=== PATIENT | female | born 1955 | race Caucasian/White ===

== ENCOUNTER → 2016-06-23 | Outpatient (CLI) | payer BC ==
--- NOTE | 2016-07-04 20:24 | P.PN ---
Progress Note - Text DATE OF CONSULTATION: 06/23/2016 DATE OF SERVICE: 06/23/2016 CHIEF COMPLAINT: Initial bariatric assessment. HISTORY OF PRESENT ILLNESS: Norman Bain is a 61-year-old female who comes in for bariatric evaluation. Her highest weight is currently at present of 206 pounds. Her ideal body for her 5-foot, 2-1/2-frame is 135 pounds. She is at least 71 pounds overweight. Body mass index is 37.1. She comes in with primary concerns of sleep apnea including hypertension. She also reports osteoarthritis of the bilateral hip and knee joints. In addition, she has severe gastroesophageal reflux disease as well. She reports despite eating foods she also has epigastrium and right upper quadrant abdominal pain. Now she presents for further evaluation and management. PAST MEDICAL HISTORY: 1. Osteoarthritis. 2. Gastroesophageal reflux disease. 3. History of hiatal hernia. 4. Obstructive sleep apnea. 5. Osteoarthritis of diffuse joints. PAST SURGICAL HISTORY: 1. Upper endoscopy. 2. Adenoidectomy. 3. Hysterectomy. 4. Tonsillectomy. 5. Bilateral laparoscopic oophorectomy. 6. Colonoscopy. 7. History of lithotripsy. 8. EGD. MEDICATIONS: 1. Omeprazole. 2. Motrin. ALLERGIES: 1. ASPIRIN. 2. LATEX. 3. PENICILLIN. 4. SULFA. SOCIAL HISTORY: Lifelong nontobacco user. She is . FAMILY HISTORY: Denies any esophageal or stomach cancer. REVIEW OF SYSTEMS: CONSTITUTIONAL: [place] body weight of 135 pounds. Present weight of 206 pounds. Body mass index of 37.1. She is 71 pounds overweight. HEENT: No reports of trouble with vision, hearing or dysphagia. LYMPHATICS: No reports of lumps or bumps around the neck. RESPIRATORY: Has obstructive sleep apnea, untreated. No reports of dyspnea on exertion. CARDIOVASCULAR: No recent chest pain, heart attack. GASTROINTESTINAL: Has a diaphragmatic hiatal hernia including right upper quadrant and epigastric abdominal pain. MUSCULOSKELETAL: Diffuse osteoarthritis where she takes Motrin. NEURO: No reports of stroke or seizure disorder. PSYCH: No reports of depression or suicidal ideation. PHYSICAL EXAM: VITAL SIGNS: 97.5, 86, 16, 131/87; 5 feet 2-1/2 inches, 206 pounds. GENERAL: Well-developed, pleasant female in no acute distress. HEENT: Head is atraumatic, normocephalic. Extraocular movements grossly intact. Moist buccal mucosa. NECK: Supple without lymphadenopathy. CHEST: Nonlabored respirations with bilateral excursions. CARDIOVASCULAR: Regular rate and rhythm. ABDOMEN: Protuberant, soft, nontender, nondistended. MUSCULOSKELETAL: No clubbing, cyanosis, or edema. NEURO: No focal or lateralizing signs. LABS: Hemoglobin was normal at 13.5. Sodium was slightly of 146. Glucose was elevated at 148. ASSESSMENT: 1. Morbid obesity due to excess calories. 2. Body mass index of 37.1. 3. Gastroesophageal reflux disease. 4. Diaphragmatic hiatal hernia. 5. Obstructive sleep apnea. 6. Osteoarthritis diffuse along the lower back. 7. Osteoarthritis bilateral hips. 8. Osteoarthritis of bilateral knees. 9. Gallbladder disease. PLAN: 1. She reports discomfort along the epigastrium and right upper quadrant highly suspicious of gallbladder disease. Recommend right upper quadrant ultrasound for further evaluation and management. 2. In the interim, surgical options for Sabrina fundoplasty including gastric bypass were reviewed for symptomatic relief of reflux disease. She is specifically looking into a Benedict-en-Y gastric bypass. 3. Recommend bariatric diesel service journeyman classes. 4. Upper endoscopy is completed. 5. Recommend psych assessment. 6. Will need medical risk assessment. 7. Recommend followup upon completion of her laboratory work including additional information for bariatric metabolic profile. PLAN: 1. She reports medications for reflux are not working, I am highly suspicious for underlying gallbladder disease. Recommend right upper quadrant ultrasound. 2. She has completed already 6-month medical supervised weight loss. She demonstrated understanding for weight loss operations. 3. [place] [facility] data has been reviewed in detail between a band, sleeve gastrectomy and a gastric bypass. She elected for a gastric bypass especially for improvement of her reflux disease. Benefits and risks for all procedures were reviewed in detail. 4. Deep venous thrombosis prophylaxis per protocol. 5. Antibiotic prophylaxis per protocol. 6. At this time, still is pending additional consultants evaluation and primary care provider letter.
== END | disposition home or self-care (01) ==
CPT/HCPCS: 99211

== ENCOUNTER → 2016-06-25 | Outpatient (CLI) | payer BC ==
[2016-06-25 14:01] LABS: EKG EKG PERFORMED
[2016-06-25 14:40] LABS: CH 29.3; CHCM 32.5; HCT 41.1 % (34.0-46.0); HDW 2.69; HGB 13.3 gm/dL (11.4-16.0); MCH 29.2 pg (25.0-35.0); MCHC 32.2 g/dL (31.0-37.0); MCV 90.7 fL (80.0-100.0); Mean Platelet Volume 7.3; RBC 4.54 m/uL (3.80-5.40); RDW 13.6 % (11.5-15.5); WBC 6.8 k/uL (3.8-10.6)
[2016-06-25 14:49] LABS: Hemoglobin A1C 5.9 % (4.2-6.1)
[2016-06-25 15:52] LABS: ALT 27 U/L (9-52); AST 20 U/L (14-36); Alkaline Phosphatase 74 U/L (38-126); Anion Gap 11 mmol/L; Blood Urea Nitrogen 15 mg/dL (7-17); Calcium 9.1 mg/dL (8.4-10.2); Carbon Dioxide 27 mmol/L (22-30); Chloride 106 mmol/L (98-107); Cholesterol 243 mg/dL (<200); Glucose 126 mg/dL (74-99); HDL Cholesterol 49 mg/dL (40-60); Iron 73 ug/dL (37-170); Non-African American GFR(MDRD) >60 (>60 ml/min/1.73 sqM); Potassium 4.2 mmol/L (3.5-5.1); Sodium 144 mmol/L (137-145); Total Bilirubin 0.5 mg/dL (0.2-1.3); Triglycerides 447 mg/dL (<150)
[2016-06-25 16:33] LABS: % Iron Saturation 20.3 % (20-50); Total Iron Binding Capacity 359 ug/dL (265-497)
[2016-06-25 17:01] LABS: Vitamin B12 283 pg/mL (239-931)
[2016-06-29 07:24] LABS: Anabasine Urine <2.0 ng/mL (<2.0)
== END | disposition home or self-care (01) ==
LOC: LABWHC1 13:51
PROVIDERS: ATTEND Surgery Plastic and Reconstructive Surgery
DX: E66.01 Morbid (severe) obesity due to excess calories (principal); E89.1 Postprocedural hypoinsulinemia; D50.8 Other iron deficiency anemias; E55.9 Vitamin D deficiency, unspecified; E44.0 Moderate protein-calorie malnutrition; I11.9 Hypertensive heart disease without heart failure; G47.30 Sleep apnea, unspecified; Z68.37 Body mass index [BMI] 37.0-37.9, adult
CPT/HCPCS: 36415; 80053; 80061; 80323; 82306; 82607; 82728; 82746; 83036; 83540; 83550; 84425; 84443; 85027; 93005

== ENCOUNTER → 2016-09-23 | Outpatient (CLI) | payer BC ==
--- NOTE | 2016-09-23 19:16 | CONS ---
DATE OF CONSULTATION: 09/23/2016 CONSULTATION/NEW PATIENT EVALUATION 61-year-old lady who has been evaluated in the [facility] for possible obstructive sleep apnea/hypopnea syndrome. HISTORY OF PRESENT ILLNESS/SLEEP-WAKE EVALUATION: SLEEP SCHEDULE: Patient's usual sleep schedule on weekdays is from 8 or 9:00 p.m. until 6:00 a.m. and on weekends from around 9 and 10:00 p.m. until 7:38 a.m. FALLING ASLEEP: Sometimes she has problem with falling asleep, although no TV in bedroom. DURING SLEEP: She sleeps on the side position with her and according to him she has extremely loud snoring and she wakes up with gasping for air, sweating, grinding teeth, and nocturia at least 2 times per night. DURING THE DAY/WAKE STATE: In the morning she wakes up tired, has problems with memory, concentration. [place] Sleepiness Scale is 3. Sometimes patient has movements with her feet at night. PAST MEDICAL HISTORY: Positive for acid reflux, hiatal hernia, plantar fasciitis. History of 2 nasal fractures. PAST SURGICAL HISTORY: Tonsillectomy, hysterectomy, ovariectomy. MEDICATIONS: Vitamin D, omeprazole. SOCIAL HISTORY: Negative for smoking or using alcohol. REVIEW OF SYSTEMS: Multiple awakenings from sleep, snoring, sometimes sleepiness. No fevers. No double vision. No recent chest pain. No shortness of breath. No abdominal pain. No bleeding episodes. No blood in urine. No seizure episodes. FAMILY HISTORY: Heart problems, hyperlipidemia, stroke, arthritis, sinus problems, snoring, acid reflux neck. PHYSICAL EXAMINATION: GENERAL: During physical exam lady without distress. VITAL SIGNS: BP 134/74, HR 92, RR 16. Height 5 feet 2-1/2, weight 209. BMI 37.6. Neck 14-1/2 inches in circumference. Temperature 98.2. Oxygen saturation at room air 95%. HEENT: PERRLA, EOMI. Evaluation of oropharynx showed short distance between soft palate and posterior pharyngeal wall. Some restriction of nasal breathing, possibly nasal septum deviation. NECK: Supple. No JVD. Thyroid is not palpable. LUNGS: Clear to percussion and to auscultation. Good air exchange. No wheezing or rhonchi. HEART: S1, S2 regular. No murmurs, gallops or rubs. ABDOMEN: Slightly obese. Soft and nontender. Bowel sounds are present. No organomegaly appreciated. EXTREMITIES: No clubbing or cyanosis. ACCOUNTS SPECIALIST: Awake, alert, and oriented x3. Cranial nerves 2 to 7 intact. There is no fasciculation or atrophy noted. No focal deficits observed. IMPRESSION: 1. Loud snoring, awakenings from sleep with gasping for air, short distance between soft palate and pharyngeal wall, some restriction of nasal breathing, nocturia, obstructive sleep apnea-hypopnea syndrome. 2. Obesity, body mass index of 37.6. 3. History of nightmares. 4. History of movement of feet during the night; possible PLMS. 5. History of plantar fasciitis. 6. Status post several nasal fractures. 7. Possible nasal septum deviation. 8. Acid reflux. 9. Hiatal hernia. 10. Status post hysterectomy. 11. Status post ovariectomy. 12. Status post tonsillectomy. PLAN: 1. Polysomnography for evaluation of patient's breathing during sleep. 2. CPAP/BiPAP titration if sleep study confirms obstructive sleep apnea-hypopnea syndrome. 3. Preferable position during sleep on the side. 4. No driving if patient feels any sleepiness. Patient is aware of civil and criminal liability for unsafe driving. 5. I will see patient for follow-up visit to explain results of the testing and following plan. Thank you very much for referring this patient for consultation. Sincerely, Charbel Petty MD, PhD, FAASM. Diplomat of [place] [employer], Sleep Medicine Board by [employer] [employer] [facility] [employer] [facility]
== END | disposition home or self-care (01) ==
LOC: SLEEP 14:41
PROVIDERS: ATTEND Internal Medicine
DX: G47.33 Obstructive sleep apnea (adult) (pediatric) (principal); E66.9 Obesity, unspecified; Z68.37 Body mass index [BMI] 37.0-37.9, adult; K21.9 Gastro-esophageal reflux disease without esophagitis; Z79.899 Other long term (current) drug therapy
CPT/HCPCS: 99211

== ENCOUNTER 2016-11-15 23:41 | Emergency (ER) | payer BC ==
[2016-11-15 23:51] VITALS: TEMP 96.9
[2016-11-16] MEDS ORDERED: SODIUM CHLORIDE 0.9% 500 ML IV STA (00:03)
[2016-11-16] MEDS ORDERED: diphenhydrAMINE 50 MG/ML 1 ML VIAL IVP STA (00:03)
--- NOTE | 2016-11-16 01:19 | XR ---
EXAM: XR Chest, 2 Views CLINICAL HISTORY: Reason: dysrhythmia TECHNIQUE: Frontal and lateral views of the chest. COMPARISON: 12/30/15. FINDINGS: Mild left base atelectasis. No consolidation or vascular congestion. Tortuous aorta. No pleural effusion or pneumothorax. IMPRESSION: No evidence of acute pulmonary disease
--- NOTE | 2016-11-16 01:42 | ED ---
Arrhythmia/Palpitations HPI - General Chief Complaint: Arrhythmia/Palpitations Stated Complaint: Allergic Reaction Time Seen by Provider: 11/15/16 23:59 Source: patient Mode of arrival: ambulatory Limitations: no limitations - History of Present Illness Initial Comments: Patient complains of palpitations. She thinks it might be related to medication she is taking. She also has a rash. She denies any fever, chills, chest pain or shortness of breath. She has no belly or back pain. She has no nausea or vomiting. She has no pain or swelling in the legs. Nothing makes her symptoms of palpitations better or worse. She has taken no specific medication for this. She denies any recent long plane or cards. - Related Data Home Medications Medication Instructions Recorded Confirmed Ibuprofen [Motrin] 1 mg PO Q6HR PRN 05/19/16 06/23/16 Previous Rx's Medication Instructions Recorded Omeprazole 40 mg PO AC-BRKFST #90 cap 12/17/15 Ergocalciferol [Vitamin D2 50,000 unit PO Q7D #12 cap 07/27/16 (DRISDOL)] Allergies Allergy/AdvReac Type Severity Reaction Status Date / Time acetaminophen [From [place]] Allergy Unknown Verified 11/15/16 23:47 aspirin Allergy asthma Verified 11/15/16 23:46 attack hydrocodone [From [place]] Allergy Unknown Verified 11/15/16 23:47 latex Allergy Anaphylaxis Verified 11/15/16 23:46 Penicillins Allergy Rash/Hives Verified 11/15/16 23:46 Sulfa (Sulfonamide Allergy painful Verified 11/15/16 23:46 Antibiotics) rash Review of Systems ROS Statement: Those systems with pertinent positive or pertinent negative responses have been documented in the HPI. ROS Other: All systems not noted in ROS Statement are negative. Past Medical History Past Medical History: GERD/Reflux, Hyperlipidemia Additional Past Medical History / Comment(s): migraines, History of Any Multi-Drug Resistant Organisms: None Reported Past Surgical History: Adenoidectomy, Hysterectomy, Tonsillectomy Additional Past Surgical History / Comment(s): BILATERAL oophorectomy,emergency laproscopic surgery, egd, colonoscopy and shockwave lithotripsy Past Anesthesia/Blood Transfusion Reactions: Previous Problems w/ Anesthesia, Postoperative Nausea & Vomiting (PONV) Additional Past Anesthesia/Blood Transfusion Reaction / Comment(s): "was in coma for 4 days after exploratory laproscopy had very low blood pressure. Prior to surgery,had internal bleeding " Past Psychological History: No Psychological Hx Reported Smoking Status: Never smoker Past Alcohol Use History: None Reported Past Drug Use History: None Reported - Past Family History Mother Family Medical History: Deep Vein Thrombosis (DVT) General Exam Limitations: no limitations General appearance: alert, in no apparent distress Head exam: Present: atraumatic, normocephalic, normal inspection Eye exam: Present: normal appearance, PERRL, EOMI. Absent: scleral icterus, conjunctival injection, periorbital swelling ENT exam: Present: normal exam, mucous membranes moist Neck exam: Present: normal inspection. Absent: tenderness, meningismus, lymphadenopathy Respiratory exam: Present: normal lung sounds bilaterally. Absent: respiratory distress, wheezes, rales, rhonchi, stridor Cardiovascular Exam: Present: regular rate, normal rhythm, normal heart sounds. Absent: systolic murmur, diastolic murmur, rubs, gallop, clicks GI/Abdominal exam: Present: soft, normal bowel sounds. Absent: distended, tenderness, guarding, rebound, rigid Extremities exam: Present: normal inspection, full ROM, normal capillary refill. Absent: tenderness, pedal edema, joint swelling, calf tenderness Back exam: Present: normal inspection Neurological exam: Present: alert, oriented X3, CN II-XII intact Psychiatric exam: Present: normal affect, normal mood Skin exam: Present: warm, dry, intact, normal color. Absent: rash Course Vital Signs 11/15/16 23:47 Temperature 96.9 F L Pulse Rate 88 Respiratory 18 Rate Blood Pressure 170/77 O2 Sat by Pulse 98 Oximetry EKG Findings - EKG Comments: EKG Findings:: Twelve-lead EKG obtained, interpreted by me as showing ventricular rate 87 bpm, normal ID interval and QRS complexes, no ST elevation or depression, interpreted by me as normal sinus rhythm. Medical Decision Making - Medical Decision Making Patient complained of palpitations. She also had a rash. Her labs are normal. Her exam is benign. Her EKG is unremarkable. There is no evidence of an emergency condition. Patient is stable for discharge. - Lab Data Result diagrams: 11/16/16 01:31 11/16/16 01:31 Lab Results 11/16/16 11/16/16 11/16/16 Range/Units 01:31 01:31 01:31 WBC 8.0 (3.8-10.6) k/uL RBC 4.31 (3.80-5.40) m/uL Hgb 12.4 (11.4-16.0) gm/dL Hct 38.6 (34.0-46.0) % MCV 89.6 (80.0-100.0) fL MCH 28.8 (25.0-35.0) pg MCHC 32.1 (31.0-37.0) g/dL RDW 13.6 (11.5-15.5) % Plt Count 278 (150-450) k/uL Neutrophils % 67 % Lymphocytes % 22 % Monocytes % 6 % Eosinophils % 3 % Basophils % 2 % Neutrophils # 5.3 (1.3-7.7) k/uL Lymphocytes # 1.7 (1.0-4.8) k/uL Monocytes # 0.5 (0-1.0) k/uL Eosinophils # 0.2 (0-0.7) k/uL Basophils # 0.1 (0-0.2) k/uL PT 9.9 (9.0-12.0) sec INR 1.0 (<1.1) APTT 21.2 L (22.0-30.0) sec Sodium 141 (137-145) mmol/L Potassium 3.8 (3.5-5.1) mmol/L Chloride 108 H (98-107) mmol/L Carbon Dioxide 22 (22-30) mmol/L Anion Gap 11 mmol/L BUN 15 (7-17) mg/dL Creatinine 1.00 (0.52-1.04) mg/dL Est GFR (MDRD) Af Amer >60 (>60 ml/min/1.73 sqM) Est GFR (MDRD) Non-Af 57 (>60 ml/min/1.73 sqM) Glucose 103 H (74-99) mg/dL Calcium 8.7 (8.4-10.2) mg/dL Magnesium 2.0 (1.6-2.3) mg/dL Total Bilirubin 0.5 (0.2-1.3) mg/dL AST 19 (14-36) U/L ALT 28 (9-52) U/L Alkaline Phosphatase 62 (38-126) U/L Troponin I (0.000-0.034) ng/mL Total Protein 6.4 (6.3-8.2) g/dL Albumin 3.8 (3.5-5.0) g/dL TSH 2.500 (0.465-4.680) mIU/L 11/16/16 Range/Units 01:31 WBC (3.8-10.6) k/uL RBC (3.80-5.40) m/uL Hgb (11.4-16.0) gm/dL Hct (34.0-46.0) % MCV (80.0-100.0) fL MCH (25.0-35.0) pg MCHC (31.0-37.0) g/dL RDW (11.5-15.5) % Plt Count (150-450) k/uL Neutrophils % % Lymphocytes % % Monocytes % % Eosinophils % % Basophils % % Neutrophils # (1.3-7.7) k/uL Lymphocytes # (1.0-4.8) k/uL Monocytes # (0-1.0) k/uL Eosinophils # (0-0.7) k/uL Basophils # (0-0.2) k/uL PT (9.0-12.0) sec INR (<1.1) APTT (22.0-30.0) sec Sodium (137-145) mmol/L Potassium (3.5-5.1) mmol/L Chloride (98-107) mmol/L Carbon Dioxide (22-30) mmol/L Anion Gap mmol/L BUN (7-17) mg/dL Creatinine (0.52-1.04) mg/dL Est GFR (MDRD) Af Amer (>60 ml/min/1.73 sqM) Est GFR (MDRD) Non-Af (>60 ml/min/1.73 sqM) Glucose (74-99) mg/dL Calcium (8.4-10.2) mg/dL Magnesium (1.6-2.3) mg/dL Total Bilirubin (0.2-1.3) mg/dL AST (14-36) U/L ALT (9-52) U/L Alkaline Phosphatase (38-126) U/L Troponin I <0.012 (0.000-0.034) ng/mL Total Protein (6.3-8.2) g/dL Albumin (3.5-5.0) g/dL TSH (0.465-4.680) mIU/L Disposition Clinical Impression: Palpitation Disposition: HOME SELF-CARE Condition: Good Instructions: Palpitations (ED) Referrals: Jessica Mulligan III, MD [Primary Care Provider] - 1-2 days Time of Disposition: 02:49
[2016-11-16 01:49] LABS: Basophils # (A) 0.1 k/uL (0-0.2); Basophils % (A) 2 %; CH 29.2; CHCM 32.7; Eosinophils # (A) 0.2 k/uL (0-0.7); Eosinophils % (A) 3 %; HCT 38.6 % (34.0-46.0); HDW 2.56; HGB 12.4 gm/dL (11.4-16.0); Luc # (Auto) 0.16; Luc % (Auto) 2; Lymphocytes # (A) 1.7 k/uL (1.0-4.8); Lymphocytes % (A) 22 %; MCH 28.8 pg (25.0-35.0); MCHC 32.1 g/dL (31.0-37.0); MCV 89.6 fL (80.0-100.0); Mean Platelet Volume 6.5; Monocytes # (A) 0.5 k/uL (0-1.0); Monocytes % (A) 6 %; Neutrophils # (A) 5.3 k/uL (1.3-7.7); Neutrophils % (A) 67 %; RBC 4.31 m/uL (3.80-5.40); RDW 13.6 % (11.5-15.5); WBC (Perox) 8.25
[2016-11-16 01:55] LABS: Prothrombin Time 9.9 sec (9.0-12.0)
[2016-11-16 02:06] LABS: ALT 28 U/L (9-52); AST 19 U/L (14-36); Alkaline Phosphatase 62 U/L (38-126); Anion Gap 11 mmol/L; Blood Urea Nitrogen 15 mg/dL (7-17); Calcium 8.7 mg/dL (8.4-10.2); Carbon Dioxide 22 mmol/L (22-30); Chloride 108 mmol/L (98-107); Glucose 103 mg/dL (74-99); Non-African American GFR(MDRD) 57 (>60 ml/min/1.73 sqM); Potassium 3.8 mmol/L (3.5-5.1); Sodium 141 mmol/L (137-145); Total Bilirubin 0.5 mg/dL (0.2-1.3); Total Protein 6.4 g/dL (6.3-8.2)
[2016-11-16 02:07] LABS: Partial Thromboplastin Time 21.2 sec (22.0-30.0)
[2016-11-16 03:04] VITALS: BP 119/61; PULSE 79; RESP 16
== END 2016-11-16 03:04 | disposition home or self-care (01) ==
LOC: EC 23:41
DX: R00.2 Palpitations (principal); R21 Rash and other nonspecific skin eruption; Z88.0 Allergy status to penicillin; Z88.2 Allergy status to sulfonamides; Z88.5 Allergy status to narcotic agent; Z88.6 Allergy status to analgesic agent; Z91.040 Latex allergy status
CPT/HCPCS: 99283; 96374; 96361 ×3; 36415; 93005; 80053; 83735; 84443; 84484; 85025; 85610; 85730; 71020; J1200

== ENCOUNTER → 2016-11-17 | Outpatient (CLI) | payer BC ==
--- NOTE | 2016-11-17 15:41 | XR ---
EXAMINATION TYPE: XR KUB DATE OF EXAM: 11/17/2016 COMPARISON: 05/28/2016 INDICATION: Ureteral calculus TECHNIQUE: Single view abdomen supine view FINDINGS: There is a normal bowel gas pattern. Psoas margins are normal. No organomegaly is present. Suspicious renal or ureteral stones are not identified. Phleboliths within the pelvis are stable. Pre vious right renal stone is not excluded although overlies fecal debris on the abdomen supine projecti on. IMPRESSION: 1. Unremarkable Abdomen
== END | disposition home or self-care (01) ==
LOC: RADXRMAIN 14:20
PROVIDERS: ATTEND Physician Assistant
DX: N20.1 Calculus of ureter (principal)
CPT/HCPCS: 74000

== ENCOUNTER → 2016-12-13 | Outpatient (CLI) | payer BC ==
[2016-12-13 13:14] VITALS: BMI 37.0
== END | disposition home or self-care (01) ==
LOC: BARWHC3 07:37
PROVIDERS: ATTEND Surgery Plastic and Reconstructive Surgery
DX: E66.01 Morbid (severe) obesity due to excess calories (principal); Z71.3 Dietary counseling and surveillance
CPT/HCPCS: 97804

== ENCOUNTER → 2016-12-15 | Outpatient (CLI) | payer BC ==
[2016-12-15 14:44] LABS: Basophils # (A) 0.1 k/uL (0-0.2); Basophils % (A) 1 %; CH 28.9; CHCM 33.2; Eosinophils # (A) 0.2 k/uL (0-0.7); Eosinophils % (A) 2 %; HCT 39.9 % (34.0-46.0); HDW 2.69; HGB 13.5 gm/dL (11.4-16.0); Luc # (Auto) 0.17; Luc % (Auto) 2; Lymphocytes # (A) 1.6 k/uL (1.0-4.8); Lymphocytes % (A) 19 %; MCH 29.6 pg (25.0-35.0); MCHC 33.9 g/dL (31.0-37.0); Mean Platelet Volume 6.8; Monocytes # (A) 0.5 k/uL (0-1.0); Monocytes % (A) 5 %; Neutrophils % (A) 71 %; RBC 4.57 m/uL (3.80-5.40); RDW 13.5 % (11.5-15.5); WBC 8.4 k/uL (3.8-10.6); WBC (Perox) 9.17
[2016-12-15 14:59] LABS: Anion Gap 10 mmol/L; Blood Urea Nitrogen 16 mg/dL (7-17); Calcium 9.4 mg/dL (8.4-10.2); Carbon Dioxide 28 mmol/L (22-30); Chloride 105 mmol/L (98-107); Glucose 109 mg/dL (74-99); Non-African American GFR(MDRD) >60 (>60 ml/min/1.73 sqM); Potassium 4.1 mmol/L (3.5-5.1); Sodium 143 mmol/L (137-145)
[2016-12-15 15:08] LABS: MCV 87.4 fL (80.0-100.0)
== END | disposition home or self-care (01) ==
LOC: LABWHC1 14:14
PROVIDERS: ATTEND Physician Assistant
DX: Z01.812 Encounter for preprocedural laboratory examination (principal); E78.5 Hyperlipidemia, unspecified; N20.0 Calculus of kidney
CPT/HCPCS: 36415; 80048; 85025

== ENCOUNTER 2016-12-20 08:28 | Day surgery (SDC) | payer BC ==
[2016-12-15 09:34] VITALS: BMI 37.5
[~2016-12-20 08:28] MED LIST: DEXAMETHASONE SOD PHOSPHATE 10 MG/ML 1 ML VIAL IV ONE; LACTATED RINGERS 1,000 ML IV SCH; LIDOCAINE 1% 20 ML VIAL (10MG/ML) FOR IV START INTRADERMA PRN; ONDANSETRON 4 MG/2 ML VIAL IVP ONE; Pre Op ABX Message 1 EACH MISC MISCELLANE ONE; SCOPOLAMINE 1.5MG/72HR PATCH TRANSDERM ONE; fentaNYL (PF) 50 MCG/ML 2 ML AMP IV PRN
--- NOTE | 2016-12-20 08:34 | XR ---
EXAMINATION TYPE: XR KUB DATE OF EXAM: 12/20/2016 8:21 AM CLINICAL HISTORY: Right-sided kidney stone, prelithotripsy. TECHNIQUE: 2 supine KUB images of the abdomen are obtained. COMPARISON: Abdominal x-ray November 17, 2016. CT abdomen and pelvis April 15, 2016. FINDINGS: There is stable 4 x 3 mm calculus right kidney projecting over right T12 rib centrally . Th ere are stable phleboliths bilaterally, right greater than left. Curvilinear calcifications above rig ht sacroiliac joint are redemonstrated presumed vascular. There is overall nonobstructive bowel gas pattern. Visualized osseous structures are intact. IMPRESSION: Stable positioning and appearance of 4 x 3 mm right mid renal calculus
[2016-12-20 09:15] VITALS: TEMP 96.9
[2016-12-20] MEDS ORDERED: PROPOFOL 10 MG/ML 20 ML VIAL IV ONE (09:57)
[2016-12-20] MEDS ORDERED: GLYCOPYRROLATE 0.2 MG/ML 2 ML VIAL ONE (09:57)
[2016-12-20] MEDS ORDERED: MIDAZOLAM 2 MG/2 ML VIAL ONE (09:57)
[2016-12-20] MEDS ORDERED: LIDOCAINE 1% INJ 10MG/ML (20 ML MDV) ONE (09:57)
[2016-12-20] MEDS ORDERED: KETAMINE 10 MG/ML 20 ML VIAL ONE (09:57)
[2016-12-20] MEDS ORDERED: fentaNYL (PF) 50 MCG/ML 2 ML AMP ONE (09:57)
--- NOTE | 2016-12-20 10:53 | P.OP ---
Date of Procedure: 12/20/16 Preoperative Diagnosis: Right renal calculus Postoperative Diagnosis: Same Procedure(s) Performed: Right Extracorporal Shockwave Lithotripsy (ESWL) Implants: Anesthesia: MAC Surgeon: Jayjay Owen Estimated Blood Loss (ml): 0 IV fluids (ml): 500 Pathology: none sent Condition: stable Disposition: PACU Indications for Procedure: She is a 61 year old female with a history of kidney stones. She was in [facility], and developed severe nausea, vomiting and right flank pain. She went to a local ER and CT showed a 3 mm distal right ureteral calculus and a 3 mm right renal calculus. There was no hydronephrosis. She passed the ureteral calculus, but a repeat KUB x-ray shows a persistent 4 mm right renal calculus. She now comes for ESWL. Operative Findings: Questionable fragmentation. Description of Procedure: The patient was taken to the operating room and placed on the Dornier Compact Delta II lithotripter in the supine position. The calculus was seen on biplanar fluoroscopy. Once the patient was properly positioned and sedated, lithotripsy was performed. The energy level was gradually increased per protocol, to an energy level of 5. After 200 shocks were administered, a 2 minute pause was instituted per protocol. A total of 2500 shocks were given at a rate of 80 shocks per minute. Fluoroscopy was utilized at a minimum to ensure proper positioning and determine the treatment status. The appearance of the calculus appeared to change, suggesting fragmentation may have occurred. The patient tolerated the procedure well was taken to the recovery room in stable condition. Instructions were given to strain the urine, and the patient will follow-up within one week.
[2016-12-20 11:28] VITALS: RESP 16
[2016-12-20 11:42] VITALS: BP 134/73; PULSE 70
== END 2016-12-20 12:48 | disposition home or self-care (01) ==
LOC: ORWHC2ENDO 08:28
PROVIDERS: ATTEND Urology
DX: N20.0 Calculus of kidney (principal); E78.5 Hyperlipidemia, unspecified; J45.909 Unspecified asthma, uncomplicated; G47.33 Obstructive sleep apnea (adult) (pediatric); K21.9 Gastro-esophageal reflux disease without esophagitis; Z79.899 Other long term (current) drug therapy; Z88.5 Allergy status to narcotic agent; Z88.0 Allergy status to penicillin; Z88.2 Allergy status to sulfonamides; Z88.8 Allergy status to other drugs, medicaments and biological substances; Z91.040 Latex allergy status
CPT/HCPCS: 74000; 50590; J2250; J2001; J3010; J2704

== ENCOUNTER → 2016-12-23 | Outpatient (CLI) | payer BC ==
[2016-12-23 11:15] VITALS: BP 132/93; PULSE 81; RESP 16; TEMP 97.9; BMI 36.9
--- NOTE | 2017-01-16 11:41 | P.PN ---
Progress Note - Text DATE OF SERVICE: 12/23/2016 CHIEF COMPLAINT: Bariatric assessment. HISTORY OF PRESENT ILLNESS: Norman Bain is a 61-year-old female who initially presented to the bariatric center, June 2016. Her initial weight was 206 pounds. Today she comes in weighing 205 pounds. She has lost 1 pound in 7 months. Her ideal body for her 5-foot, 2-1/2-frame is 135 pounds. She is 70 pounds overweight. Body mass index is 36.9. She has sleep apnea including hypertension. She reports gastroesophageal reflux disease. Recently, she was treated for kidney stones. She has developed gastric bypass to address her reflux disease as well. She reports having recent procedure and has developed severe postoperative nausea and vomiting. She also reports intolerance to Flomax including Dilaudid. PAST MEDICAL HISTORY: 1. Osteoarthritis. 2. Gastroesophageal reflux disease. 3. History of hiatal hernia. 4. Obstructive sleep apnea. 5. Osteoarthritis of diffuse joints. 6. Kidney stones. PAST SURGICAL HISTORY: 1. Upper endoscopy. 2. Adenoidectomy. 3. Hysterectomy. 4. Tonsillectomy. 5. Bilateral laparoscopic oophorectomy. 6. Colonoscopy. 7. History of lithotripsy. 8. EGD. 9. Cystoscopy. 10. Severe postoperative nausea and vomiting. MEDICATIONS: 1. Omeprazole. 2. Motrin. ALLERGIES: 1. ASPIRIN. 2. LATEX. 3. PENICILLIN. 4. SULFA. 5. FLOMAX. 5. DILAUDID. SOCIAL HISTORY: Lifelong nontobacco user. She is . FAMILY HISTORY: Denies any esophageal or stomach cancer. REVIEW OF SYSTEMS: CONSTITUTIONAL: [place] body weight of 135 pounds. Present weight of 205 pounds. Body mass index of 36.9. She is 70 pounds overweight. HEENT: No reports of trouble with vision, hearing or dysphagia. LYMPHATICS: No reports of lumps or bumps around the neck. RESPIRATORY: Has obstructive sleep apnea, untreated. No reports of dyspnea on exertion. CARDIOVASCULAR: No recent chest pain, heart attack. GASTROINTESTINAL: Has a diaphragmatic hiatal hernia including right upper quadrant and epigastric abdominal pain. MUSCULOSKELETAL: Diffuse osteoarthritis where she takes Motrin. GENITONURINARY: History of kidney stones with blood in urine. NEURO: No reports of stroke or seizure disorder. PSYCH: No reports of depression or suicidal ideation. SKIN: No skin cancer. No recent rash. PHYSICAL EXAM: VITAL SIGNS: 5 feet 2-1/2 inches, 205 pounds. BMI 36.9. Vital Signs 12/23/16 11:08 Temperature 97.9 F Pulse Rate 81 Respiratory 16 Rate Blood Pressure 132/93 GENERAL: Well-developed, pleasant female in no acute distress. HEENT: Head is atraumatic, normocephalic. Extraocular movements grossly intact. Moist buccal mucosa. NECK: Supple without lymphadenopathy. CHEST: Nonlabored respirations with bilateral excursions. CARDIOVASCULAR: Regular rate and rhythm. ABDOMEN: Protuberant, soft, nontender, nondistended. MUSCULOSKELETAL: No clubbing, cyanosis, or edema. NEURO: No focal or lateralizing signs. Cranial nerves II-12. SKIN: Good skin turgor. Well-perfused. LABS: Reviewed. ASSESSMENT: 1. Morbid obesity due to excess calories. 2. Body mass index of 36.9. 3. Gastroesophageal reflux disease. 4. Diaphragmatic hiatal hernia. 5. Obstructive sleep apnea. 6. Osteoarthritis diffuse along the lower back. 7. Osteoarthritis bilateral hips. 8. Osteoarthritis of bilateral knees. 9. Gallbladder disease. 10. Hypertensive heart disease. 11. History of kidney stones. 12. Metabolic syndrome. PLAN: 1. Benefits and risks of all surgical procedures were reviewed. She has elected for a Benedict-en-Y gastric bypass. 2. An 8 page second-generation bariatric consent form was reviewed in detail. Benefits and risks including leaks, stricture, nutritional deficiencies, need for further surgery were reviewed in detail. 3. DVT prophylaxis. 4. Antibiotic prophylaxis. 5. Recommend postop nausea vomiting protocol. 6. Inpatient hospitalization over 2 nights advised. 7. Potential robotic approach also reviewed with minimally invasive technique.
== END | disposition home or self-care (01) ==
LOC: BARWHC3 10:29
PROVIDERS: ATTEND Surgery Plastic and Reconstructive Surgery
DX: Z48.815 Encounter for surgical aftercare following surgery on the digestive system (principal); E66.01 Morbid (severe) obesity due to excess calories; Z68.36 Body mass index [BMI] 36.0-36.9, adult; K21.9 Gastro-esophageal reflux disease without esophagitis; K44.9 Diaphragmatic hernia without obstruction or gangrene; G47.33 Obstructive sleep apnea (adult) (pediatric); M47.816 Spondylosis without myelopathy or radiculopathy, lumbar region; M16.0 Bilateral primary osteoarthritis of hip; M17.0 Bilateral primary osteoarthritis of knee; I11.9 Hypertensive heart disease without heart failure; E88.81 Metabolic syndrome and other insulin resistance; Z87.442 Personal history of urinary calculi; Z88.6 Allergy status to analgesic agent; Z91.040 Latex allergy status; Z88.0 Allergy status to penicillin; Z88.2 Allergy status to sulfonamides; Z88.8 Allergy status to other drugs, medicaments and biological substances; Z88.5 Allergy status to narcotic agent; Z98.84 Bariatric surgery status
CPT/HCPCS: 99211

== ENCOUNTER → 2016-12-24 | Outpatient (CLI) | payer BC ==
--- NOTE | 2016-12-24 10:21 | XR ---
EXAMINATION TYPE: XR KUB DATE OF EXAM: 12/24/2016 HISTORY: Pain Comparison: 12/20/2016 Single KUB is submitted for interpretation. Findings: Right renal calculi: Previously noted right renal calculus is not identified at this time. Right ureteral calculi: None Visualized. Left renal calculi: None Visualized. Left ureteral calculi: None Visualized. Pelvic calcifications: Pelvic phleboliths remain stable. Bowel gas pattern is unremarkable. No free air. No mass effects. IMPRESSION: 1. Previously noted right renal calculus is not identified at this time.
== END | disposition home or self-care (01) ==
LOC: RADXRMAIN 10:00
PROVIDERS: ATTEND Urology
DX: N20.0 Calculus of kidney (principal)
CPT/HCPCS: 74000

== ENCOUNTER → 2017-02-08 | Outpatient (CLI) | payer BC ==
[2017-02-08 09:05] LABS: Basophils # (A) 0.1 k/uL (0-0.2); Basophils % (A) 1 %; CH 29.2; CHCM 33.1; Eosinophils # (A) 0.1 k/uL (0-0.7); Eosinophils % (A) 2 %; HCT 42.2 % (34.0-46.0); HDW 2.61; HGB 14.2 gm/dL (11.4-16.0); Luc % (Auto) 3; Lymphocytes # (A) 1.2 k/uL (1.0-4.8); Lymphocytes % (A) 19 %; MCH 29.7 pg (25.0-35.0); MCHC 33.6 g/dL (31.0-37.0); MCV 88.5 fL (80.0-100.0); Mean Platelet Volume 6.9; Monocytes # (A) 0.3 k/uL (0-1.0); Monocytes % (A) 5 %; Neutrophils # (A) 4.7 k/uL (1.3-7.7); Neutrophils % (A) 71 %; RBC 4.76 m/uL (3.80-5.40); RDW 13.8 % (11.5-15.5); WBC 6.6 k/uL (3.8-10.6); WBC (Perox) 6.54
[2017-02-08 09:06] LABS: ALT 39 U/L (9-52); AST 29 U/L (14-36); Alkaline Phosphatase 63 U/L (38-126); Anion Gap 11 mmol/L; Blood Urea Nitrogen 23 mg/dL (7-17); Calcium 9.8 mg/dL (8.4-10.2); Carbon Dioxide 27 mmol/L (22-30); Chloride 102 mmol/L (98-107); Glucose 150 mg/dL (74-99); Non-African American GFR(MDRD) 57 (>60 ml/min/1.73 sqM); Potassium 4.8 mmol/L (3.5-5.1); Sodium 140 mmol/L (137-145); Total Bilirubin 0.8 mg/dL (0.2-1.3); Total Protein 7.9 g/dL (6.3-8.2)
== END | disposition home or self-care (01) ==
LOC: LABPAT 08:09
PROVIDERS: ATTEND Surgery Plastic and Reconstructive Surgery
DX: Z01.812 Encounter for preprocedural laboratory examination (principal)
CPT/HCPCS: 36415; 80053; 85025

== ENCOUNTER 2017-02-14 06:08 | Inpatient (IN) | payer BC ==
[2017-02-08 15:26] VITALS: BMI 37.5
--- NOTE | 2017-02-13 12:46 | P.GSHP ---
History of Present Illness H&P Date: 02/14/17 DATE OF SERVICE: 02/14/2017 CHIEF COMPLAINT: Bariatric assessment. HISTORY OF PRESENT ILLNESS: Norman Bain is a 61-year-old female who initially presented to the bariatric center, June 2016. Her initial weight was 206 pounds. Today she comes in weighing 205 pounds. She has lost 1 pound in 7 months. Her ideal body for her 5-foot, 2-/2-frame is 135 pounds. She is 70 pounds overweight. Body mass index is 36.9. She has sleep apnea including hypertension. She reports gastroesophageal reflux disease. Recently, she was treated for kidney stones. She has developed gastric bypass to address her reflux disease as well. She reports having recent procedure and has developed severe postoperative nausea and vomiting. She also reports intolerance to Flomax including Dilaudid. PAST MEDICAL HISTORY: 1. Osteoarthritis. 2. Gastroesophageal reflux disease. 3. History of hiatal hernia. 4. Obstructive sleep apnea. 5. Osteoarthritis of diffuse joints. 6. Kidney stones. PAST SURGICAL HISTORY: 1. Upper endoscopy. 2. Adenoidectomy. 3. Hysterectomy. 4. Tonsillectomy. 5. Bilateral laparoscopic oophorectomy. 6. Colonoscopy. 7. History of lithotripsy. 8. EGD. 9. Cystoscopy. 10. Severe postoperative nausea and vomiting. MEDICATIONS: 1. Omeprazole. 2. Motrin. ALLERGIES: 1. ASPIRIN. 2. LATEX. 3. PENICILLIN. 4. SULFA. 5. FLOMAX. 5. DILAUDID. SOCIAL HISTORY: Lifelong nontobacco user. She is . FAMILY HISTORY: Denies any esophageal or stomach cancer. REVIEW OF SYSTEMS: CONSTITUTIONAL: [place] body weight of 135 pounds. Present weight of 205 pounds. Body mass index of 36.9. She is 70 pounds overweight. HEENT: No reports of trouble with vision, hearing or dysphagia. LYMPHATICS: No reports of lumps or bumps around the neck. RESPIRATORY: Has obstructive sleep apnea, untreated. No reports of dyspnea on exertion. CARDIOVASCULAR: No recent chest pain, heart attack. GASTROINTESTINAL: Has a diaphragmatic hiatal hernia including right upper quadrant and epigastric abdominal pain. MUSCULOSKELETAL: Diffuse osteoarthritis where she takes Motrin. GENITONURINARY: History of kidney stones with blood in urine. NEURO: No reports of stroke or seizure disorder. PSYCH: No reports of depression or suicidal ideation. SKIN: No skin cancer. No recent rash. PHYSICAL EXAM: VITAL SIGNS: 5 feet 2-1/2 inches, 205 pounds. BMI 36.9. GENERAL: Well-developed, pleasant female in no acute distress. HEENT: Head is atraumatic, normocephalic. Extraocular movements grossly intact. Moist buccal mucosa. NECK: Supple without lymphadenopathy. CHEST: Nonlabored respirations with bilateral excursions. CARDIOVASCULAR: Regular rate and rhythm. ABDOMEN: Protuberant, soft, nontender, nondistended. MUSCULOSKELETAL: No clubbing, cyanosis, or edema. NEURO: No focal or lateralizing signs. Cranial nerves II-12. SKIN: Good skin turgor. Well-perfused. LABS: Reviewed. ASSESSMENT: 1. Morbid obesity due to excess calories. 2. Body mass index of 36.9. 3. Gastroesophageal reflux disease. 4. Diaphragmatic hiatal hernia. 5. Obstructive sleep apnea. 6. Osteoarthritis diffuse along the lower back. 7. Osteoarthritis bilateral hips. 8. Osteoarthritis of bilateral knees. 9. Gallbladder disease. 10. Hypertensive heart disease. 11. History of kidney stones. 12. Metabolic syndrome. PLAN: 1. Benefits and risks of all surgical procedures were reviewed. She has elected for a Benedict-en-Y gastric bypass. 2. An 8 page second-generation bariatric consent form was reviewed in detail. Benefits and risks including leaks, stricture, nutritional deficiencies, need for further surgery were reviewed in detail. 3. DVT prophylaxis. 4. Antibiotic prophylaxis. 5. Recommend postop nausea vomiting protocol. 6. Inpatient hospitalization over 2 nights advised. 7. Potential robotic approach also reviewed with minimally invasive technique. Past Medical History Past Medical History: GERD/Reflux, Hyperlipidemia, Sleep Apnea/CPAP/BIPAP Additional Past Medical History / Comment(s): migraines, uses CPAP, hx. kidney stones, plantar fascitis History of Any Multi-Drug Resistant Organisms: None Reported Past Surgical History: Adenoidectomy, Hysterectomy, Tonsillectomy Additional Past Surgical History / Comment(s): BILATERAL oophorectomy,emergency laparoscopic surgery, egd, colonoscopy, lithotripsy Past Anesthesia/Blood Transfusion Reactions: Previous Problems w/ Anesthesia, Motion Sickness, Postoperative Nausea & Vomiting (PONV) Additional Past Anesthesia/Blood Transfusion Reaction / Comment(s): "was in coma for 4 days after exploratory laparoscopy had very low blood pressure. Prior to surgery,had internal bleeding " Smoking Status: Never smoker - Past Family History Mother Family Medical History: Deep Vein Thrombosis (DVT) Medications and Allergies Home Medications Medication Instructions Recorded Confirmed Type Ergocalciferol [Vitamin D2 1.5 mg PO TH 12/15/16 02/08/17 History (DRISDOL)] Omeprazole 40 mg PO DAILY PRN 12/15/16 02/08/17 History Mct Oil 1 tab PO DAILY 02/08/17 History Multivit with Calcium,Iron,Min 1 each PO DAILY 02/08/17 02/08/17 History [Women's Multivitamin] Allergies Allergy/AdvReac Type Severity Reaction Status Date / Time hydrocodone [From [place]] Allergy Severe Anaphylaxis Verified 02/08/17 12:35 acetaminophen [From [place]] Allergy Dyspnea Verified 02/08/17 12:35 aspirin Allergy asthma Verified 02/08/17 12:35 attack hydromorphone [From Dilaudid] Allergy Dyspnea Verified 02/08/17 12:35 latex Allergy Anaphylaxis Verified 02/08/17 12:35 Penicillins Allergy Rash/Hives Verified 02/08/17 12:35 Sulfa (Sulfonamide Allergy painful Verified 02/08/17 12:35 Antibiotics) rash tamsulosin Allergy Rash/Hives Verified 02/08/17 12:35
[~2017-02-14 06:08] MED LIST changes: +CHLORHEXIDINE GLUCONATE 15 ML CUP MUCOUS MEM ONE; -DEXAMETHASONE SOD PHOSPHATE 10 MG/ML 1 ML VIAL IV ONE; +ENOXAPARIN 40 MG/0.4 ML SYRINGE SQ ONE; -LACTATED RINGERS 1,000 ML IV SCH; -LIDOCAINE 1% 20 ML VIAL (10MG/ML) FOR IV START INTRADERMA PRN; +PANTOPRAZOLE 40 MG/10 ML VIAL IV STA; -SCOPOLAMINE 1.5MG/72HR PATCH TRANSDERM ONE; +SCOPOLAMINE 1.5MG/72HR PATCH TRANSDERM STA; +ceFAZolin 2 GM in SODIUM CHLORIDE 0.9% 100 ML IVPB ONE
[2017-02-14] MEDS: LACTATED RINGERS 1,000 ML IV SCH ×2 (06:34→13:37)
[2017-02-14] MEDS ORDERED: LIDOCAINE 1% 20 ML VIAL (10MG/ML) FOR IV START INTRADERMA ONE (06:37)
[2017-02-14] MEDS ORDERED: DEXAMETHASONE SOD PHOSPHATE 10 MG/ML 1 ML VIAL IV ONE (07:05)
[2017-02-14] MEDS ORDERED: LIDOCAINE 1% INJ 10MG/ML (20 ML MDV) ONE (07:36)
[2017-02-14] MEDS ORDERED: SUCCINYLCHOLINE CHLORIDE 100 MG/5 ML SYR IV ONE (07:36)
[2017-02-14] MEDS ORDERED: PHENYLEPHRINE-0.9% NACL SYG 1 MG/10 ML SYRINGE ONE (07:36)
[2017-02-14] MEDS ORDERED: fentaNYL (PF) 50 MCG/ML 2 ML AMP ONE (07:36)
[2017-02-14] MEDS ORDERED: MIDAZOLAM 2 MG/2 ML VIAL ONE (07:36)
[2017-02-14] MEDS ORDERED: LABETALOL 5 MG/ML VIAL MDV ONE (07:36)
[2017-02-14] MEDS ORDERED: VECURONIUM 10 MG VIAL IV ONE (07:36)
[2017-02-14] MEDS ORDERED: NEOSTIGMINE 1 MG/ML 10 ML VIAL ONE (07:36)
[2017-02-14] MEDS ORDERED: GLYCOPYRROLATE 0.2 MG/ML 2 ML VIAL ONE (07:36)
[2017-02-14] MEDS ORDERED: PROPOFOL 10 MG/ML 20 ML VIAL IV ONE (07:36)
--- NOTE | 2017-02-14 07:49 | P.HPADDEND ---
H&P Addendum H&P Addendum Date: 02/14/17 All benefits and risks of robotic approach gastric bypass as described in detail. Patient reports no recollection of ALLERGY to penicillin. Given high risk of infection, will proceed with Ancef. She reports severe postoperative nausea and vomiting for which, magnesium and postop nausea and vomiting protocol initiated.
[2017-02-14] MEDS ORDERED: BUPIVACAINE-EPI 0.5%-1:200,000 10 ML VIAL SQ ONE (08:36)
[2017-02-14] MEDS ORDERED: LACTATED RINGERS 1,000 ML IV ONE ×2 (09:13→11:42)
--- NOTE | 2017-02-14 11:54 | P.PCN ---
Date of Procedure: 02/14/17 Preoperative Diagnosis: Morbid obesity, sleep apnea, hypertension, gastroesophageal reflux disease Postoperative Diagnosis: Same, severe peritoneal adhesions involving the lower midline and omentum Procedure(s) Performed: Laparoscopic lysis of adhesions over 1 hour, laparoscopic gastric bypass 100 cm Benedict limb antecolic antigastric with 25 mm Orvil, intraoperative esophagogastrojejunoscopy Implants: Anesthesia: GETA, local Surgeon: Michelle Bernardo Estimated Blood Loss (ml): 20 Pathology: none sent Condition: stable Disposition: floor Indications for Procedure: Operative Findings: 1. Severe intra-abdominal adhesions involving greater omentum to abdominal wall with lysis of adhesions over 1 hour. 2. Hiatal hernia incorporating superior pole the stomach reduced adding complexity to the case, by 40 minutes 3. At least 4 robotic blue dorota used to divide gastric pouch with another 3 purple staplers 1-60 mm and 2-45 millimeter staplers to complete gastric pouch 4. 8 robotic dorota used throughout case. 5. Robotic console time 82 minutes 6. No ALLERGIC reaction to Ancef identified. Description of Procedure:
[2017-02-14] MEDS ORDERED: diphenhydrAMINE 50 MG/ML 1 ML VIAL IVP PRN (13:35)
[2017-02-14] MEDS ORDERED: NALOXONE 0.4 MG/ML 1 ML VIAL IV PRN ×2 (13:35→16:16)
[2017-02-14] MEDS ORDERED: ONDANSETRON 4 MG/2 ML VIAL IVP PRN (13:35)
[2017-02-14] MEDS ORDERED: ACETAMINOPHEN IV (For NPO) 1,000 MG in EMPTY BAG 1 BAG IVPB ONE (13:35)
[2017-02-14] MEDS: 0.9% NACL WITH KCL 20 MEQ/L 1,000 ML IV SCH (15:41)
[2017-02-14] MEDS: fentaNYL PCA 300 MCG/30 ML SYRINGE IV PRN (17:30)
[2017-02-14] MEDS: HYOSCYAMINE ORAL DROPS 1.875 MG/15 ML BOTTLE PO SCH (17:38)
[2017-02-14] MEDS: SIMETHICONE 40 MG/0.6 ML DROPS 2,000 MG/30 ML BOTTLE PO SCH (17:38)
[2017-02-14] MEDS: ALBUTEROL NEBULIZED 2.5 MG/3 ML INHALATION SCH ×2 (18:53→20:58)
--- NOTE | 2017-02-14 19:18 | P.PN ---
Progress Note - Text Patient seen and evaluated. Nausea controlled. She reports appropriate left lower quadrant soreness. She has a CPAP machine. She reports her pain is controlled with Tylenol. Discontinue Hahn in the morning.
[2017-02-15] MEDS: 0.9% NACL WITH KCL 20 MEQ/L 1,000 ML IV SCH ×2 (00:10→05:44)
[2017-02-15] MEDS: SIMETHICONE 40 MG/0.6 ML DROPS 2,000 MG/30 ML BOTTLE PO SCH ×4 (00:10→17:55)
[2017-02-15] MEDS: ceFAZolin 2 GM in SODIUM CHLORIDE 0.9% 100 ML IVPB SCH ×3 (00:12→16:30)
[2017-02-15] MEDS: HYOSCYAMINE ORAL DROPS 1.875 MG/15 ML BOTTLE PO SCH ×4 (00:23→17:55)
[2017-02-15] MEDS: fentaNYL PCA 300 MCG/30 ML SYRINGE IV PRN (03:51)
[2017-02-15] MEDS: LACTATED RINGERS 1,000 ML IV SCH (07:01)
[2017-02-15 07:46] LABS: Basophils % (A) 0 %; CHCM 33.5; Eosinophils % (A) 0 %; HCT 35.4 % (34.0-46.0); HDW 2.58; HGB 11.6 gm/dL (11.4-16.0); Luc # (Auto) 0.19; Luc % (Auto) 2; Lymphocytes # (A) 0.8 k/uL (1.0-4.8); Lymphocytes % (A) 6 %; MCH 29.4 pg (25.0-35.0); MCHC 32.7 g/dL (31.0-37.0); MCV 90.1 fL (80.0-100.0); Mean Platelet Volume 7.4; Monocytes # (A) 0.7 k/uL (0-1.0); Monocytes % (A) 5 %; Neutrophils # (A) 11.3 k/uL (1.3-7.7); Neutrophils % (A) 87 %; RBC 3.93 m/uL (3.80-5.40); RDW 14.8 % (11.5-15.5); WBC (Perox) 13.07
[2017-02-15 08:15] LABS: Anion Gap 7 mmol/L; Blood Urea Nitrogen 10 mg/dL (7-17); Calcium 7.8 mg/dL (8.4-10.2); Carbon Dioxide 24 mmol/L (22-30); Chloride 105 mmol/L (98-107); Magnesium 1.9 mg/dL (1.6-2.3); Non-African American GFR(MDRD) >60 (>60 ml/min/1.73 sqM); Phosphorous 3.2 mg/dL (2.5-4.5); Potassium 4.6 mmol/L (3.5-5.1); Sodium 136 mmol/L (137-145)
[2017-02-15] MEDS: ALBUTEROL NEBULIZED 2.5 MG/3 ML INHALATION SCH ×4 (08:29→19:28)
[2017-02-15] MEDS: PANTOPRAZOLE 40 MG/10 ML VIAL IV SCH (09:28)
[2017-02-15] MEDS: ENOXAPARIN 40 MG/0.4 ML SYRINGE SQ SCH ×2 (10:59→21:34)
[2017-02-15] MEDS: 1: MVI, ADULT NO.4 WITH VIT K 10 ML, THIAMINE 100 MG, FOLIC ACID 1 MG, POTASSIUM CHLORID IV SCH ×12 (11:17→23:10)
[2017-02-15] MEDS ORDERED: SODIUM CHLORIDE 0.9% 1,000 ML BAG ONE (11:17)
--- NOTE | 2017-02-15 14:28 | P.PN ---
<Shanique Guerrero M - Last Filed: 02/15/17 14:19> Subjective 62-year-old female being seen on rounds this morning resting comfortably in bed. Patient states pain medication has been effective for pain control. Patient is postop on February 14 laparoscopic lysis of adhesions laparoscopic gastric bypass r interoperative esophagogastrojejunoscopy patient currently is tolerating a bariatric clear liquid diet Objective - Vital Signs Vital signs: Vital Signs Temp 97.9 F 02/15/17 07:00 Pulse 80 02/15/17 11:53 Resp 18 02/15/17 07:00 BP 126/80 02/15/17 07:00 Pulse Ox 92 L 02/15/17 08:29 Intake & Output 02/14/17 02/15/17 02/15/17 18:59 06:59 18:59 Intake Total 2750 1800 Output Total 170 1200 950 Balance 2580 600 -950 Intake: IV 2750 1800 0.9% NaCl with KCl 20 Meq 1800 /l 1,000 ml @ 150 mls/hr IV .Q6H40M [facility] Rx#: [id number] Output: Urine 150 1200 950 Uretheral (Hahn) 1200 375 Estimated Blood Loss 20 Other: Voiding Method Indwelling Catheter Indwelling Catheter Indwelling Catheter # Voids 1 - Exam Physical exam 62-year-old female sitting in bed appears in no acute distress pleasant cooperative oriented 3 Lungs essentially clear adequate air entry no shortness of breath noted nasal cannula on 3 L keeping a sat greater than 95% no cough noted Heart S1-S2 audible regular Abdomen obese soft surgical dressing site dry surgical tenderness appropriate bowel tones present not distended Extremities no edema noted - Labs CBC & Chem 7: 02/15/17 07:02 02/15/17 07:02 Labs: Abnormal Lab Results - Last 24 Hours (Table) 02/15/17 02/15/17 Range/Units 07:02 07:02 WBC 13.0 H (3.8-10.6) k/uL Neutrophils # 11.3 H (1.3-7.7) k/uL Lymphocytes # 0.8 L (1.0-4.8) k/uL Sodium 136 L (137-145) mmol/L Calcium 7.8 L (8.4-10.2) mg/dL Assessment and Plan Plan: Impression History of sleep apnea Postop February 14 laparoscopic lysis of adhesions, laparoscopic gastric bypass , esophageal reflux disease Hiatal hernia Operative obesity BMI 37 Hypertension essential History of severe postoperative nausea vomiting Plan Bariatric clear diet Continue postop surgical care Prepped for probable discharge in the next 24 hours Continue the scopolamine patch as ordered Dietitian consult for nutritional support DVT and GI prophylaxis The above impression and plan of care have been discussed and directed by signing physician. Shanique Guerrero nurse practitioner acting as scribe for signing physician. <Michelle Bernardo N - Last Filed: 02/15/17 22:39> Objective - Vital Signs Vital signs: Vital Signs Temp 98.0 F 02/15/17 21:00 Pulse 94 02/15/17 21:00 Resp 16 02/15/17 21:00 BP 128/60 02/15/17 21:00 Pulse Ox 94 L 02/15/17 21:00 Intake & Output 02/15/17 02/15/17 02/16/17 06:59 18:59 06:59 Intake Total 1800 Output Total 1200 950 Balance 600 -950 Weight 92.986 kg Intake: IV 1800 0.9% NaCl with KCl 20 Meq 1800 /l 1,000 ml @ 150 mls/hr IV .Q6H40M [facility] Rx#: [id number] Output: Urine 1200 950 Uretheral (Hahn) 1200 375 Other: Voiding Method Indwelling Catheter Indwelling Catheter # Voids 1 - Labs CBC & Chem 7: 02/15/17 07:02 02/15/17 07:02 Labs: Abnormal Lab Results - Last 24 Hours (Table) 02/15/17 02/15/17 Range/Units 07:02 07:02 WBC 13.0 H (3.8-10.6) k/uL Neutrophils # 11.3 H (1.3-7.7) k/uL Lymphocytes # 0.8 L (1.0-4.8) k/uL Sodium 136 L (137-145) mmol/L Calcium 7.8 L (8.4-10.2) mg/dL Assessment and Plan Plan: Recommend Tylenol for pain for her severe allergies to morphine and dilaudid.
--- NOTE | 2017-02-15 21:20 | P.PN ---
Progress Note - Text Patient is tolerating liquids today. No reports of nausea and vomiting. She had minimal pain. Pain management with, was reviewed. Patient may be discharged home tomorrow with Tylenol elixir.
[2017-02-15] MEDS ORDERED: ACETAMINOPHEN ORAL SUSP 160 MG/5 ML CUP PO PRN (22:32)
[2017-02-16] MEDS: ceFAZolin 2 GM in SODIUM CHLORIDE 0.9% 100 ML IVPB SCH ×2 (00:20→08:41)
[2017-02-16] MEDS: HYOSCYAMINE ORAL DROPS 1.875 MG/15 ML BOTTLE PO SCH ×3 (00:21→13:00)
[2017-02-16] MEDS: SIMETHICONE 40 MG/0.6 ML DROPS 2,000 MG/30 ML BOTTLE PO SCH ×3 (00:22→12:59)
[2017-02-16 07:12] VITALS: BP 137/75; RESP 18; TEMP 98
[2017-02-16] MEDS: ALBUTEROL NEBULIZED 2.5 MG/3 ML INHALATION SCH ×2 (07:12→11:14)
[2017-02-16 07:45] LABS: Basophils % (A) 0 %; CHCM 33.6; Eosinophils % (A) 0 %; HCT 34.8 % (34.0-46.0); HDW 2.64; HGB 11.6 gm/dL (11.4-16.0); Luc # (Auto) 0.13; Luc % (Auto) 1; Lymphocytes # (A) 0.8 k/uL (1.0-4.8); Lymphocytes % (A) 6 %; MCH 29.8 pg (25.0-35.0); MCHC 33.2 g/dL (31.0-37.0); MCV 89.8 fL (80.0-100.0); Mean Platelet Volume 7.8; Monocytes # (A) 0.5 k/uL (0-1.0); Monocytes % (A) 5 %; Neutrophils # (A) 10.3 k/uL (1.3-7.7); Neutrophils % (A) 87 %; RBC 3.88 m/uL (3.80-5.40); RDW 14.9 % (11.5-15.5); WBC 11.8 k/uL (3.8-10.6); WBC (Perox) 11.89
[2017-02-16] MEDS: ENOXAPARIN 40 MG/0.4 ML SYRINGE SQ SCH (08:41)
[2017-02-16] MEDS: PANTOPRAZOLE 40 MG/10 ML VIAL IV SCH (08:41)
[2017-02-16] MEDS: 1: MVI, ADULT NO.4 WITH VIT K 10 ML, THIAMINE 100 MG, FOLIC ACID 1 MG, POTASSIUM CHLORID IV SCH ×6 (09:27)
[2017-02-16] MEDS ORDERED: SODIUM CHLORIDE 0.9% 1,000 ML BAG ONE (09:27)
[2017-02-16 11:28] VITALS: PULSE 92
--- NOTE | 2017-02-16 12:49 | P.PN ---
Subjective Principal diagnosis: Morbid obesity The patient is status post gastric bypass. No reports of nausea or vomiting. She tolerated her liquids. Her pain is controlled. She has been ambulating. No reports of abdominal pain. Objective - Vital Signs Vital signs: Vital Signs Temp 98.0 F 02/16/17 07:00 Pulse 92 02/16/17 11:26 Resp 18 02/16/17 07:00 BP 137/75 02/16/17 07:00 Pulse Ox 93 L 02/16/17 00:40 Intake & Output 02/15/17 02/16/17 02/16/17 18:59 06:59 18:59 Intake Total 1021.2 Output Total 950 Balance -950 1021.2 Weight 92.986 kg Intake: Intake, IV Titration 1021.2 Amount Mvi, Adult No.4 with Vit 1021.2 K 10 ml Thiamine 100 mg Folic Acid 1 mg Potassium Chloride 20 meq In Sodium Chloride 0.9% 1, 000 ml @ 100 mls/hr IV . BY DURATION [facility] Rx#: [id number] Output: Urine 950 Uretheral (Hahn) 375 Other: Voiding Method Indwelling Catheter Toilet Toilet # Voids 1 1 1 - Exam GENERAL: Well developed and in no acute distress. Pleasant. HEENT: No sclera icterus. Extraocular movements grossly intact. Moist buccal mucosa. Head is atraumatic, normocephalic. Hears conversational speech. No nasal drainage. NECK: Supple without lymphadenopathy. CHEST: Non-labored respirations and equal bilateral excursions. CARDIOVASCULAR: Regular rate and rhythm. Palpable 2+ radial pulses. ABDOMEN: Soft. Nondistended. Dressings clean dry and intact along the left upper quadrant. No signs of infection or cellulitis. MUSCULOSKELETAL: No clubbing, cyanosis or edema. NEUROLOGIC: No focal or lateralizing signs. PSYCH: Appropriate affect. Alert and oriented to person, place and time. - Labs CBC & Chem 7: 02/16/17 06:54 02/15/17 07:02 Labs: Abnormal Lab Results - Last 24 Hours (Table) 02/16/17 Range/Units 06:54 WBC 11.8 H (3.8-10.6) k/uL Neutrophils # 10.3 H (1.3-7.7) k/uL Lymphocytes # 0.8 L (1.0-4.8) k/uL Assessment and Plan (1) Sleep apnea Status: Acute (2) Reflux esophagitis Status: Acute (3) Essential hypertension Status: Acute (4) BMI 38.0-38.9,adult Status: Acute (5) Peritoneal adhesions Status: Acute (6) Morbid obesity Status: Acute Plan: 1. She may be discharged home. 2. Follow-up in the office in 24-48 hours.
--- NOTE | 2017-02-22 23:32 | P.OP ---
Date of Procedure: 02/14/17 Description of Procedure: SURGEON: KIM LEVY MD SHARE DAIRY FARMER: Pia Lanza PREOPERATIVE DIAGNOSES: 1. Morbid obesity due to excess calories. 2. Body mass index of 36.9. 3. Gastroesophageal reflux disease. 4. Diaphragmatic hiatal hernia. 5. Obstructive sleep apnea. 6. Osteoarthritis diffuse along the lower back. 7. Osteoarthritis bilateral hips. 8. Osteoarthritis of bilateral knees. 9. Gallbladder disease. 10. Hypertensive heart disease. 11. History of kidney stones. 12. Metabolic syndrome. POSTOPERATIVE DIAGNOSES: 1. Morbid obesity due to excess calories. 2. Body mass index of 36.9. 3. Gastroesophageal reflux disease. 4. Diaphragmatic hiatal hernia. 5. Obstructive sleep apnea. 6. Osteoarthritis diffuse along the lower back. 7. Osteoarthritis bilateral hips. 8. Osteoarthritis of bilateral knees. 9. Gallbladder disease. 10. Hypertensive heart disease. 11. History of kidney stones. 12. Metabolic syndrome. 13. 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 OPERATION: 1. Robotic assisted laparoscopic Benedict-en-Y gastric bypass, 100 cm antecolic antegastric Benedict limb, with 25 mm Orvil.. 2. Laparoscopic lysis of adhesions over 1 hour 3. Intraoperative esophagogastrojejunoscopy. ANESTHESIA: General with 20 mL local anesthetic ESTIMATED BLOOD LOSS: 20 mL SPECIMENS REMOVED: None. INDICATIONS: Norman Bain is a 61-year-old female who initially presented to the bariatric center, June 2016. Her initial weight was 206 pounds. Today she comes in weighing 205 pounds. Her ideal body for her 5-foot, 2-1/2-frame is 135 pounds. She is 70 pounds overweight. Body mass index is 36.9. She has sleep apnea including hypertension. She reports gastroesophageal reflux disease. All surgical options for morbid obesity had been described using the [place] bariatric surgery collaborative data including comorbidity resolution and complication risk score. The patient had elected for a gastric bypass with possible sleeve gastrectomy. A second- generation bariatric consent form was described in detail including the possibility of protein malnutrition, leaks, gastrojejunal stricture, venous thrombosis, need for further surgery for which she demonstrated understanding. Benefits and risks of the procedure were described at length. Informed consent was obtained. DESCRIPTION: The patient was brought into the operating room theater. She was placed on a split leg table. Preoperatively she had received Lovenox subcutaneously for DVT prophylaxis. Additionally she had undergone Peridex oral solution as an oral decontaminant. After general induction, the abdomen was prepped and draped in standard sterile fashion. Ioban draping was placed along the abdomen. A robotic da John Si system was prepped and primed. The xiphoid to umbilicus was measured of 21 cm. Proposed port sites were marked with indelible marker along the anterior axillary line bilaterally, mid clavicular line bilaterally with each port marked 10 cm from each other. The clerical assistant port was marked along the bilateral lower abdominal wall. The robotic stapler port was marked for the right midclavicular line. A 10 mm 0 degrees laparoscopic trocar entry was performed along the left upper quadrant. The abdomen was insufflated to 15 mmHg pressure she tolerated well. Diagnostic laparoscopy demonstrated no injury to bowel, viscera , or mesentery. The liver surface was unremarkable. No evidence of large prominent hiatal hernia was encountered. Severe peritoneal adhesions involving the lower pelvis was identified involving the greater omentum. A 12 mm camera port was placed left lateral to the umbilicus, 19 cm distal to the xiphoid. Next, 13-mm robot stapler port was placed along the right mid abdomen. The camera 12-mm port extended length was maintained along the epigastrium. An 8 mm robotic port was placed along the left upper abdominal wall after exchanging the 12 mm port. Two separate 12 mm ports were placed along the bilateral lower quadrant whereby extensive lysis of adhesions were performed witth a Kitner including a Sonicision for over an hour. The small bowel was investigated for interloop adhesions. Additional lysis of adhesions was performed. The greater omental adhesions were sharply lysed as described. All bariatric length robotic trochars were used. Please note that the ports were placed 18 to 20 cm away from the target anatomy of the stomach. Care was taken to check that each robotic arm was safely away from collision with the bed or the patient. At the epigastrium, a medium sized Yumiko liver retractor was placed under direct visualization with the Iron Burr Machine Operator placed over the right shoulder of the patient. The additional third robotic arm was placed along the left aspect of the patient. The patient was repositioned in reverse Trendelenburg position after lowering the bed. The robot was docked over the patient. Using a grasper for arm 3, a grasper for arm 1, including vessel sealer for arm 2, the robotic system was docked and primed as described. Instruments were interchanged by the clerical assistant including hook cautery, the needle light truck driver, and stapler. I had sat at the console. Next, the transverse mesocolon was reflected into the upper abdomen preparing for the jejunojejunostomy portion of the case. The transverse mesocolon was divided. The ligament of Treitz was identified and measured 60 cm antegrade and marked using 2-0 Vicryl. The jejunum was divided at the 60 cm point above the suture measurement. The biliopancreatic limb was held in place. The Benedict limb was measured 100 cm in an antegrade fashion to avoid tension along the proposed gastrojejunal anastomosis. At 100 cm along the anti-mesenteric border of the Benedict limb, a jejunojejunostomy was proposed whereby enterotomies were created along the biliopancreatic limb including the Benedict limb using a Bovie cautery. A stay suture of 2-0 Vicryl was placed to align and create the anastomosis. The enterotomies along the anti-mesenteric borders were created followed by unidirectional fire from the patient's right side using 2 - 45 mm blue load Smart technology robotic stapler. The jejunojejunostomy was found to be hemostatic. The enterotomy was closed after horizontal mattress stitch of 2-0 silk used to elevate the enterotomy followed by closure with the robotic stapler blue load. Attention was now brought to the creation of the gastrojejunostomy. Along the lesser curvature of the stomach between the second and third veins, dissection was made along the retrogastric space to allow first firing of the robotic staple. A hiatal hernia was identified of the anterior hiatus. Dense posterior gastric adhesions were identified, hence increasing the complexity of her case. Four fires of robotic dorota were used to start creation of a gastric pouch however given the difficulty of obtaining the posterior aspect of the stomach, the rest of the resection of the gastric pouch with proposed laparoscopically. The robot was undocked for completion of the gastric pouch and gastrojejunostomy using an Orvil. After the robot was undocked, attention was brought to the completion of the gastric pouch. A separate 3 Covidien purple staplers were used to separate the rest of the gastric pouch. She had moderate redundant posterior stomach adding additional 40 minutes complexity to her case. Complete separation of the gastric pouch from the gastric remnant was confirmed preventing future gastric gastric fistula. Prior to placing a Orvil, an intraoperative esophag gastroscopy was performed to evaluate the rest of the pouch. The pouch was completely intact. I then went at the bedside with the patient for completion of her operation. The patient was then prepared for placement of a Orvil. The patient was Mallampati 2. A 25-mm Orvil was selected for placement by the nurse welfare centre manager. The Orvil tubing was placed anterior to the staple line of the gastric pouch and brought out through the left inferior lateral port. The Orvil was then carefully and successfully navigated with the help of the nurse welfare centre manager into the gastric pouch. The sutures were identified and divided. The tubing was from the 25 mm anvil. Using aseptic technique all instruments including port sites were exchanged. As the Orvil had been placed, the blind jejunal limb was brought proximally into the upper abdomen. The transverse mesocolon was previously divided using the robot. No torsion was found upon the Benedict limb. No tension was identified as the limb was brought along the upper abdomen. The blind jejunal limb was opened using a cordless Harmonic scalpel. The 25-mm EEA stapler was brought through the left anterior lateral port site from the left side. Please note that the trocars from the Orvil tubing, including the port, were removed to minimize contamination from the oral reggie. The EEA stapler was brought through the open jejunal limb and its needle was deployed at the antimesenteric border where the anvil were mated for approximately 1 minute upon firing. The stapler was removed after irrigating the shaft of the instrument with warm normal saline. Donuts were found to be intact along the jejunum and however incomplete on the stomach end. Reinforcement sutures were placed at the 12:00 and 6 o'clock position of the anastomosis. The open jejunal limb defect was closed using a Covidien 60 mm mercedes load after releasing any tension from the blind jejunal limb. Hemostasis was checked with Sonicision along the blind jejunal limb mesentery. Care was taken to avoid any long blind limb to avoid candycane syndrome. The Peterson and jejunojejunostomy mesenteric defects were obliterated by her intra-abdominal fat. I then went to the head of the bed to perform the esophagogastrojejunoscopy and a leak test. An Olympus gastroscope was passed along the posterior oropharynx which was unremarkable for any injury to the vocal cords. The scope was passed down to the proximal portion of the pouch, whereby no active bleeding was encountered. Excellent visualization of the gastrojejunostomy anastomosis, including the Benedict limb was encountered with endoscopic image obtained. The anastomosis was found to be patent. The gastrointestinal tract was desufflated. No evidence of intraoperative leak was encountered as the gastric pouch and anastomosis were submerged under normal saline solution. I then went back to the bedside of the patient, whereby with coordinated effort of the clerical assistant, irrigation was aspirated from the upper abdominal cavity. Tisseel was placed circumferentially over the anastomosis of the gastrojejunostomy. All instruments and pneumoperitoneum were evacuated from the abdominal cavity. The port correlating with the EEA stapler device was copiously irrigated with 1 L of warm normal saline solution and 20 mL of hydrogen peroxide. The fascial defect of the EEA stapler was closed using Jamil Mcmahon and 0 Vicryl. The rest of incisions were reapproximated using 3-0 Vicryl for deep subcutaneous tissue and dermis followed by 4-0 Monocryl in a running subcuticular fashion. For local anesthetic, 0.50% Marcaine with epinephrine was infiltrated along the skin for postop analgesia. Dermabond was applied to the skin. OptiFoam dressing was placed along the EEA stapler site. At the end of the procedure, needle, sponge and instrument count had been verified correct by the surgical attendant. She had tolerated the procedure well and was extubated and taken to the postanesthesia unit in stable condition. Operative Findings: 1. Severe intra-abdominal adhesions involving greater omentum to abdominal wall with lysis of adhesions over 1 hour. 2. Hiatal hernia incorporating superior pole the stomach reduced adding complexity to the case, by 40 minutes 3. At least 4 robotic blue dorota used to divide gastric pouch with another 3 purple staplers 1-60 mm and 2-45 millimeter staplers to complete gastric pouch 4. 8 robotic dorota used throughout case. 5. Robotic console time 82 minutes 6. No ALLERGIC reaction to Ancef identified. 7. 2 additional 12 mm ports along the lower abdomen to address severe adhesions. 8. Intraoperative EGJ performed prior to placement of Orvil. 9. Incomplete donuts with reinforcement at 12:00 and 6 o'clock position of gastric stomach 10. Negative leak test. 11. Roberts defect and jejunojejunostomy defect obliterated by moderate intra- abdominal fat.
== END 2017-02-16 14:27 | disposition home or self-care (01) | DRG 620 ==
LOC: 2ORWHC 06:08 → 3SUR 11:56
PROVIDERS: ADMIT Surgery Plastic and Reconstructive Surgery; ATTEND Surgery Plastic and Reconstructive Surgery
PROC: 0DNW4ZZ Release Peritoneum, Percutaneous Endoscopic Approach (ICD-10-PCS; 2017-02-14)
PROC: 8E0W4CZ Robotic Assisted Procedure of Trunk Region, Percutaneous Endoscopic Approach (ICD-10-PCS; 2017-02-14)
PROC: 0DJ08ZZ Inspection of Upper Intestinal Tract, Via Natural or Artificial Opening Endoscopic (ICD-10-PCS; 2017-02-14)
PROC: 0D164ZA Bypass Stomach to Jejunum, Percutaneous Endoscopic Approach (ICD-10-PCS; principal; 2017-02-14 07:30)
DX: E66.01 Morbid (severe) obesity due to excess calories (principal); K95.89 Other complications of other bariatric procedure; E88.81 Metabolic syndrome and other insulin resistance; I11.9 Hypertensive heart disease without heart failure; Z68.38 Body mass index [BMI] 38.0-38.9, adult; K82.9 Disease of gallbladder, unspecified; K91.0 Vomiting following gastrointestinal surgery; E78.5 Hyperlipidemia, unspecified; G47.33 Obstructive sleep apnea (adult) (pediatric); K21.0 Gastro-esophageal reflux disease with esophagitis; K44.9 Diaphragmatic hernia without obstruction or gangrene; K66.0 Peritoneal adhesions (postprocedural) (postinfection); M16.0 Bilateral primary osteoarthritis of hip; M17.0 Bilateral primary osteoarthritis of knee; M47.9 Spondylosis, unspecified; G43.909 Migraine, unspecified, not intractable, without status migrainosus; M72.2 Plantar fascial fibromatosis; Z79.899 Other long term (current) drug therapy; Z87.442 Personal history of urinary calculi; Z90.710 Acquired absence of both cervix and uterus; Z90.722 Acquired absence of ovaries, bilateral; Z88.6 Allergy status to analgesic agent; Z88.1 Allergy status to other antibiotic agents; Z88.5 Allergy status to narcotic agent; Z88.0 Allergy status to penicillin; Z88.2 Allergy status to sulfonamides; Z88.8 Allergy status to other drugs, medicaments and biological substances; Z91.040 Latex allergy status
CPT/HCPCS: 80051; 82310; 82565; 83735; 84100; 84520; 85025; 86850; 86900; 86901; 94640; 94760; 94762

== ENCOUNTER → 2017-02-24 | Outpatient (CLI) | payer BC ==
[2017-02-24 11:40] VITALS: RESP 16; TEMP 98.1; BMI 34.7
[2017-02-24 12:37] VITALS: BP 125/83; PULSE 85
--- NOTE | 2017-03-07 08:54 | P.PN ---
Progress Note - Text DATE OF SERVICE: 02/24/2017 CHIEF COMPLAINT: Bariatric assessment. HISTORY OF PRESENT ILLNESS: Norman Bain is a 62-year-old female who initially presented to the bariatric center, June 2016. Her initial weight was 206 pounds. Today she comes in weighing 192 pounds. She has lost 12 pound in 1 week. Her ideal body for her 5-foot, 2-1/2-frame is 135 pounds. She is 57 pounds overweight. Body mass index is 34.7. Lifetime weight loss is 14 pounds. Percent excess weight loss is 19%. She is status post gastric bypass 02/14/2017. Gastroesophageal reflux disease is completely resolved. Epigastric discomfort is resolved. No reports of nausea or vomiting. No reports of fevers or chills. No reports of cellulitis or infection. No reports of constipation. She is passing flatus. PHYSICAL EXAM: VITAL SIGNS: 5 feet 2-1/2 inches, 192 pounds. BMI 34.7. Vital Signs Temp 98.1 F 02/24/17 11:27 Pulse 85 02/24/17 11:27 Resp 16 02/24/17 11:27 BP 125/83 02/24/17 11:27 Pulse Ox GENERAL: Well-developed, pleasant female in no acute distress. HEENT: Head is atraumatic, normocephalic. Extraocular movements grossly intact. Moist buccal mucosa. NECK: Supple without lymphadenopathy. CHEST: Nonlabored respirations with bilateral excursions. CARDIOVASCULAR: Regular rate and rhythm. ABDOMEN: Protuberant, soft. No signs of infection or cellulitis. Skin hypersensate along left lower quadrant. No peritoneal signs. MUSCULOSKELETAL: No clubbing, cyanosis, or edema. NEURO: No focal or lateralizing signs. Cranial nerves II-12. SKIN: Good skin turgor. Well-perfused. ASSESSMENT: 1. Morbid obesity due to excess calories. 2. Body mass index of 36.9 down to 34.7. 3. Gastroesophageal reflux disease. 4. Hypertensive heart disease. 5. Metabolic syndrome. 6. Status post gastric bypass. PLAN: 1. She was encouraged to take many pain medications as needed for discomfort. 2. Continue protein shake 75 g daily. 3. Fluid intake of 64 ounces advised. 4. Follow-up in the local office 1 week. 5. Follow-up in the bariatric center in 1 month.
== END | disposition home or self-care (01) ==
LOC: BARWHC3 10:48
PROVIDERS: ATTEND Surgery Plastic and Reconstructive Surgery
DX: Z48.815 Encounter for surgical aftercare following surgery on the digestive system (principal); E66.01 Morbid (severe) obesity due to excess calories; Z68.34 Body mass index [BMI] 34.0-34.9, adult; K21.9 Gastro-esophageal reflux disease without esophagitis; I11.9 Hypertensive heart disease without heart failure; E88.81 Metabolic syndrome and other insulin resistance; Z98.84 Bariatric surgery status
CPT/HCPCS: 97802; 99211

== ENCOUNTER → 2017-03-10 | Outpatient (CLI) | payer BC ==
--- NOTE | 2017-03-10 18:44 | PN ---
PROGRESS NOTE DATE OF SERVICE: 03/10/2017 62-year-old lady has been followed in [facility] Center for treatment of obstructive sleep apnea-hypopnea syndrome. Recently patient had been diagnosed with obstructive sleep apnea-hypopnea syndrome in moderate range, close to severe and I discussed results of the sleep study with the patient in details. Apnea-hypopnea index 26.3. After that the patient was started on auto-PAP by insurance requirement and with this regimen, patient has difficulties to use her machine because the pressure going up too much. Presently she is on standard regimen in the machine from 5 to 20 cm of water. She is able to use the machine 90% for more than 4 hour hours. Apnea-hypopnea index on the machine 1.9. Also, the patient was in the hospital for bariatric surgery and tried to use machine in the hospital, but again it was very difficult for her because she feels the pressure is too much. The Julian Sleepiness Scale today is 5. MEDICATIONS: Tylenol on p.r.n. basis for the pain. PHYSICAL EXAM: Patient in no distress. BP 124/73, HR 82, RR 16, height 5 foot 2, weight 196 pounds. Patient lost about 20 pounds since sleep study. Temp 98.2. HEENT: PERRLA, EOMI. Evaluation of oropharynx showed moderately low position of soft palate. NECK: Supple, no JVD. Thyroid is not palpable. LUNGS: Clear to percussion and to auscultation. Good air exchange. No wheezing or rhonchi. HEART: S1, S2 regular. No murmurs, gallops, or rubs. ABDOMEN: Soft and nontender. Bowel sounds are present. No organomegaly appreciated. EXTREMITIES: No clubbing or cyanosis. [employer] D[employer] CONSULTANT: Awake, alert, and oriented X3. Cranial nerves 2 to 7 intact. There is no fasciculation or atrophy. noted. No focal deficits observed. IMPRESSION: 1. Moderate close to severe obstructive sleep apnea-hypopnea syndrome. The patient demonstrated acceptable compliance with CPAP treatment, but has difficulties with treatment secondary to high pressure and has difficulties to tolerate the machine. She is on auto-PAP. 2. Status post recent bariatric surgery. Patient lost 20 pounds. 3. Obesity, present BMI 34. 4. Acid reflux. PLAN: 1. CPAP titration for evaluation of effective CPAP pressure. 2. I will decrease auto-PAP regimen down. 3. Continue losing weight. 4. Sleep hygiene with regular time in bed for at least 8 hours. 5. No driving if feeling sleepiness. Thank you very much for allowing me to participate in management of your patient. Sincerely, Charbel Petty MD, PhD, FAASM Diplomat of [place] [employer] Manager Legal of [facility] MMODL / IJN: [id number] /
--- NOTE | 2017-05-05 19:59 | PN ---
PROGRESS NOTE DATE OF SERVICE: 03/10/17. ADDENDUM: This is additional addition to dictation. This is the followup visit, which was done 03/10/2017. The patient is benefitting from treatment with CPAP. MMODL / IJN: [id number] /
== END ==
LOC: SLEEP 16:01
PROVIDERS: ATTEND Internal Medicine
DX: G47.33 Obstructive sleep apnea (adult) (pediatric) (principal); E66.9 Obesity, unspecified; K21.9 Gastro-esophageal reflux disease without esophagitis; Z68.34 Body mass index [BMI] 34.0-34.9, adult; Z79.899 Other long term (current) drug therapy

== ENCOUNTER → 2017-04-08 | Outpatient (CLI) | payer BC ==
[~2017-04-08] MED LIST changes: -CHLORHEXIDINE GLUCONATE 15 ML CUP MUCOUS MEM ONE; -ENOXAPARIN 40 MG/0.4 ML SYRINGE SQ ONE; -ONDANSETRON 4 MG/2 ML VIAL IVP ONE; -PANTOPRAZOLE 40 MG/10 ML VIAL IV STA; -Pre Op ABX Message 1 EACH MISC MISCELLANE ONE; -SCOPOLAMINE 1.5MG/72HR PATCH TRANSDERM STA; +SODIUM CHLORIDE 0.9% 500 ML in EMPTY BAG 1 BAG IV PRN; -ceFAZolin 2 GM in SODIUM CHLORIDE 0.9% 100 ML IVPB ONE; -fentaNYL (PF) 50 MCG/ML 2 ML AMP IV PRN
[2017-04-08 11:30] VITALS: BP 138/66; PULSE 80; RESP 16; TEMP 98.4
[2017-04-08] MEDS: SODIUM CHLORIDE 0.9% 1,000 ML IV NR ×2 (11:35→12:35)
[2017-04-08 12:41] LABS: ALT 29 U/L (9-52); AST 17 U/L (14-36); Alkaline Phosphatase 48 U/L (38-126); Anion Gap 10 mmol/L; Blood Urea Nitrogen 14 mg/dL (7-17); Calcium 9.1 mg/dL (8.4-10.2); Carbon Dioxide 24 mmol/L (22-30); Chloride 108 mmol/L (98-107); Cholesterol 195 mg/dL (<200); Glucose 106 mg/dL (74-99); HDL Cholesterol 46 mg/dL (40-60); Magnesium 1.9 mg/dL (1.6-2.3); Non-African American GFR(MDRD) >60 (>60 ml/min/1.73 sqM); Phosphorus 3.9 mg/dL (2.5-4.5); Sodium 142 mmol/L (137-145); Total Bilirubin 0.5 mg/dL (0.2-1.3); Total Protein 6.6 g/dL (6.3-8.2)
[2017-04-08 12:46] LABS: CHCM 31.5; HCT 38.7 % (34.0-46.0); HDW 2.62; HGB 12.1 gm/dL (11.4-16.0); Hypochromasia Slight; MCH 28.9 pg (25.0-35.0); MCHC 31.2 g/dL (31.0-37.0); MCV 92.6 fL (80.0-100.0); Mean Platelet Volume 8.2; RBC 4.18 m/uL (3.80-5.40); RDW 15.8 % (11.5-15.5); WBC 5.6 k/uL (3.8-10.6)
[2017-04-08 12:54] LABS: INR 1.1 (<1.2); Prothrombin Time 10.9 sec (9.0-12.0)
[2017-04-08 18:07] LABS: Iron Saturation 8.97 (12.00-45.00)
[2017-04-12 17:22] LABS: Selenium 113 mcg/L (63-160)
== END | disposition home or self-care (01) ==
LOC: PROCWHC3 10:59
PROVIDERS: ATTEND Surgery Plastic and Reconstructive Surgery
DX: N19 Unspecified kidney failure (principal); E86.0 Dehydration; E21.1 Secondary hyperparathyroidism, not elsewhere classified; D50.8 Other iron deficiency anemias; K90.89 Other intestinal malabsorption; E55.9 Vitamin D deficiency, unspecified; K50.90 Crohn's disease, unspecified, without complications
CPT/HCPCS: 36415; 80053; 80061; 82306; 82525; 82607; 82728; 82746; 83036; 83540; 83550; 83735; 83970; 84100; 84134; 84255; 84425; 84443; 84590; 84630; 85027; 85610; 85730; 96360; 96361

== ENCOUNTER 2017-04-13 09:02 | Day surgery (SDC) | payer BC ==
[2017-04-11 14:38] VITALS: BMI 33.3
--- NOTE | 2017-04-13 08:53 | P.GSHP ---
History of Present Illness H&P Date: 04/13/17 CHIEF COMPLAINT: GERD HISTORY OF PRESENT ILLNESS: The patient is a 62-year-old female who presents reports gastroesophageal reflux disease. Upper endoscopy was offered for further evaluation and management. PAST MEDICAL HISTORY: Please see list. PAST SURGICAL HISTORY: Please see list. MEDICATIONS: Please see list. ALLERGIES: Please see list. SOCIAL HISTORY: No illicit drug use FAMILY HISTORY: No reports of Crohn disease or ulcerative colitis. REVIEW OF ORGAN SYSTEMS: CONSTITUTIONAL: No reports of fevers or chills. GI: Denies any blood in stools or constipation. PHYSICAL EXAM: VITAL SIGNS: Stable GENERAL: Well-developed and pleasant in no acute distress. HEENT: No scleral icterus. Extraocular movements grossly intact. Moist buccal mucosa. NECK: Supple without lymphadenopathy. CHEST: Unlabored respirations. Equal bilateral excursions. CARDIOVASCULAR: Regular rate and rhythm. Distal 2+ pulses. ABDOMEN: Soft, nondistended. MUSCULOSKELETAL: No clubbing, cyanosis, or edema. ASSESSMENT: 1. Gastroesophageal reflux disease PLAN: 1. Recommend proceeding with an upper endoscopy Past Medical History Past Medical History: GERD/Reflux, Hyperlipidemia Additional Past Medical History / Comment(s): migraines, received rehydration fluids at hospital 04/09/17 History of Any Multi-Drug Resistant Organisms: None Reported Past Surgical History: Adenoidectomy, Bariatric Surgery, Hysterectomy, Tonsillectomy Additional Past Surgical History / Comment(s): BILATERAL oophorectomy,emergency laparoscopic surgery, egd, colonoscopy and shockwave lithotripsy gastric bypass 02-14-17 Past Anesthesia/Blood Transfusion Reactions: Previous Problems w/ Anesthesia, Postoperative Nausea & Vomiting (PONV) Additional Past Anesthesia/Blood Transfusion Reaction / Comment(s): "was in coma for 4 days after exploratory laparoscopy had very low blood pressure. Prior to surgery,had internal bleeding " Smoking Status: Never smoker - Past Family History Mother Family Medical History: Deep Vein Thrombosis (DVT) Medications and Allergies Home Medications Medication Instructions Recorded Confirmed Type Bariatric Multivitamin 1 tab PO DAILY 04/11/17 04/11/17 History Omeprazole 20 mg PO DAILY 04/11/17 04/11/17 History Allergies Allergy/AdvReac Type Severity Reaction Status Date / Time hydrocodone [From [place]] Allergy Severe Anaphylaxis Verified 04/11/17 14:25 aspirin Allergy asthma Verified 04/11/17 14:25 attack hydromorphone [From Dilaudid] Allergy Dyspnea Verified 04/11/17 14:25 latex Allergy Anaphylaxis Verified 04/11/17 14:25 Sulfa (Sulfonamide Allergy painful Verified 04/11/17 14:25 Antibiotics) rash tamsulosin Allergy Rash/Hives Verified 04/11/17 14:25
[~2017-04-13 09:02] MED LIST changes: +LACTATED RINGERS 1,000 ML IV SCH; -SODIUM CHLORIDE 0.9% 500 ML in EMPTY BAG 1 BAG IV PRN
[2017-04-13 09:43] VITALS: TEMP 98.7
[2017-04-13] MEDS ORDERED: LIDOCAINE 1% 20 ML VIAL (10MG/ML) FOR IV START INTRADERMA ONE (09:49)
[2017-04-13] MEDS ORDERED: ONDANSETRON 4 MG/2 ML VIAL IVP ONE (09:55)
[2017-04-13] MEDS ORDERED: KETAMINE 10 MG/ML 20 ML VIAL ONE (10:20)
[2017-04-13] MEDS ORDERED: GLYCOPYRROLATE 0.2 MG/ML 2 ML VIAL ONE (10:20)
[2017-04-13] MEDS ORDERED: PROPOFOL 10 MG/ML 20 ML VIAL IV ONE (10:20)
[2017-04-13] MEDS ORDERED: LIDOCAINE 1% INJ 10MG/ML (20 ML MDV) ONE (10:20)
[2017-04-13 10:49] VITALS: RESP 18
--- NOTE | 2017-04-13 10:50 | P.PCN ---
Date of Procedure: 04/13/17 Description of Procedure: PREOPERATIVE DIAGNOSIS: Dysphagia. Nausea with vomiting. POSTOPERATIVE DIAGNOSIS: Dysphagia. Nausea with vomiting. Gastrojejunal stricture. OPERATION: Esophagogastrojejunoscopy with balloon dilatation from 8 to 13.5 mm. SURGEON: Michelle Bernardo MD ANESTHESIA: MAC. INDICATIONS: The patient is a 62-year-old female who presents with a history of dysphagia including new-onset nausea and vomiting. Benefits and risks of the procedure were described. Informed consent was obtained. DESCRIPTION: The patient was brought into the endoscopy suite and laid in the left lateral decubitus position. After a timeout was confirmed, the procedure was initiated. An Olympus gastroscope was passed along the posterior oropharynx down to the distal esophagus where the squamocolumnar junction was unremarkable. The gastric pouch was entered. A gastrojejunal stricture of 8 mm was found as the adult gastroscope was 9.5 mm in size. A [employer] balloon dilator was placed through the scope. Final insufflation up to 13.5 mm was performed with a total of 2 minutes. The scope was advanced up to 60 cm from the incisors into the Benedict limb. The mucosa of the gastrojejunal anastomosis was intact. No full-thickness injury was encountered. The GI tract was desufflated. The patient tolerated the procedure well. 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 Successful balloon dilatation to 13.5 mm. Gastric pouch 5 cm. RECOMMENDATIONS: Need repeat upper endoscopy in 2 to 4 weeks. Plan - Discharge Summary New Discharge Prescriptions: No Action Omeprazole 20 mg PO DAILY Bariatric Multivitamin 1 tab PO DAILY Discharge Medication List Bariatric Multivitamin 1 tab PO DAILY 04/11/17 [History] Omeprazole 20 mg PO DAILY 04/11/17 [History]
[2017-04-13 11:21] VITALS: BP 122/67; PULSE 74
== END 2017-04-13 12:28 | disposition home or self-care (01) ==
LOC: ORWHC2ENDO 09:02
PROVIDERS: ATTEND Surgery Plastic and Reconstructive Surgery
DX: K31.89 Other diseases of stomach and duodenum (principal); R13.10 Dysphagia, unspecified; R11.2 Nausea with vomiting, unspecified; K21.9 Gastro-esophageal reflux disease without esophagitis; E78.5 Hyperlipidemia, unspecified; Z98.84 Bariatric surgery status; Z79.899 Other long term (current) drug therapy; Z88.5 Allergy status to narcotic agent; Z88.2 Allergy status to sulfonamides; Z88.8 Allergy status to other drugs, medicaments and biological substances; Z88.6 Allergy status to analgesic agent; Z91.040 Latex allergy status
CPT/HCPCS: 43245; J2405; J2001; J2704; C1726; 43249

== ENCOUNTER → 2017-05-11 | Outpatient (CLI) | payer BC ==
[2017-05-11 14:59] VITALS: BP 124/77; PULSE 65; RESP 16; TEMP 98; BMI 31.8
[2017-05-11 16:30] LABS: Anisocytosis Slight; HCT 40.8 % (34.0-46.0); HGB 13.1 gm/dL (11.4-16.0); MCH 29.3 pg (25.0-35.0); MCV 91.4 fL (80.0-100.0); Mean Platelet Volume 7.6; Platelet Count 295 k/uL (150-450); RBC 4.47 m/uL (3.80-5.40); RDW 16.2 % (11.5-15.5); WBC 7.6 k/uL (3.8-10.6)
[2017-05-11 16:41] LABS: Partial Thromboplastin Time 23.5 sec (22.0-30.0)
[2017-05-11 16:43] LABS: INR 1.1 (<1.2); Prothrombin Time 10.3 sec (9.0-12.0)
[2017-05-11 16:52] LABS: ALT 27 U/L (9-52); AST 15 U/L (14-36); Albumin 4.2 g/dL (3.5-5.0); Alkaline Phosphatase 47 U/L (38-126); Anion Gap 10 mmol/L; Blood Urea Nitrogen 17 mg/dL (7-17); Calcium 9.5 mg/dL (8.4-10.2); Carbon Dioxide 28 mmol/L (22-30); Chloride 104 mmol/L (98-107); Cholesterol 175 mg/dL (<200); Glucose 159 mg/dL (74-99); HDL Cholesterol 49 mg/dL (40-60); LDL Cholesterol,Calculated 87 mg/dL (0-99); Magnesium 2.1 mg/dL (1.6-2.3); Phosphorous 3.9 mg/dL (2.5-4.5); Potassium 3.7 mmol/L (3.5-5.1); Sodium 142 mmol/L (137-145); Total Bilirubin 0.4 mg/dL (0.2-1.3); Total Protein 7.1 g/dL (6.3-8.2); Triglycerides 193 mg/dL (<150)
[2017-05-12 01:11] LABS: Parathyroid Hormone Intact 18.2 pg/mL (14.0-72.0)
[2017-05-12 01:13] LABS: Vitamin D 25 Hydroxy 32.8 ng/mL (30.0-100.0)
[2017-05-12 01:34] LABS: Folate, Serum 22.4 ng/mL; Iron Saturation 15.79 (12.00-45.00)
[2017-05-12 04:34] LABS: Hemoglobin A1C 5.4 % (4.0-6.0)
[2017-05-12 15:31] LABS: Zinc, Serum 61 ug/dL (60-130)
[2017-05-13 05:17] LABS: Vitamin B1 66 ug/L (38-122)
[2017-05-13 06:22] LABS: Vitamin A 38 ug/dL (38-106)
[2017-05-13 17:00] LABS: Selenium 235 mcg/L (63-160)
--- NOTE | 2017-06-22 07:48 | P.PN ---
Subjective Progress Note Date: 05/11/17 DATE: 05/11/2017 CHIEF COMPLAINT: Follow up gastric bypass. HISTORY OF PRESENT ILLNESS: Norman Bain is a 62-year-old female who initially presented to the bariatric center, June 2016. Her initial weight was 206 pounds. Today she comes in weighing 177 pounds. She has lost 9 pounds in 1 month. Her ideal body for her 5-foot, 2-1/2-frame is 135 pounds. She is 42 pounds overweight. Body mass index is 31.9. Lifetime weight loss is 29 pounds. Percent excess weight loss is 41%. She is status post gastric bypass 02/14/2017. She reports eating too fast. No reports of diarrhea. She has constipation. No troubles with eating ground turkey. She is complaining of hair loss. She had previous history of stricture. She is drinking 64 ounces of water daily. She now presents 3 months postop. PHYSICAL EXAM: VITAL SIGNS: 5 feet 2-1/2 inches, 177 pounds. BMI 31.9 Vital Signs Temp 98.0 F 05/11/17 14:56 Pulse 65 05/11/17 14:56 Resp 16 05/11/17 14:56 BP 124/77 05/11/17 14:56 Pulse Ox GENERAL: Well-developed, pleasant female in no acute distress. HEENT: Head is atraumatic, normocephalic. Extraocular movements grossly intact. NECK: Supple without lymphadenopathy. CHEST: Nonlabored respirations with bilateral excursions. CARDIOVASCULAR: Regular rate and rhythm. ABDOMEN: Soft, nontender, nondistended. All incisions granulated. MUSCULOSKELETAL: No clubbing, cyanosis, or edema. NEURO: No focal or lateralizing signs. Cranial nerves II-12. SKIN: Good skin turgor. Well-perfused. LABS: ASSESSMENT: 1. Morbid obesity due to excess calories. 2. Body mass index of 37.2 down to 31.9. 3. Gastroesophageal reflux disease, resolved. 4. Hypertensive heart disease. 5. Metabolic syndrome. 6. Status post gastric bypass. 7. Dietary surveillance and counseling. PLAN: 1. She is 3 months postop. Recommend bariatric panel. 2. She has history of stricture. May need another upper endoscopy. 3. She complains of hair loss. May be secondary to inadequate protein or Selenium toxicity. Laboratory Last Values WBC 7.6 k/uL (3.8-10.6) 05/11/17 16:09 RBC 4.47 m/uL (3.80-5.40) 05/11/17 16:09 Hgb 13.1 gm/dL (11.4-16.0) 05/11/17 16:09 Hct 40.8 % (34.0-46.0) 05/11/17 16:09 MCV 91.4 fL (80.0-100.0) 05/11/17 16:09 MCH 29.3 pg (25.0-35.0) 05/11/17 16:09 MCHC 32.0 g/dL (31.0-37.0) 05/11/17 16:09 RDW 16.2 % (11.5-15.5) H 05/11/17 16:09 Plt Count 295 k/uL (150-450) 05/11/17 16:09 Anisocytosis Slight 05/11/17 16:09 PT 10.3 sec (9.0-12.0) 05/11/17 16:09 INR 1.1 (<1.2) 05/11/17 16:09 APTT 23.5 sec (22.0-30.0) 05/11/17 16:09 Sodium 142 mmol/L (137-145) 05/11/17 16:09 Potassium 3.7 mmol/L (3.5-5.1) 05/11/17 16:09 Chloride 104 mmol/L (98-107) 05/11/17 16:09 Carbon Dioxide 28 mmol/L (22-30) 05/11/17 16:09 Anion Gap 10 mmol/L 05/11/17 16:09 BUN 17 mg/dL (7-17) 05/11/17 16:09 Creatinine 0.82 mg/dL (0.52-1.04) 05/11/17 16:09 Est GFR (MDRD) Af Amer >60 (>60 ml/min/1.73 sqM) 05/11/17 16:09 Est GFR (MDRD) Non-Af >60 (>60 ml/min/1.73 sqM) 05/11/17 16:09 Glucose 159 mg/dL (74-99) H 05/11/17 16:[address] Glu mg/dL 108 05/11/17 16:09 Hemoglobin A1c 5.4 % (4.0-6.0) 05/11/17 16:09 Calcium 9.5 mg/dL (8.4-10.2) 05/11/17 16:09 Phosphorus 3.9 mg/dL (2.5-4.5) 05/11/17 16:09 Magnesium 2.1 mg/dL (1.6-2.3) 05/11/17 16:09 Iron 57 ug/dL (50-170) 05/11/17 16:09 TIBC 361 ug/dL (228-460) 05/11/17 16:09 Iron Saturation 15.79 (12.00-45.00) 05/11/17 16:09 Ferritin 607.6 ng/mL (10.0-291.0) H 05/11/17 16:09 Total Bilirubin 0.4 mg/dL (0.2-1.3) 05/11/17 16:09 AST 15 U/L (14-36) 05/11/17 16:09 ALT 27 U/L (9-52) 05/11/17 16:09 Alkaline Phosphatase 47 U/L (38-126) 05/11/17 16:09 Total Protein 7.1 g/dL (6.3-8.2) 05/11/17 16:09 Albumin 4.2 g/dL (3.5-5.0) 05/11/17 16:09 Prealbumin 15.0 mg/dL (18.0-42.0) L 05/11/17 16:09 Triglycerides 193 mg/dL (<150) H 05/11/17 16:09 Cholesterol 175 mg/dL (<200) 05/11/17 16:09 LDL Cholesterol, Calc 87 mg/dL (0-99) 05/11/17 16:09 HDL Cholesterol 49 mg/dL (40-60) 05/11/17 16:09 Vitamin A 38 ug/dL (38-106) 05/11/17 16:09 Vitamin B1 66 ug/L (38-122) 05/11/17 16:09 Vitamin B12 447.0 pg/mL (200.0-944.0) 05/11/17 16:09 Vitamin D 25-Hydroxy 32.8 ng/mL (30.0-100.0) 05/11/17 16:09 Folate 22.4 ng/mL 05/11/17 16:09 TSH 0.852 mIU/L (0.465-4.680) 05/11/17 16:09 PTH Intact 18.2 pg/mL (14.0-72.0) 05/11/17 16:09 Copper 1237 ug/L (810-1990) 05/11/17 16:09 Selenium 235 mcg/L (63-160) H 05/11/17 16:09 Zinc 61 ug/dL (60-130) 05/11/17 16:09 Prealbumin is low. Triglycerides elevated. Selenium high. Protein intake to increase over 75 g. Recheck lipid panel and fasting. Discontinue selenium sources which causes hair loss. Objective - Vital Signs Vital signs: Vital Signs Temp 98.0 F 05/11/17 14:56 Pulse 65 05/11/17 14:56 Resp 16 05/11/17 14:56 BP 124/77 05/11/17 14:56 Pulse Ox Intake & Output 05/10/17 05/11/17 05/11/17 18:59 06:59 18:59 Weight 80.371 kg - Labs CBC & Chem 7: 05/11/17 16:09 05/11/17 16:09
== END | disposition home or self-care (01) ==
LOC: BARWHC3 14:01
PROVIDERS: ATTEND Surgery Plastic and Reconstructive Surgery
DX: Z09 Encounter for follow-up examination after completed treatment for conditions other than malignant neoplasm (principal); E66.01 Morbid (severe) obesity due to excess calories; I11.9 Hypertensive heart disease without heart failure; E88.81 Metabolic syndrome and other insulin resistance; Z71.3 Dietary counseling and surveillance; E21.1 Secondary hyperparathyroidism, not elsewhere classified; D50.8 Other iron deficiency anemias; E89.1 Postprocedural hypoinsulinemia; K90.89 Other intestinal malabsorption; E55.9 Vitamin D deficiency, unspecified; K76.9 Liver disease, unspecified; N19 Unspecified kidney failure; K50.90 Crohn's disease, unspecified, without complications; Z68.31 Body mass index [BMI] 31.0-31.9, adult; Z98.84 Bariatric surgery status
CPT/HCPCS: 36415; 80053; 80061; 82306; 82525; 82607; 82728; 82746; 83036; 83540; 83550; 83735; 83970; 84100; 84134; 84255; 84425; 84443; 84590; 84630; 85027; 85610; 85730; 97803; 99211

== ENCOUNTER → 2017-06-15 | Outpatient (CLI) | payer BC ==
[2017-06-15 16:48] VITALS: BP 141/77; PULSE 76; RESP 16; TEMP 99.2; BMI 31.7
--- NOTE | 2017-08-06 17:16 | P.PN ---
Subjective Progress Note Date: 06/15/17 DATE: 06/15/2017 CHIEF COMPLAINT: Follow up gastric bypass. HISTORY OF PRESENT ILLNESS: Norman Bain is a 62-year-old female who initially presented to the bariatric center, June 2016. Her initial weight was 206 pounds. Today she comes in weighing 176 pounds. She has lost 1 pound in 1 month. Her ideal body for her 5-foot, 2-1/2-frame is 135 pounds. Body mass index is 31.7. Lifetime weight loss is 30 pounds. Percent excess weight loss is 42%. She is status post gastric bypass 02/14/2017. She completed a upper endoscopy with balloon and reports resolution of her epigastric abdominal pain including intermittent dysphagia. She comes in with hair loss including trouble with her memory. She reports intermittent discomfort along the umbilicus. Now she presents for follow-up. PHYSICAL EXAM: VITAL SIGNS: 5 feet 2-1/2 inches, 176 pounds. BMI 31.7 Vital Signs Temp 99.2 F 06/15/17 16:44 Pulse 76 06/15/17 16:44 Resp 16 06/15/17 16:44 BP 141/77 06/15/17 16:44 Pulse Ox GENERAL: Well-developed, pleasant female in no acute distress. HEENT: Head is atraumatic, normocephalic. Extraocular movements grossly intact. NECK: Supple without lymphadenopathy. CHEST: Nonlabored respirations with bilateral excursions. CARDIOVASCULAR: Regular rate and rhythm. ABDOMEN: Soft, nontender, nondistended. No palpable incisional hernias along bariatric sites. MUSCULOSKELETAL: No clubbing, cyanosis, or edema. NEURO: No focal or lateralizing signs. Cranial nerves II-12. SKIN: Good skin turgor. Well-perfused. LABS: WBC 7.6 k/uL (3.8-10.6) 05/11/17 16:09 RBC 4.47 m/uL (3.80-5.40) 05/11/17 16:09 Hgb 13.1 gm/dL (11.4-16.0) 05/11/17 16:09 Hct 40.8 % (34.0-46.0) 05/11/17 16:09 MCV 91.4 fL (80.0-100.0) 05/11/17 16:09 MCH 29.3 pg (25.0-35.0) 05/11/17 16:09 MCHC 32.0 g/dL (31.0-37.0) 05/11/17 16:09 RDW 16.2 % (11.5-15.5) H 05/11/17 16:09 Plt Count 295 k/uL (150-450) 05/11/17 16:09 Anisocytosis Slight 05/11/17 16:09 PT 10.3 sec (9.0-12.0) 05/11/17 16:09 INR 1.1 (<1.2) 05/11/17 16:09 APTT 23.5 sec (22.0-30.0) 05/11/17 16:09 Sodium 142 mmol/L (137-145) 05/11/17 16:09 Potassium 3.7 mmol/L (3.5-5.1) 05/11/17 16:09 Chloride 104 mmol/L (98-107) 05/11/17 16:09 Carbon Dioxide 28 mmol/L (22-30) 05/11/17 16:09 Anion Gap 10 mmol/L 05/11/17 16:09 BUN 17 mg/dL (7-17) 05/11/17 16:09 Creatinine 0.82 mg/dL (0.52-1.04) 05/11/17 16:09 Est GFR (MDRD) Af Amer >60 (>60 ml/min/1.73 sqM) 05/11/17 16:09 Est GFR (MDRD) Non-Af >60 (>60 ml/min/1.73 sqM) 05/11/17 16:09 Glucose 159 mg/dL (74-99) H 05/11/17 16:[address] Glu mg/dL 108 05/11/17 16:09 Hemoglobin A1c 5.4 % (4.0-6.0) 05/11/17 16:09 Calcium 9.5 mg/dL (8.4-10.2) 05/11/17 16:09 Phosphorus 3.9 mg/dL (2.5-4.5) 05/11/17 16:09 Magnesium 2.1 mg/dL (1.6-2.3) 05/11/17 16:09 Iron 57 ug/dL (50-170) 05/11/17 16:09 TIBC 361 ug/dL (228-460) 05/11/17 16:09 Iron Saturation 15.79 (12.00-45.00) 05/11/17 16:09 Ferritin 607.6 ng/mL (10.0-291.0) H 05/11/17 16:09 Total Bilirubin 0.4 mg/dL (0.2-1.3) 05/11/17 16:09 AST 15 U/L (14-36) 05/11/17 16:09 ALT 27 U/L (9-52) 05/11/17 16:09 Alkaline Phosphatase 47 U/L (38-126) 05/11/17 16:09 Total Protein 7.1 g/dL (6.3-8.2) 05/11/17 16:09 Albumin 4.2 g/dL (3.5-5.0) 05/11/17 16:09 Prealbumin 15.0 mg/dL (18.0-42.0) L 05/11/17 16:09 Triglycerides 193 mg/dL (<150) H 05/11/17 16:09 Cholesterol 175 mg/dL (<200) 05/11/17 16:09 LDL Cholesterol, Calc 87 mg/dL (0-99) 05/11/17 16:09 HDL Cholesterol 49 mg/dL (40-60) 05/11/17 16:09 Vitamin A 38 ug/dL (38-106) 05/11/17 16:09 Vitamin B1 66 ug/L (38-122) 05/11/17 16:09 Vitamin B12 447.0 pg/mL (200.0-944.0) 05/11/17 16:09 Vitamin D 25-Hydroxy 32.8 ng/mL (30.0-100.0) 05/11/17 16:09 Folate 22.4 ng/mL 05/11/17 16:09 TSH 0.852 mIU/L (0.465-4.680) 05/11/17 16:09 PTH Intact 18.2 pg/mL (14.0-72.0) 05/11/17 16:09 Copper 1237 ug/L (810-1990) 05/11/17 16:09 Selenium 235 mcg/L (63-160) H 05/11/17 16:09 Zinc 61 ug/dL (60-130) 05/11/17 16:09 Prealbumin is low. Selenium high. ASSESSMENT: 1. Morbid obesity due to excess calories. 2. Body mass index of 37.2 down to 31.7. 3. Gastroesophageal reflux disease, resolved. 4. Hypertensive heart disease. 5. Metabolic syndrome. 6. Status post gastric bypass. 7. Gastrojejunal stricture. 8. Selenium toxicity. PLAN: 1. Review of labs, her prealbumin slow consistent with inadequate protein intake. 2. Additionally, selenium is in excess. On review of her multivitamins, selenium excess was identified which causes hair loss. Discontinue additional selenium exposure. 3. Upper endoscopy as needed. 4. Follow-up at the bariatric Center 3 months otherwise September 2017. 5. Recommend increased protein intake over 75 g daily. 6. May discontinue omeprazole. Objective - Vital Signs Vital signs: Vital Signs Temp 99.2 F 06/15/17 16:44 Pulse 76 06/15/17 16:44 Resp 16 06/15/17 16:44 BP 141/77 06/15/17 16:44 Pulse Ox Intake & Output 06/14/17 06/15/17 06/15/17 18:59 06:59 18:59 Weight 79.974 kg
== END | disposition home or self-care (01) ==
LOC: BARWHC3 15:22
PROVIDERS: ATTEND Surgery Plastic and Reconstructive Surgery
DX: Z09 Encounter for follow-up examination after completed treatment for conditions other than malignant neoplasm (principal); E66.01 Morbid (severe) obesity due to excess calories; I11.9 Hypertensive heart disease without heart failure; K91.89 Other postprocedural complications and disorders of digestive system; T65.91XD Toxic effect of unspecified substance, accidental (unintentional), subsequent encounter; Z68.31 Body mass index [BMI] 31.0-31.9, adult; Z98.84 Bariatric surgery status
CPT/HCPCS: 99211

== ENCOUNTER → 2017-09-02 | Outpatient (CLI) | payer BC ==
[2017-09-02 13:03] LABS: HCT 40.8 % (34.0-46.0); HGB 13.9 gm/dL (11.4-16.0); MCH 31.3 pg (25.0-35.0); MCV 92.1 fL (80.0-100.0); Mean Platelet Volume 6.8; Platelet Count 292 k/uL (150-450); RBC 4.43 m/uL (3.80-5.40); RDW 13.4 % (11.5-15.5); WBC 6.8 k/uL (3.8-10.6)
[2017-09-02 13:10] LABS: Partial Thromboplastin Time 22.9 sec (22.0-30.0); Prothrombin Time 10.2 sec (9.0-12.0)
[2017-09-02 13:15] LABS: ALT 20 U/L (9-52); AST 18 U/L (14-36); Albumin 4.1 g/dL (3.5-5.0); Alkaline Phosphatase 51 U/L (38-126); Anion Gap 12 mmol/L; Blood Urea Nitrogen 20 mg/dL (7-17); Calcium 9.6 mg/dL (8.4-10.2); Carbon Dioxide 29 mmol/L (22-30); Chloride 105 mmol/L (98-107); Cholesterol 192 mg/dL (<200); Glucose 114 mg/dL (74-99); HDL Cholesterol 54 mg/dL (40-60); LDL Cholesterol,Calculated 100 mg/dL (0-99); Magnesium 2.1 mg/dL (1.6-2.3); Phosphorus 4.9 mg/dL (2.5-4.5); Potassium 4.1 mmol/L (3.5-5.1); Sodium 146 mmol/L (137-145); Total Bilirubin 0.5 mg/dL (0.2-1.3); Total Protein 6.9 g/dL (6.3-8.2); Triglycerides 191 mg/dL (<150)
[2017-09-02 18:39] LABS: Iron Saturation 16.76 (12.00-45.00)
[2017-09-02 18:46] LABS: Vitamin D 25 Hydroxy 24.6 ng/mL (30.0-100.0)
[2017-09-02 18:48] LABS: Folate, Serum >24.0 ng/mL
[2017-09-02 20:42] LABS: Parathyroid Hormone Intact 25.2 pg/mL (14.0-72.0)
[2017-09-02 21:52] LABS: Hemoglobin A1C 5.4 % (4.0-6.0)
[2017-09-05 16:09] LABS: Zinc, Serum 73 ug/dL (60-130)
[2017-09-06 05:34] LABS: Vitamin B1 59 ug/L (38-122)
[2017-09-06 06:20] LABS: Vitamin A 41 ug/dL (38-106)
== END | disposition home or self-care (01) ==
LOC: LABWHC1 11:58
PROVIDERS: ATTEND Surgery Plastic and Reconstructive Surgery
DX: E66.01 Morbid (severe) obesity due to excess calories (principal); E22.1 Hyperprolactinemia; E89.1 Postprocedural hypoinsulinemia; D50.9 Iron deficiency anemia, unspecified; E44.0 Moderate protein-calorie malnutrition; E55.9 Vitamin D deficiency, unspecified; K74.1 Hepatic sclerosis; N19 Unspecified kidney failure; K50.90 Crohn's disease, unspecified, without complications
CPT/HCPCS: 36415; 80053; 80061; 82306; 82525; 82607; 82728; 82746; 83036; 83540; 83550; 83735; 83970; 84100; 84134; 84255; 84425; 84443; 84590; 84630; 85027; 85610; 85730

== ENCOUNTER → 2017-09-15 | Outpatient (CLI) | payer BC ==
[2017-09-15 08:48] VITALS: BP 107/77; PULSE 75; TEMP 97.7; BMI 31.7
== END | disposition home or self-care (01) ==
LOC: BARWHC3 08:24
PROVIDERS: ATTEND Surgery Plastic and Reconstructive Surgery
DX: E66.01 Morbid (severe) obesity due to excess calories (principal); Z68.31 Body mass index [BMI] 31.0-31.9, adult; Z71.3 Dietary counseling and surveillance
CPT/HCPCS: 97803; 99211

== ENCOUNTER → 2017-09-23 | Outpatient (CLI) | payer BC ==
--- NOTE | 2017-09-23 14:57 | US ---
EXAMINATION TYPE: US carotid duplex BILAT DATE OF EXAM: 09/23/2017 COMPARISON: NONE CLINICAL HISTORY: R09.89 Carotid Bruit G45.9 TIA; patient stated had selenium toxicity, left lip quiv er, forgetfulness; patient unsure which side carotid bruit was heard EXAM MEASUREMENTS: RIGHT: Peak Systolic Velocity (PSV) cm/sec ----- Right CCA: 103.1 ----- Right ICA: 98.7 ----- Right ECA: 74.5 ICA/CCA ratio: 1.0 RIGHT: End Diastole cm/sec ----- Right CCA: 31.5 ----- Right ICA: 16.1 ----- Right ECA: 11.7 LEFT: Peak Systolic Velocity (PSV) cm/sec ----- Left CCA: 66.4 ----- Left ICA: 100.5 ----- Left ECA: 63.4 ICA/CCA ratio: 1.5 LEFT: End Diastole cm/sec ----- Left CCA: 21.0 ----- Left ICA: 42.4 ----- Left ECA: 10.1 VERTEBRALS (direction of flow): Right Vertebral: Antegrade Left Vertebral: Antegrade Rhythm: Normal Grayscale images show no significant focal plaque at carotid bulb level bilaterally. Incidental finding of left thyroid nodules seen with larger nodule = 1.2 x 1.2 x 1.0cm. IMPRESSION: No hemodynamically significant stenosis is seen in either internal carotid artery. Incid ental 1.2 cm hypoechoic solid left thyroid nodule. Advise complete thyroid ultrasound follow-up to fu rther evaluate and characterize entire thyroid gland.
== END ==
LOC: RADUSWWP 12:50
PROVIDERS: ATTEND Surgery Plastic and Reconstructive Surgery
DX: R09.89 Other specified symptoms and signs involving the circulatory and respiratory systems (principal); G45.9 Transient cerebral ischemic attack, unspecified; E04.1 Nontoxic single thyroid nodule
CPT/HCPCS: 93880

== ENCOUNTER → 2017-10-20 | Outpatient (CLI) | payer BC ==
--- NOTE | 2017-10-20 11:11 | US ---
EXAMINATION TYPE: US thyroid st tissue head/neck DATE OF EXAM: 10/20/2017 COMPARISON: Chest CT November 09, 2010. Carotid ultrasound September 23, 2017. CLINICAL HISTORY: E04.1 Thyroid Nodule, Left. Patient scheduled for thyroid biopsy next week. Patient complains of memory loss, hair loss, and fatigue. Left thyroid nodule seen on carotid ultrasound. GLAND SIZE: Right Lobe: 4.0 x 1.2 x 1.1 cm Overall Parenchyma: homogenous Left Lobe: 4.8 x 1.3 x 1.1 cm Overall Parenchyma: homogeneous Isthmus Thickness: 0.2 cm NODULES RIGHT: # of nodules measured on right: 2 1. 0.5 X 0.4 x 0.3 cm hypoechoic solid nodule at the mid pole with well-defined margins; . This no dule is wider than tall and shows intranodular vascularity. Prior size: No previous 2. 0.4 X 0.4 x 2.8 cm hypoechoic solid nodule at the lower pole with well-defined margins; . This n odule is wider than tall and shows intranodular vascularity. Prior size: No previous LEFT: # of nodules measured on left: 2 1. 0.7 X 0.7 x 0.6 cm hypoechoic solid nodule at the mid pole with well-defined margins; . This no dule is wider than tall and shows intranodular vascularity. Prior size: No previous 2. 1.4 X 1.1 x 1.1 cm hypoechoic solid nodule at the lower pole with well-defined margins . This no dule is taller than wide and shows intranodular vascularity. Prior size:No previous ISTHMUS: # of nodules measured in the isthmus: 0 There is overall somewhat small size thyroid that is fairly homogeneous in appearance with scattered small nodules. There is a dominant 1.4 x 1.1 x 1.1 cm well-defined oval slightly hypoechoic hypervasc ular solid nodule lower pole level left thyroid. IMPRESSION: A 1.4 cm left thyroid nodule noted. TR 5-- total points 7. Highly suspicious. FNA is advised.
== END | disposition home or self-care (01) ==
LOC: RADUSWWP 09:37
PROVIDERS: ATTEND Surgery Plastic and Reconstructive Surgery
DX: E04.1 Nontoxic single thyroid nodule (principal); Z88.2 Allergy status to sulfonamides; Z88.5 Allergy status to narcotic agent; Z88.6 Allergy status to analgesic agent; Z91.040 Latex allergy status
CPT/HCPCS: 76536

== ENCOUNTER 2017-10-27 12:13 | Day surgery (SDC) | payer BC ==
[2017-10-27 13:10] VITALS: BP 120/70; PULSE 80; RESP 16; TEMP 97.5
--- NOTE | 2017-10-27 14:05 | US ---
EXAMINATION TYPE: US FNA thyroid DATE OF EXAM: 10/27/2017 COMPARISON: Ultrasound thyroid 10/20/2017 HISTORY: Thyroid nodule left lower pole. Maximal barrier technique was utilized. After informed consent, skin overlying the lesion was locali zed with ultrasound and the overlying skin prepped and draped. Ultrasound was utilized using sterile technique. Lidocaine was used for local anesthesia. Five passes with a 25-gauge needle were made int o the nodule and aspirated specimen was submitted to cytology. Following the procedure hemostasis ac hieved. No immediate complication. The patient discharged in stable condition. IMPRESSION: STATUS POST ULTRASOUND GUIDED FINE NEEDLE ASPIRATION OF THYROID NODULE, PATHOLOGY IS PEND ING. THIS PROCEDURE WAS PERFORMED BY THE UNDERSIGNED.
== END 2017-10-27 14:00 | disposition home or self-care (01) ==
LOC: RADPROMAIN 12:13
PROVIDERS: ATTEND Surgery Plastic and Reconstructive Surgery
DX: E04.1 Nontoxic single thyroid nodule (principal)
CPT/HCPCS: 10022; 76942; 88173; 88305

== ENCOUNTER → 2018-01-04 | Outpatient (CLI) | payer BC ==
[2018-01-04 14:46] VITALS: BP 132/66; PULSE 71; RESP 16; TEMP 97.9; BMI 31.1
--- NOTE | 2018-01-04 14:48 | P.PN ---
Subjective Progress Note Date: 01/04/18 HPI: She reports improved GERD. No nausea or vomiting. Her protein intake is adequate. Her hair is growing back. Her memory is NECK: No thyroid nodule. ABDOMEN: Soft non-tender. PLAN: 1. Recommend labs. 2. Change of MVI from 50+ to women's only. 3. She is feeling better. 4. Follow up in 1 year.
== END | disposition home or self-care (01) ==
LOC: BARWHC3 13:04
PROVIDERS: ATTEND Surgery Plastic and Reconstructive Surgery
DX: E66.01 Morbid (severe) obesity due to excess calories (principal); K21.9 Gastro-esophageal reflux disease without esophagitis; E21.1 Secondary hyperparathyroidism, not elsewhere classified; E89.1 Postprocedural hypoinsulinemia; D50.9 Iron deficiency anemia, unspecified; K90.9 Intestinal malabsorption, unspecified; E55.9 Vitamin D deficiency, unspecified; K74.1 Hepatic sclerosis; N19 Unspecified kidney failure; K50.90 Crohn's disease, unspecified, without complications; Z68.31 Body mass index [BMI] 31.0-31.9, adult
CPT/HCPCS: 97803; 99211

== ENCOUNTER → 2018-02-10 | Outpatient (CLI) | payer BC ==
[2018-02-10 16:50] LABS: HCT 40.9 % (34.0-46.0); HGB 13.2 gm/dL (11.4-16.0); MCH 30.7 pg (25.0-35.0); MCHC 32.3 g/dL (31.0-37.0); MCV 95.1 fL (80.0-100.0); Mean Platelet Volume 6.5; Platelet Count 279 k/uL (150-450); RDW 13.6 % (11.5-15.5); WBC 10.6 k/uL (3.8-10.6)
[2018-02-10 16:59] LABS: Partial Thromboplastin Time 23.5 sec (22.0-30.0)
[2018-02-10 17:08] LABS: Albumin 4.1 g/dL (3.5-5.0); Magnesium 2.1 mg/dL (1.6-2.3); Phosphorus 4.7 mg/dL (2.5-4.5); Total Bilirubin 0.5 mg/dL (0.2-1.3); Total Protein 6.8 g/dL (6.3-8.2)
[2018-02-11 02:23] LABS: Iron Saturation 11.68 (12.00-45.00)
[2018-02-11 02:27] LABS: Parathyroid Hormone Intact 62.3 pg/mL (14.0-72.0)
[2018-02-11 02:32] LABS: Folate, Serum 18.3 ng/mL; Vitamin D 25 Hydroxy 22.3 ng/mL (30.0-100.0)
[2018-02-11 04:41] LABS: Hemoglobin A1C 5.7 % (4.0-6.0)
[2018-02-14 08:02] LABS: Vitamin A 39 ug/dL (38-106)
[2018-02-14 08:14] LABS: Vitamin B1 79 ug/L (38-122)
[2018-02-14 09:14] LABS: Zinc, Serum 68 ug/dL (60-130)
[2018-02-14 18:26] LABS: Selenium 111 mcg/L (63-160)
== END | disposition home or self-care (01) ==
LOC: LABWHC1 16:03
PROVIDERS: ATTEND Surgery Plastic and Reconstructive Surgery
DX: E21.1 Secondary hyperparathyroidism, not elsewhere classified (principal); E89.1 Postprocedural hypoinsulinemia; D50.9 Iron deficiency anemia, unspecified; K90.9 Intestinal malabsorption, unspecified; E55.9 Vitamin D deficiency, unspecified; K74.1 Hepatic sclerosis; N19 Unspecified kidney failure; K50.90 Crohn's disease, unspecified, without complications
CPT/HCPCS: 36415; 80053; 80061; 82306; 82525; 82607; 82728; 82746; 83036; 83540; 83550; 83735; 83970; 84100; 84134; 84255; 84425; 84443; 84590; 84630; 85027; 85610; 85730

== ENCOUNTER → 2018-02-15 | Outpatient (CLI) | payer BC ==
[2018-02-15 13:57] VITALS: BP 121/68; PULSE 75; RESP 14; TEMP 98.5; BMI 30.8
--- NOTE | 2018-02-15 14:41 | P.PN ---
Subjective Progress Note Date: 02/15/18 DATE: 02/15/2018 CHIEF COMPLAINT: Follow up gastric bypass. HISTORY OF PRESENT ILLNESS: Norman Bain is a 63-year-old female who is status post gastric bypass 02/14/2017. She is 1 year out. No further asthma. No gastroesophageal reflux disease. She feels great 1 year out. No more hair loss. She reports occassional fatigue. Her initial weight was 206 pounds. Today she comes in weighing 171 pounds from 173 pounds 1 month ago. She has lost 2 pounds in 1 month. Her ideal body for her 5-foot, 2-/2-frame is 135 pounds. Body mass index is reduced from 37.2 to 30.8. Lifetime weight loss is 35 pounds. Percent excess weight loss is 49 %. PAST MEDICAL HISTORY: 1. Osteoarthritis. 2. Gastroesophageal reflux disease. 3. History of hiatal hernia. 4. Obstructive sleep apnea. 5. Osteoarthritis of diffuse joints. 6. Kidney stones. 7. Morbid obesity, BMI initial 37.2 PAST SURGICAL HISTORY: 1. Upper endoscopy. 2. Adenoidectomy. 3. Hysterectomy. 4. Tonsillectomy. 5. Bilateral laparoscopic oophorectomy. 6. Colonoscopy. 7. History of lithotripsy. 8. EGD. 9. Cystoscopy. 10. Severe postoperative nausea and vomiting. MEDICATIONS: 1. Omeprazole. 2. Motrin. ALLERGIES: 1. ASPIRIN. 2. LATEX. 3. PENICILLIN. 4. SULFA. 5. FLOMAX. 5. DILAUDID. SOCIAL HISTORY: Lifelong nontobacco user. She is . FAMILY HISTORY: Denies any esophageal or stomach cancer. REVIEW OF SYSTEMS: CONSTITUTIONAL: Her initial weight was 206 pounds. Today she comes in weighing 173 pounds from 174 pounds 4 months ago. She has lost 1 pounds in 4 months. Her ideal body for her 5-foot, 2-1/2-frame is 135 pounds. Body mass index is reduced from 37.2 to 31.1. Lifetime weight loss is 33 pounds. Percent excess weight loss is 47 %. HEENT: No reports of trouble with vision, hearing or dysphagia. ENDOCRINE: No diabetes. No previous thyroid disorder. LYMPHATICS: No reports of lumps or bumps around the neck. RESPIRATORY: Has obstructive sleep apnea, resolved. No reports of dyspnea on exertion. CARDIOVASCULAR: No recent chest pain, heart attack. GASTROINTESTINAL: No dumping syndrome. MUSCULOSKELETAL: Diffuse osteoarthritis where she takes Motrin, improved. GENITONURINARY: History of kidney stones with blood in urine. NEURO: No reports of stroke or seizure disorder. PSYCH: No reports of depression or suicidal ideation. SKIN: No skin cancer. No recent rash. PHYSICAL EXAM: VITAL SIGNS: 5 feet 2-1/2 inches, 171 pounds. BMI 30.8 Vital Signs Temp 98.5 F 02/15/18 13:52 Pulse 75 02/15/18 13:52 Resp 14 02/15/18 13:52 BP 121/68 02/15/18 13:52 Pulse Ox GENERAL: Well-developed, pleasant female in no acute distress. HEENT: Head is atraumatic, normocephalic. Extraocular movements grossly intact. NECK: Supple without lymphadenopathy. No large discrete thyroid nodule. CHEST: Nonlabored respirations with bilateral excursions. CARDIOVASCULAR: Regular rate and rhythm. ABDOMEN: Soft, nontender, nondistended. No palpable incisional hernias along bariatric sites. MUSCULOSKELETAL: No clubbing, cyanosis, or edema. NEURO: No focal or lateralizing signs. Cranial nerves II-12. SKIN: Good skin turgor. Well-perfused. ASSESSMENT: 1. Morbid obesity due to excess calories. 2. Body mass index of 37.2 down to 31.2. 3. Gastroesophageal reflux disease, resolved. 4. Hypertensive heart disease, improved. 5. Metabolic syndrome. 6. Status post gastric bypass. 7. Gastrojejunal stricture. 8. Dysphagia. 9. Vitamin D deficiency 10. Panniculitis. 11. Thyroid nodule 12. Iron deficiency anemia PLAN: 1. Labs reviewed. 2. Follow-up yearly. 3. Iron infusion for iron deficiency anemia 4. Change MVI to Alive ultrapotency Objective - Vital Signs Vital signs: Vital Signs Temp 98.5 F 02/15/18 13:52 Pulse 75 02/15/18 13:52 Resp 14 02/15/18 13:52 BP 121/68 02/15/18 13:52 Pulse Ox Intake & Output 02/14/18 02/15/18 02/15/18 18:59 06:59 18:59 Weight 77.746 kg
== END | disposition home or self-care (01) ==
LOC: BARWHC3 13:21
PROVIDERS: ATTEND Surgery Plastic and Reconstructive Surgery
DX: Z09 Encounter for follow-up examination after completed treatment for conditions other than malignant neoplasm (principal); R63.4 Abnormal weight loss; E66.01 Morbid (severe) obesity due to excess calories; I11.9 Hypertensive heart disease without heart failure; E88.81 Metabolic syndrome and other insulin resistance; K56.699 Other intestinal obstruction unspecified as to partial versus complete obstruction; R13.10 Dysphagia, unspecified; E55.9 Vitamin D deficiency, unspecified; M79.3 Panniculitis, unspecified; E04.1 Nontoxic single thyroid nodule; D50.9 Iron deficiency anemia, unspecified; M19.90 Unspecified osteoarthritis, unspecified site; G47.33 Obstructive sleep apnea (adult) (pediatric); Z87.442 Personal history of urinary calculi; Z90.710 Acquired absence of both cervix and uterus; Z90.89 Acquired absence of other organs; Z98.890 Other specified postprocedural states; Z79.1 Long term (current) use of non-steroidal anti-inflammatories (NSAID); Z79.899 Other long term (current) drug therapy; Z98.84 Bariatric surgery status; Z68.30 Body mass index [BMI] 30.0-30.9, adult; Z88.2 Allergy status to sulfonamides; Z88.0 Allergy status to penicillin; Z88.8 Allergy status to other drugs, medicaments and biological substances; Z87.891 Personal history of nicotine dependence
CPT/HCPCS: 97803; 99211

== ENCOUNTER → 2018-03-16 | Outpatient (CLI) | payer BC ==
--- NOTE | 2018-03-17 07:46 | MM ---
Reason for exam: screening (asymptomatic). Last mammogram was performed 11 years and 7 months ago. History: Patient is postmenopausal. Taking estrogen for 9 years beginning at age 41. Physical Findings: A clinical breast exam by your physician is recommended on an annual basis and results should be correlated with mammographic findings. MG 3D Screening Mammo W/Cad Bilateral CC and MLO view(s) were taken. Prior study comparison: May 08, 2015, mammogram, performed at [facility]. April 10, 2014, mammogram, performed at [facility]. There are scattered fibroglandular densities. There is no discrete abnormality. ASSESSMENT: Negative, BI-RAD 1 RECOMMENDATION: Routine screening mammogram of both breasts in 1 year.
== END ==
LOC: RADMAMWWP 07:10
PROVIDERS: ATTEND Obstetrics & Gynecology
DX: Z12.31 Encounter for screening mammogram for malignant neoplasm of breast (principal)
CPT/HCPCS: 77063; 77067

== ENCOUNTER → 2018-06-07 | Outpatient (CLI) | payer BC ==
[2018-06-07 13:56] LABS: HGB 13.9 gm/dL (11.4-16.0); MCH 32.1 pg (25.0-35.0); MCHC 33.9 g/dL (31.0-37.0); MCV 94.7 fL (80.0-100.0); Mean Platelet Volume 7.1; Platelet Count 294 k/uL (150-450); RBC 4.33 m/uL (3.80-5.40); RDW 13.4 % (11.5-15.5); WBC 7.6 k/uL (3.8-10.6)
[2018-06-07 14:18] LABS: INR 0.9 (<1.2); Partial Thromboplastin Time 23.1 sec (22.0-30.0); Prothrombin Time 9.8 sec (9.0-12.0)
[2018-06-07 19:08] LABS: Iron Saturation 20.58 (12.00-45.00)
[2018-06-07 19:18] LABS: Vitamin D 25 Hydroxy 19.4 ng/mL (30.0-100.0)
[2018-06-07 19:24] LABS: ALT 16 U/L (8-44); AST 17 U/L (13-35); Albumin/Globulin Ratio 2.47 (1.20-2.10); Alkaline Phosphatase 63 U/L (41-126); Calcium 8.7 mg/dL (8.7-10.3); Carbon Dioxide 28.1 mmol/L (21.6-31.8); Chloride 107 mmol/L (96-109); Cholesterol 210 mg/dL (0-200); Folate, Serum >24.0 ng/mL; Globulin 1.7 g/dL (1.6-3.3); Glucose 87 mg/dL (70-110); Magnesium 1.9 mg/dL (1.5-2.4); Phosphorus 4.5 mg/dL (2.4-5.1); Potassium 4.3 mmol/L (3.5-5.5); Sodium 140 mmol/L (135-145); Total Bilirubin 0.3 mg/dL (0.3-1.2); Total Protein 5.9 g/dL (6.2-8.2)
[2018-06-07 20:41] LABS: Parathyroid Hormone Intact 38.5 pg/mL (14.0-72.0)
[2018-06-07 21:26] LABS: Hemoglobin A1C 5.7 % (4.0-6.0)
[2018-06-08 15:18] LABS: Vitamin A 41 ug/dL (38-106)
[2018-06-08 15:25] LABS: Zinc, Serum 58 ug/dL (60-130)
[2018-06-09 05:35] LABS: Vitamin B1 79 ug/L (38-122)
== END | disposition home or self-care (01) ==
LOC: LABWHC1 12:37
PROVIDERS: ATTEND Surgery Plastic and Reconstructive Surgery
DX: E21.1 Secondary hyperparathyroidism, not elsewhere classified (principal); E89.1 Postprocedural hypoinsulinemia; D50.9 Iron deficiency anemia, unspecified; E44.0 Moderate protein-calorie malnutrition; E55.9 Vitamin D deficiency, unspecified; K74.1 Hepatic sclerosis; N19 Unspecified kidney failure; K50.90 Crohn's disease, unspecified, without complications
CPT/HCPCS: 36415; 80053; 80061; 82306; 82525; 82607; 82728; 82746; 83036; 83540; 83550; 83721; 83735; 83970; 84100; 84134; 84255; 84425; 84443; 84590; 84630; 85027; 85610; 85730

== ENCOUNTER → 2018-06-14 | Outpatient (CLI) | payer BC ==
--- NOTE | 2018-06-14 17:02 | P.PN ---
Subjective Progress Note Date: 06/14/18 HPI: She has history of many high risk polyps. She had over 3 cm polyp. She has change in bowel habit and lower abdominal pain. ABDOMEN: Mild tenderness along the lower abdomen PLAN: 1. Recommend getting colonoscopy immediately 2. Get CT scan of the abdomen/pelvis diverticulitis
[2018-06-16 15:11] VITALS: BP 138/84; PULSE 76; TEMP 98.2; BMI 31.4
== END | disposition home or self-care (01) ==
LOC: BARWHC3 15:28
PROVIDERS: ATTEND Surgery Plastic and Reconstructive Surgery
DX: R10.30 Lower abdominal pain, unspecified (principal); R19.4 Change in bowel habit; R10.819 Abdominal tenderness, unspecified site
CPT/HCPCS: 99211

== ENCOUNTER 2018-06-21 08:39 | Day surgery (SDC) | payer BC ==
[2018-06-20 08:16] VITALS: BMI 31.2
--- NOTE | 2018-06-21 06:52 | P.GSHP ---
History of Present Illness H&P Date: 06/21/18 CHIEF COMPLAINT: Colon screen HISTORY OF PRESENT ILLNESS: The patient is a 63-year-old female who presents for colon screen. Lower endoscopy was offered for further evaluation and management. PAST MEDICAL HISTORY: Please see list. PAST SURGICAL HISTORY: Please see list. MEDICATIONS: Please see list. ALLERGIES: Please see list. SOCIAL HISTORY: No illicit drug use FAMILY HISTORY: No reports of Crohn disease or ulcerative colitis. REVIEW OF ORGAN SYSTEMS: CONSTITUTIONAL: No reports of fevers or chills. PHYSICAL EXAM: VITAL SIGNS: Stable GENERAL: Well-developed pleasant in no acute distress. HEENT: No scleral icterus. Extraocular movements grossly intact. Moist buccal mucosa. NECK: Supple without lymphadenopathy. CHEST: Unlabored respirations. Equal bilateral excursions. CARDIOVASCULAR: Regular rate and rhythm. Distal 2+ pulses. ABDOMEN: Soft, nontender, nondistended. MUSCULOSKELETAL: No clubbing, cyanosis, or edema. ASSESSMENT: 1. Colon screen. PLAN: 1. Recommend proceeding with a lower endoscopy Past Medical History Past Medical History: GERD/Reflux, Hyperlipidemia Additional Past Medical History / Comment(s): migraines, chronic kidney stones ( have required lithotripsy), UTI's, Uterine Prolapse (Not requiring surgery as of 06/14/18); Possible Ocular Migraines (Opthamologist looking into this as of June 2018) History of Any Multi-Drug Resistant Organisms: None Reported Past Surgical History: Adenoidectomy, Bariatric Surgery, Hysterectomy, Tonsillectomy Additional Past Surgical History / Comment(s): BILATERAL oophorectomy,emergency laproscopic surgery, egd, colonoscopy, shockwave lithotripsy, gastric bypass 04-22 (Dr. Michelle Bernardo) Past Anesthesia/Blood Transfusion Reactions: Previous Problems w/ Anesthesia, Postoperative Nausea & Vomiting (PONV) Additional Past Anesthesia/Blood Transfusion Reaction / Comment(s): "was in coma for 4 days after exploratory laproscopy had very low blood pressure. Prior to surgery,had internal bleeding " Smoking Status: Never smoker - Past Family History Mother Family Medical History: Deep Vein Thrombosis (DVT) Medications and Allergies Home Medications Medication Instructions Recorded Confirmed Type No Known Home Medications 06/20/18 06/20/18 History Allergies Allergy/AdvReac Type Severity Reaction Status Date / Time hydrocodone [From [place]] Allergy Severe Anaphylaxis Verified 06/20/18 08:12 aspirin Allergy asthma Verified 06/20/18 08:12 attack hydromorphone [From Dilaudid] Allergy Dyspnea Verified 06/20/18 08:12 latex Allergy Anaphylaxis Verified 06/20/18 08:12 Sulfa (Sulfonamide Allergy painful Verified 06/20/18 08:12 Antibiotics) rash tamsulosin Allergy Rash/Hives Verified 06/20/18 08:12
[~2018-06-21 08:39] MED LIST changes: -LACTATED RINGERS 1,000 ML IV SCH; +LIDOCAINE 1% 20 ML VIAL (10MG/ML) FOR IV START INTRADERMA PRN
[2018-06-21 09:16] VITALS: TEMP 98.6
[2018-06-21] MEDS: LACTATED RINGERS 1,000 ML IV SCH ×2 (09:25→09:27)
[2018-06-21] MEDS ORDERED: LIDOCAINE 1% INJ 10MG/ML (20 ML MDV) ONE (09:28)
[2018-06-21] MEDS ORDERED: PROPOFOL 10 MG/ML 20 ML VIAL IV ONE (09:28)
--- NOTE | 2018-06-21 09:47 | P.PCN ---
Date of Procedure: 06/21/18 Description of Procedure: PREOPERATIVE DIAGNOSIS: Personal history of colon polyps, high risk adenoma High-risk colonoscopy screening POSTOPERATIVE DIAGNOSIS: Personal history of colon polyps, high risk adenoma High-risk colonoscopy screening Ascending colon polyp Sigmoid diverticulosis OPERATION: Colonoscopy to the ileocecal valve and appendiceal orifice. Colonoscopy with cold forceps biopsy SURGEON: Michelle Bernardo MD. ANESTHESIA: MAC. INDICATIONS: The patient is a 63-year-old female who presents for colonoscopy screening. Last colonoscopy performed within 5 years. Extremely large colon polyp was removed for high risk adenoma. Benefits and risks were described and informed consent was obtained. DESCRIPTION OF PROCEDURE: The patient had undergone Gatorade, MiraLAX and Dulcolax prep. She had been brought into the operating room and laid in the left lateral decubitus position. After adequate intravenous sedation, the rectum was examined with 2% lidocaine jelly. No external hemorrhoids were encountered. The rectal tone was within normal limits. No lesions were palpated in the rectal vault. An Olympus colonoscope was advanced until the ileocecal valve and appendiceal orifice were clearly viewed. The prep was fair with visualization of the mucosal folds. The scope was removed with visualization of each mucosal fold. Sigmoid diverticulosis was encountered. Ascending colon polyp, 3 mm was cold forcep biopsy. No evidence of focal colitis was found. Retroflexion of the scope demonstrated no internal hemorrhoids. The colon was desufflated. The patient had tolerated the procedure well. Withdrawal time was over 6 minutes. FINDINGS: No internal hemorrhoids No external hemorrhoids No arteriovenous malformations Sigmoid diverticulosis Removal of 1 polyp: - Cold forceps biopsy at ascending colon, 3 mm polyp. No focal colitis. RECOMMENDATIONS: Repeat colonoscopy in 5 years, 2023 Plan - Discharge Summary New Discharge Prescriptions: No Action No Known Home Medications Discharge Medication List No Known Home Medications 06/20/18 [History]
[2018-06-21 10:17] VITALS: BP 102/65; PULSE 70; RESP 18
== END 2018-06-21 10:44 | disposition home or self-care (01) ==
LOC: ORWHC2ENDO 08:39
PROVIDERS: ATTEND Surgery Plastic and Reconstructive Surgery
DX: Z12.11 Encounter for screening for malignant neoplasm of colon (principal); K63.5 Polyp of colon; K57.30 Diverticulosis of large intestine without perforation or abscess without bleeding; K21.0 Gastro-esophageal reflux disease with esophagitis; E78.5 Hyperlipidemia, unspecified; G47.33 Obstructive sleep apnea (adult) (pediatric); E66.9 Obesity, unspecified; Z68.31 Body mass index [BMI] 31.0-31.9, adult; Z98.84 Bariatric surgery status; Z87.440 Personal history of urinary (tract) infections; Z87.442 Personal history of urinary calculi; Z86.010 Personal history of colon polyps; Z88.5 Allergy status to narcotic agent; Z88.2 Allergy status to sulfonamides; Z88.6 Allergy status to analgesic agent; Z88.8 Allergy status to other drugs, medicaments and biological substances; Z91.040 Latex allergy status
CPT/HCPCS: 88305; 45380; J2001; J2704

== ENCOUNTER → 2019-02-07 | Outpatient (CLI) | payer BC ==
[2019-02-07 09:49] LABS: HGB 13.2 gm/dL (11.4-16.0); MCH 30.6 pg (25.0-35.0); MCHC 33.1 g/dL (31.0-37.0); MCV 92.4 fL (80.0-100.0); Mean Platelet Volume 7.1; Platelet Count 270 k/uL (150-450); RBC 4.33 m/uL (3.80-5.40); RDW 13.3 % (11.5-15.5)
[2019-02-07 10:02] LABS: INR 0.9 (<1.2); Partial Thromboplastin Time 24.4 sec (22.0-30.0); Prothrombin Time 10.1 sec (9.0-12.0)
[2019-02-07 17:06] LABS: African American GFR (CKD) 90.9 (60.0-200.0); Albumin 4.2 g/dL (3.80-4.90); Albumin/Globulin Ratio 2.21 (1.60-3.17); Anion Gap 8.7 mmol/L (4.00-12.00); Carbon Dioxide 27.3 mmol/L (21.6-31.8); Chol/HDL Ratio 3.45; Globulin 1.9 g/dL (1.6-3.3); LDL Cholesterol,Calculated 87.2 mg/dL (0.0-131.0); Phosphorus 4.2 mg/dL (2.4-5.1); Total Bilirubin 0.4 mg/dL (0.3-1.2); Total Protein 6.1 g/dL (6.2-8.2); VLDL Calculation 54.8 mg/dL (5.00-40.00)
[2019-02-07 17:07] LABS: Iron Saturation 25.93 (12.00-45.00)
[2019-02-07 17:15] LABS: Vitamin D 25 Hydroxy 16.5 ng/mL (30.0-100.0)
[2019-02-07 17:41] LABS: Folate, Serum 10.4 ng/mL
[2019-02-07 18:04] LABS: Hemoglobin A1C 5.6 % (4.0-6.0)
[2019-02-08 14:01] LABS: Zinc, Serum 71 ug/dL (60-130)
[2019-02-09 06:56] LABS: Vitamin A 51 ug/dL (38-106)
== END | disposition home or self-care (01) ==
LOC: LABWHC1 08:40
PROVIDERS: ATTEND Surgery Plastic and Reconstructive Surgery
DX: E21.1 Secondary hyperparathyroidism, not elsewhere classified (principal); E89.1 Postprocedural hypoinsulinemia; K90.9 Intestinal malabsorption, unspecified; E55.9 Vitamin D deficiency, unspecified; K74.1 Hepatic sclerosis; N19 Unspecified kidney failure; K50.90 Crohn's disease, unspecified, without complications; E66.01 Morbid (severe) obesity due to excess calories
CPT/HCPCS: 36415; 80053; 80061; 82306; 82525; 82607; 82728; 82746; 83036; 83540; 83550; 83735; 83970; 84100; 84134; 84255; 84425; 84443; 84590; 84630; 85027; 85610; 85730

== ENCOUNTER → 2019-02-28 | Outpatient (CLI) | payer BC ==
[2019-02-28 13:17] VITALS: BP 113/76; PULSE 76; TEMP 98.1; BMI 31.8
--- NOTE | 2019-02-28 14:03 | P.PN ---
Subjective Progress Note Date: 02/28/19 DATE: 02/28/19 No further GERD. Her weight is stable for the last 2 years. She is looking into panniculitis. She has redness along her pannus. She uses [employer] for some relief but not consistently helps. She has occassional pain and pulling from her pannus. She has difficulty with getting clothes because of her pannus. ABDOMEN: Redness of pannus. Weight over 5 pounds. ASSESSMENT: 1. Panniculitis PLAN: 1. Nystatin pannus over 6 months 2. Food diary journal 3. Labs reviewed with iron is normal 4. Follow up yearly 5. Vitamin D supplement DATE: 06/14/2018 CHIEF COMPLAINT: Follow up gastric bypass. HISTORY OF PRESENT ILLNESS: Norman Bain is a 63-year-old female who is status post gastric bypass 02/14/2017. She is 1 year out. She has history of many high risk polyps. She had over 3 cm polyp removed. She has change in bowel habit and lower abdominal pain for over 1 month. Her initial weight was 206 pounds. Today she comes in weighing 174 pound from 171 pounds, 4 months ago. She has gained 3 pounds in 4 months. Her ideal body for her 5-foot, 2-1/2-frame is 135 pounds. Body mass index is reduced from 37.2 to 31.4. Lifetime weight loss is 32 pounds. Percent excess weight loss is 45 %. PHYSICAL EXAM: VITAL SIGNS: 5 feet 2-1/2 inches, 174 pounds. BMI 31.4 GENERAL: Well-developed, pleasant female in no acute distress. HEENT: Head is atraumatic, normocephalic. Extraocular movements grossly intact. NECK: Supple without lymphadenopathy. No large discrete thyroid nodule. CHEST: Nonlabored respirations with bilateral excursions. CARDIOVASCULAR: Regular rate and rhythm. ABDOMEN: Soft, nondistended. MUSCULOSKELETAL: No clubbing, cyanosis, or edema. NEURO: No focal or lateralizing signs. Cranial nerves II-12. SKIN: Good skin turgor. Well-perfused. LABS: Reviewed with triglycerides over 500+ ASSESSMENT: 1. Morbid obesity due to excess calories. 2. Body mass index of 37.2 down to 31.4. 3. Gastroesophageal reflux disease, resolved. 4. Hypertensive heart disease, improved. 5. Metabolic syndrome. 6. Status post gastric bypass. 7. Gastrojejunal stricture. 8. Dysphagia. 9. Vitamin D deficiency 10. Panniculitis. 11. Thyroid nodule 12. Iron deficiency anemia, resolved PLAN: 1. Recommend colonoscopy for history of colon polyps and family history of colon cancer and she is higher risk. 2. Recommend CT scan of the abdomen/pelvis for diverticulitis Objective - Vital Signs Vital signs: Vital Signs Temp 98.1 F 02/28/19 13:11 Pulse 76 02/28/19 13:11 Resp BP 113/76 02/28/19 13:11 Pulse Ox Intake & Output 02/27/19 02/28/19 02/28/19 18:59 06:59 18:59 Weight 80.286 kg
== END ==
LOC: BARWHC3 12:36
PROVIDERS: ATTEND Surgery Plastic and Reconstructive Surgery
DX: M79.3 Panniculitis, unspecified (principal); E65 Localized adiposity; E66.01 Morbid (severe) obesity due to excess calories; I11.9 Hypertensive heart disease without heart failure; E88.81 Metabolic syndrome and other insulin resistance; E55.9 Vitamin D deficiency, unspecified; E04.1 Nontoxic single thyroid nodule; K56.699 Other intestinal obstruction unspecified as to partial versus complete obstruction; R13.10 Dysphagia, unspecified; Z98.84 Bariatric surgery status; Z68.31 Body mass index [BMI] 31.0-31.9, adult
CPT/HCPCS: 99211

== ENCOUNTER → 2019-05-01 | Outpatient (CLI) | payer BC ==
--- NOTE | 2019-05-02 13:24 | MM ---
Reason for exam: screening (asymptomatic). Last mammogram was performed 1 year and 1 month ago. History: Patient is postmenopausal. Took hormonal contraceptives for 5 years. Taking estrogen for 9 years beginning at age 41. Physical Findings: A clinical breast exam by your physician is recommended on an annual basis and results should be correlated with mammographic findings. MG Screening Mammo w CAD Bilateral CC and MLO view(s) were taken. Prior study comparison: March 16, 2018, bilateral MG 3d screening mammo w/cad. May 08, 2015, mammogram, performed at [facility]. There are scattered fibroglandular densities. No significant changes when compared with prior studies. ASSESSMENT: Benign, BI-RAD 2 RECOMMENDATION: Routine screening mammogram of both breasts in 1 year.
== END | disposition home or self-care (01) ==
LOC: RADMAMWWP 10:13
PROVIDERS: ATTEND Obstetrics & Gynecology
DX: Z12.31 Encounter for screening mammogram for malignant neoplasm of breast (principal)
CPT/HCPCS: 77067

== ENCOUNTER → 2019-07-24 | Outpatient (CLI) | payer BC ==
--- NOTE | 2019-07-24 09:55 | CT ---
EXAMINATION TYPE: CT iac w con, CT sinus wo/w con DATE OF EXAM: 07/24/2019 COMPARISON: None HISTORY: Hearing loss, FARFAN, pressure in ears CT DLP: 1274.9 (sinus and IAC) (accession [id number]), 1274.9 (accession [id number]) mGycm Automated exposure control for dose reduction was used. CONTRAST: CT scan of the IACs and sinuses is performed with IV Contrast (accession [id number]), without and with IV Contrast (accession [id number]), patient injected with 100 mL of Isovue 300. FINDINGS: The external auditory canals are patent bilaterally. Mastoid air cells show no evidence of abnormal opacification bilaterally. The middle ear ossicles are symmetric and unremarkable. There is no evidence of suspicious surrounding soft tissue density to suggest cholesteatoma. The scutum is preserved bilaterally. The cochlea and the semicircular canals are symmetric and unremarkable. Ves tibular aqueduct and internal carotid canal appear unremarkable. Temporomandibular joints are mainta ined bilaterally. Paranasal sinuses show no air-fluid levels. Farrukh cells are present bilaterally. Ostiomeatal units a re patent. Minimal mucoperiosteal thickening present in the maxillary sinus on the right and left, de viated nasal septum noted towards the left IMPRESSION: Mild sinus disease.
== END | disposition home or self-care (01) ==
LOC: RADCTMAIN 06:45
PROVIDERS: ATTEND Family Medicine
DX: J32.9 Chronic sinusitis, unspecified (principal); H90.A22 Sensorineural hearing loss, unilateral, left ear, with restricted hearing on the contralateral side
CPT/HCPCS: 70481; 70488; Q9967

== ENCOUNTER → 2020-02-13 | Outpatient (CLI) | payer BC ==
[2020-02-13 11:37] LABS: HGB 13.7 gm/dL (11.4-16.0); MCH 29.7 pg (25.0-35.0); Mean Platelet Volume 7.1; Platelet Count 281 k/uL (150-450); RBC 4.62 m/uL (3.80-5.40); RDW 13.4 % (11.5-15.5)
[2020-02-13 17:09] LABS: INR 0.96 (0.90-1.11); Partial Thromboplastin Time 25.8 sec (24.7-29.9); Prothrombin Time 10.3 sec (9.9-11.9)
[2020-02-13 18:09] LABS: % Iron Saturation 15.34 (12.00-45.00); African American GFR (CKD) 90.3 (60.0-200.0); Albumin 4.2 g/dL (3.80-4.90); Albumin/Globulin Ratio 2.1 (1.60-3.17); Anion Gap 7.1 mmol/L (4.00-12.00); BUN/Creat Ratio 26.25 Ratio (12.00-20.00); Calcium 9.2 mg/dL (8.7-10.3); Carbon Dioxide 25.9 mmol/L (21.6-31.8); Chol/HDL Ratio 3.74; LDL Cholesterol,Calculated 93.6 mg/dL (0.0-131.0); Non-African American GFR(CKD) 77.9 (60.0-200.0); Potassium 4.1 mmol/L (3.5-5.5); Total Bilirubin 0.4 mg/dL (0.3-1.2); Total Protein 6.2 g/dL (6.2-8.2); VLDL Calculation 54.4 mg/dL (5.00-40.00)
[2020-02-13 18:20] LABS: Folate, Serum 9.8 ng/mL
[2020-02-13 18:53] LABS: Ferritin 360.8 ng/mL (10.0-291.0)
[2020-02-13 22:12] LABS: Hemoglobin A1C 5.7 % (4.0-6.0)
[2020-02-14 13:15] LABS: Zinc, Serum 53 ug/dL (60-130)
== END | disposition home or self-care (01) ==
LOC: LABWHC1 10:26
PROVIDERS: ATTEND Surgery Plastic and Reconstructive Surgery
DX: K90.89 Other intestinal malabsorption (principal); E55.9 Vitamin D deficiency, unspecified; K74.1 Hepatic sclerosis; N19 Unspecified kidney failure; K50.90 Crohn's disease, unspecified, without complications; D50.8 Other iron deficiency anemias; E89.1 Postprocedural hypoinsulinemia
CPT/HCPCS: 36415; 80053; 80061; 82306; 82525; 82607; 82728; 82746; 83036; 83540; 83550; 83735; 83970; 84100; 84134; 84255; 84425; 84443; 84590; 84630; 85027; 85610; 85730

== ENCOUNTER → 2020-03-06 | Outpatient (CLI) | payer BC ==
--- NOTE | 2020-03-06 09:06 | FL ---
ESOPHOGRAM. HISTORY: Dysphagia Esophagram was performed per the single contrast technique. The patient swallowed barium without dif ficulty or delay. Esophageal peristalsis and motility appear to be within normal limits. There is no evidence for filling defect, mass or diverticulum. Small reducible sliding type hiatal hernia noted. Noted are changes of prior gastric bypass with Benedict-en-Y. No evidence for obstruction or leak. No dil ated bowel. Contrast is noted within proximal small bowel without difficulty or delay. IMPRESSION: 1. Small sliding-type hiatal hernia.
== END | disposition home or self-care (01) ==
LOC: RADUSWWP 07:53
PROVIDERS: ATTEND Surgery Plastic and Reconstructive Surgery
DX: K44.9 Diaphragmatic hernia without obstruction or gangrene (principal)
CPT/HCPCS: 74220

== ENCOUNTER → 2020-03-17 | Outpatient (CLI) | payer BC ==
--- NOTE | 2020-03-17 09:11 | NM ---
Nuclear medicine hepatobiliary scan. HISTORY: Pain. DOSAGE: The patient received 8 ounces of ensure plus and 4.8 mCi of Technetium 99m Choletec. FINDINGS: There is normal hepatic extraction. The gallbladder is seen by 20 minutes. There is bilia ry to bowel clearance by 20 minutes. Ejection fraction is 1%. IMPRESSION: 1. Abnormal ejection fraction of 1% correlate for biliary dyskinesia.
== END | disposition home or self-care (01) ==
LOC: RADNMMAIN 07:00
PROVIDERS: ATTEND Surgery Plastic and Reconstructive Surgery
DX: R93.2 Abnormal findings on diagnostic imaging of liver and biliary tract (principal); R10.11 Right upper quadrant pain; R10.13 Epigastric pain
CPT/HCPCS: 78226; A9537

== ENCOUNTER → 2020-03-18 | Outpatient (CLI) | payer BC ==
--- NOTE | 2020-03-18 07:35 | US ---
EXAMINATION TYPE: US gallbladder DATE OF EXAM: 03/18/2020 COMPARISON: NONE CLINICAL HISTORY: R10.11 RUQ ABD PAIN. right clavicle pain, h.o gastric bypass, HIDA scan yesterday EXAM MEASUREMENTS: Liver Length: 14.7 cm Gallbladder Wall: 0.1 cm CBD: 0.4 cm Right Kidney: 10.4 x 3.9 x 4.4 cm Pancreas: wnl Liver: wnl Gallbladder: 1.7cm stretch of dependant stones seen, no wall thickening Evidence for sonographic Suárez's sign: no CBD: wnl Right Kidney: wnl IMPRESSION: Uncomplicated cholelithiasis.
== END | disposition home or self-care (01) ==
LOC: RADUSWWP 07:00
PROVIDERS: ATTEND Surgery Plastic and Reconstructive Surgery
DX: K80.20 Calculus of gallbladder without cholecystitis without obstruction (principal)
CPT/HCPCS: 76705

== ENCOUNTER → 2020-04-09 | Outpatient (CLI) | payer BC ==
[2020-04-09 14:23] VITALS: BP 136/76; PULSE 66; RESP 16; TEMP 98.3; BMI 32.5
--- NOTE | 2020-04-09 15:36 | P.PN ---
Subjective Progress Note Date: 04/09/20 DATE: 04/09/2020 CHIEF COMPLAINT: Status gastric bypass HISTORY OF PRESENT ILLNESS: Norman Bain is a 65-year-old female who is status post gastric bypass 02/14/2017. She is 3 years out. She comes in with weight gain and right upper quadrant abdominal pain. She has fatty food intolerance. She has gastroesophageal reflux disease. Her initial weight was 206 pounds. Today she comes in weighing 181 pounds from 178 pounds, 2 months ago. She has gained 3 pounds in 2 months. Her ideal body for her 5-foot, 2-2-frame is 135 pounds. Body mass index is reduced from 37.2 to 32.6. Lifetime weight loss is 25 pounds. Percent excess weight loss is 36 %. PAST MEDICAL HISTORY: 1. Osteoarthritis. 2. Gastroesophageal reflux disease. 3. History of hiatal hernia. 4. Obstructive sleep apnea. 5. Osteoarthritis of diffuse joints. 6. Kidney stones. 7. Morbid obesity, BMI initial 37.2 PAST SURGICAL HISTORY: 1. Upper endoscopy. 2. Adenoidectomy. 3. Hysterectomy. 4. Tonsillectomy. 5. Bilateral laparoscopic oophorectomy. 6. Colonoscopy. 7. History of lithotripsy. 8. EGD. 9. Cystoscopy. 10. Severe postoperative nausea and vomiting. MEDICATIONS: Home Medications Medication Instructions Recorded Confirmed Ergocalciferol [Vitamin D2 50,000 unit PO FR 02/28/19 05/07/20 (DRISDOL)] Mv-Mn/Folic AC/Calcium/Vit K1 1 each PO DAILY 04/25/20 05/07/20 [Women 50 Plus Multivit Adv Tab] Zinc 50 mg PO DAILY 04/25/20 05/07/20 Previous Rx's Medication Instructions Recorded Acetaminophen [Tylenol] 650 mg PO Q4H PRN #30 tab 05/05/20 Gabapentin [Neurontin] 300 mg PO TID #9 cap 05/05/20 Simethicone [Gas-X] 125 mg PO AC-TID PRN #20 capsule 05/05/20 ALLERGIES: 1. ASPIRIN. 2. LATEX. 3. PENICILLIN. 4. SULFA. 5. FLOMAX. 5. DILAUDID. SOCIAL HISTORY: Lifelong nontobacco user. She is . FAMILY HISTORY: Denies any esophageal or stomach cancer. REVIEW OF SYSTEMS: CONSTITUTIONAL: Her initial weight was 206 pounds. Her ideal body for her 5- foot, 2-1/2-frame is 135 pounds. Body mass index is reduced from 37.2. HEENT: No reports of trouble with vision, hearing or dysphagia. ENDOCRINE: No diabetes. No previous thyroid disorder. LYMPHATICS: No reports of lumps or bumps around the neck. RESPIRATORY: Has obstructive sleep apnea, resolved. No reports of dyspnea on exertion. CARDIOVASCULAR: No recent chest pain, heart attack. GASTROINTESTINAL: No dumping syndrome. MUSCULOSKELETAL: Diffuse osteoarthritis where she takes Motrin, improved. GENITONURINARY: History of kidney stones with blood in urine. NEURO: No reports of stroke or seizure disorder. PSYCH: No reports of depression or suicidal ideation. SKIN: No skin cancer. No recent rash. PHYSICAL EXAM: VITAL SIGNS: 5 feet 2-1/2 inches, 181 pounds. BMI 32.6 Vital Signs Temp 98.3 F 04/09/20 14:21 Pulse 66 04/09/20 14:21 Resp 16 04/09/20 14:21 BP 136/76 04/09/20 14:21 Pulse Ox GENERAL: Well-developed, pleasant female in no acute distress. HEENT: Head is atraumatic, normocephalic. Extraocular movements grossly intact. NECK: Supple without lymphadenopathy. No large discrete thyroid nodule. CHEST: Nonlabored respirations with bilateral excursions. CARDIOVASCULAR: Regular rate and rhythm. ABDOMEN: Soft, nondistended. MUSCULOSKELETAL: No clubbing, cyanosis, or edema. NEURO: No focal or lateralizing signs. Cranial nerves II-12. SKIN: Good skin turgor. Well-perfused. LABS: Reviewed. Cholesterol is elevated. Vitamin D is low. Zinc is low. Iron is low. STUDIES: Barium swallow independently reviewed with hiatal hernia. HIDA scan independently reviewed with ejection fraction 1%. US gallbladder independently reviewed with gallstones ASSESSMENT: 1. Morbid obesity due to excess calories. 2. Body mass index of 37.2 down to 32.6 3. Gastroesophageal reflux disease, resolved. 4. Hypertensive heart disease, improved. 5. Metabolic syndrome. 6. Status post gastric bypass. 7. Gastrojejunal stricture. 8. Dysphagia. 9. Vitamin D deficiency 10. Panniculitis. 11. Thyroid nodule 12. Iron deficiency anemia 13. Hiatal hernia 14. Gallstones PLAN: 1. She has gallstones and gallbladder dysfunction. Recommend cholecystectomy. 2. Vitamin D supplement 5000 units daily described. 3. Zinc supplement 50 mg daily. 4. Recommend iron supplement. 1. Objective - Vital Signs Vital signs: Vital Signs Temp 98.3 F 04/09/20 14:21 Pulse 66 04/09/20 14:21 Resp 16 04/09/20 14:21 BP 136/76 04/09/20 14:21 Pulse Ox Intake & Output 04/08/20 04/09/20 04/09/20 18:59 06:59 18:59 Weight 82.1 kg
== END | disposition home or self-care (01) ==
LOC: BARWHC3 13:55
PROVIDERS: ATTEND Surgery Plastic and Reconstructive Surgery
DX: Z48.815 Encounter for surgical aftercare following surgery on the digestive system (principal); E66.01 Morbid (severe) obesity due to excess calories; I11.9 Hypertensive heart disease without heart failure; E88.81 Metabolic syndrome and other insulin resistance; K56.699 Other intestinal obstruction unspecified as to partial versus complete obstruction; K31.89 Other diseases of stomach and duodenum; R13.10 Dysphagia, unspecified; E55.9 Vitamin D deficiency, unspecified; M79.3 Panniculitis, unspecified; E04.1 Nontoxic single thyroid nodule; D50.9 Iron deficiency anemia, unspecified; K44.9 Diaphragmatic hernia without obstruction or gangrene; K80.80 Other cholelithiasis without obstruction; Z91.040 Latex allergy status; Z88.0 Allergy status to penicillin; Z88.6 Allergy status to analgesic agent; Z88.2 Allergy status to sulfonamides; Z98.84 Bariatric surgery status; Z68.32 Body mass index [BMI] 32.0-32.9, adult; Z79.1 Long term (current) use of non-steroidal anti-inflammatories (NSAID); Z79.899 Other long term (current) drug therapy
CPT/HCPCS: 99211

== ENCOUNTER → 2020-04-17 | Outpatient (CLI) | payer BC ==
[2020-04-17 10:14] LABS: Basophils # (A) 0.1 k/uL (0-0.2); Basophils % (A) 1 %; Eosinophils # (A) 0.1 k/uL (0-0.7); Eosinophils % (A) 2 %; HCT 44.1 % (34.0-46.0); HGB 14.2 gm/dL (11.4-16.0); Lymphocytes # (A) 1.1 k/uL (1.0-4.8); Lymphocytes % (A) 17 %; MCH 30.4 pg (25.0-35.0); MCHC 32.2 g/dL (31.0-37.0); MCV 94.2 fL (80.0-100.0); Mean Platelet Volume 7.3; Monocytes # (A) 0.4 k/uL (0-1.0); Monocytes % (A) 6 %; Neutrophils # (A) 4.8 k/uL (1.3-7.7); Neutrophils % (A) 72 %; Platelet Count 263 k/uL (150-450); RBC 4.69 m/uL (3.80-5.40); RDW 13.4 % (11.5-15.5); WBC 6.6 k/uL (3.8-10.6)
[2020-04-17 11:37] LABS: Albumin 3.9 g/dL (3.5-5.0); Calcium 8.8 mg/dL (8.4-10.2); Potassium 4.3 mmol/L (3.5-5.1); Total Bilirubin 0.5 mg/dL (0.2-1.3); Total Protein 6.6 g/dL (6.3-8.2)
== END | disposition home or self-care (01) ==
LOC: LABPAT 08:45
PROVIDERS: ATTEND Surgery Plastic and Reconstructive Surgery
DX: Z01.818 Encounter for other preprocedural examination (principal)
CPT/HCPCS: 36415; 80053; 85025; 93005

== ENCOUNTER 2020-05-05 06:14 | Day surgery (SDC) | payer BC ==
[2020-04-25 08:58] VITALS: BMI 32.0
[~2020-05-05 06:14] MED LIST changes: -LIDOCAINE 1% 20 ML VIAL (10MG/ML) FOR IV START INTRADERMA PRN; +ONDANSETRON 4 MG/2 ML VIAL IVP ONE; +fentaNYL (PF) 50 MCG/ML 2 ML AMP IV PRN
[2020-05-05] MEDS ORDERED: GABAPENTIN 300 MG CAP PO STA (06:28)
[2020-05-05] MEDS ORDERED: ACETAMINOPHEN TAB 500 MG TAB PO STA (06:28)
[2020-05-05] MEDS ORDERED: HEPARIN SODIUM,PORCINE 5,000 UNIT/ML 1 ML VIAL SQ PRN (06:40)
--- NOTE | 2020-05-05 06:44 | P.GSHP ---
History of Present Illness H&P Date: 05/05/20 CHIEF COMPLAINT: Cholecystitis HISTORY OF PRESENT ILLNESS: The patient is a 65-year-old female who presents with history of epigastric including right upper quadrant abdominal pain. She underwent diagnostic studies for her gallbladder. Separately her clinical picture was consistent with cholecystitis. Now she presents for surgical intervention. PAST MEDICAL HISTORY: Please see list PAST SURGICAL HISTORY: Please see list MEDICATIONS: Please see list ALLERGIES: Please see list SOCIAL HISTORY: Please see list FAMILY HISTORY: Please see list REVIEW OF ORGAN SYSTEMS: CONSTITUTIONAL: No reports of fevers or chills. PHYSICAL EXAM: VITAL SIGNS: Afebrile vital signs stable GENERAL: Well-developed pleasant in no acute distress. HEENT: No scleral icterus. Extraocular movements grossly intact. Moist buccal mucosa. NECK: Supple without lymphadenopathy. CHEST: Unlabored respirations. Equal bilateral excursions. CARDIOVASCULAR: Regular rate regular rhythm rhythm. Distal 2+ pulses. ABDOMEN: Soft, nondistended. Tender along the epigastrium and right upper quadrant. MUSCULOSKELETAL: No clubbing, cyanosis, or edema. NEURO: Cranial nerves II to XII within normal limits. No focal or lateralizing signs. PSYCH: Alert and oriented to person, place and time. SKIN: Well-perfused good skin turgor. ASSESSMENT: 1. Epigastric and right upper quadrant abdominal pain 2. Chronic cholecystitis 3. Symptomatic gallstones. PLAN: 1. Will need a robotic cholecystectomy possible open. Benefits and risks were described. 2. Heparin for DVT prophylaxis 5000 units. 3. Antibiotic prophylaxis. Past Medical History Past Medical History: GERD/Reflux, Hyperlipidemia Additional Past Medical History / Comment(s): migraines, chronic kidney stones (have required lithotripsy), UTI's, Uterine Prolapse (Not requiring surgery as of 06/14/18); chronic sinus infections, tinnitus History of Any Multi-Drug Resistant Organisms: None Reported Past Surgical History: Adenoidectomy, Bariatric Surgery, Hysterectomy, Tonsillectomy Additional Past Surgical History / Comment(s): BILATERAL oophorectomy,emergency laproscopic surgery, egd, colonoscopy, shockwave lithotripsy, gastric bypass 02-14-17 (Dr. Michelle Bernardo) Past Anesthesia/Blood Transfusion Reactions: Previous Problems w/ Anesthesia, Postoperative Nausea & Vomiting (PONV) Additional Past Anesthesia/Blood Transfusion Reaction / Comment(s): "was in coma for 4 days after exploratory laproscopy had very low blood pressure. Prior to surgery,had internal bleeding " Smoking Status: Never smoker - Past Family History Mother Family Medical History: Deep Vein Thrombosis (DVT) Medications and Allergies Home Medications Medication Instructions Recorded Confirmed Type Ergocalciferol [Vitamin D2 50,000 unit PO FR 02/28/19 04/25/20 History (DRISDOL)] Mv-Mn/Folic AC/Calcium/Vit K1 1 each PO DAILY 04/25/20 04/25/20 History [Women 50 Plus Multivit Adv Tab] Zinc 50 mg PO DAILY 04/25/20 04/25/20 History Allergies Allergy/AdvReac Type Severity Reaction Status Date / Time hydrocodone [From [place]] Allergy Severe Anaphylaxis Verified 04/25/20 08:45 aspirin Allergy asthma Verified 04/25/20 08:45 attack hydromorphone [From Dilaudid] Allergy Dyspnea Verified 04/25/20 08:45 latex Allergy Anaphylaxis Verified 04/25/20 08:45 Sulfa (Sulfonamide Allergy painful Verified 04/25/20 08:45 Antibiotics) rash tamsulosin Allergy Rash/Hives Verified 04/25/20 08:45
[2020-05-05] MEDS ORDERED: INDOCYANINE GREEN 25 MG VIAL IV ONE ×2 (07:00→07:28)
[2020-05-05] MEDS ORDERED: LIDOCAINE 1% (10MG/ML) FOR IV START INTRADERMA ONE (07:01)
[2020-05-05] MEDS: DEXAMETHASONE SOD PHOSPHATE 4 MG/ML 1 ML VIAL IV PRN ×2 (07:02→10:49)
[2020-05-05] MEDS ORDERED: MIDAZOLAM 2 MG/2 ML VIAL IV ONE (07:08)
[2020-05-05] MEDS: LACTATED RINGERS 1,000 ML IV SCH ×2 (07:12→12:42)
[2020-05-05 07:15] VITALS: TEMP 99
[2020-05-05] MEDS ORDERED: ROCURONIUM 10 MG/ML (10 ML VIAL) IV ONE (07:28)
[2020-05-05] MEDS ORDERED: PHENYLEPHRINE-0.9% NACL SYG 1 MG/10 ML SYRINGE ONE (07:28)
[2020-05-05] MEDS ORDERED: LIDOCAINE 1% INJ 10MG/ML (20 ML MDV) ONE (07:28)
[2020-05-05] MEDS ORDERED: GLYCOPYRROLATE 0.2 MG/ML 2 ML VIAL ONE (07:28)
[2020-05-05] MEDS ORDERED: SUCCINYLCHOLINE CHLORIDE 100 MG/5 ML SYR IV ONE (07:28)
[2020-05-05] MEDS ORDERED: fentaNYL (PF) 50 MCG/ML 2 ML AMP ONE (07:28)
[2020-05-05] MEDS ORDERED: NEOSTIGMINE 1 MG/ML 10 ML VIAL ONE (07:28)
[2020-05-05] MEDS ORDERED: MIDAZOLAM 2 MG/2 ML VIAL ONE (07:28)
[2020-05-05] MEDS ORDERED: PROPOFOL 10 MG/ML 20 ML VIAL IV ONE (07:28)
[2020-05-05] MEDS ORDERED: BUPIVACAINE (PF) 0.25% 30 ML VIAL SQ ONE (07:31)
[2020-05-05] MEDS ORDERED: LACTATED RINGERS 1,000 ML IV ONE (08:23)
[2020-05-05 08:50] VITALS: RESP 16
[2020-05-05] MEDS ORDERED: SIMETHICONE 80 MG CHEWABLE PO SCH (09:15)
--- NOTE | 2020-05-05 09:32 | P.OP ---
Date of Procedure: 05/05/20 Description of Procedure: SURGEON: KIM LEVY MD PREOPERATIVE DIAGNOSES: 1. Symptomatic gallstone 2. Right upper quadrant abdominal pain POSTOPERATIVE DIAGNOSES: 1. Symptomatic gallstone 2. Right upper quadrant abdominal pain 3. Chronic cholecystitis 4. Peritoneal adhesions, right and left upper quadrant OPERATION: Robotic-assisted da John Xi laparoscopic lysis of adhesions Robotic-assisted da John Xi laparoscopic cholecystectomy, multiport with FIREFLY ESTIMATED BLOOD LOSS: 5 mL. SPECIMENS REMOVED: Gallbladder. COMPLICATIONS: None. OPERATIVE FINDINGS: 1. Moderate scarring along the left upper quadrant involving gastric bypass jejunojejunostomy including gastrojejunostomy lites INDICATIONS: The patient is a 65-year-old female who presents with symptomatic gallstones. Robotic assisted laparoscopic approach was described. Benefits and risks of the procedure including but not limited to bleeding, infection, injury to the biliary tree was described. Informed consent was obtained. DESCRIPTION OF PROCEDURE: Patient was brought to the operating room, placed in supine position. After general induction, the abdomen had been prepped and draped in standard sterile fashion. The robotic da John XI system was primed. After a timeout protocol was performed, the patient had been prepped and draped in standard sterile fashion. The patient was injected with indocyanine green. A 5 mm 0 degrees laparoscopic trocar entry was performed along the left upper quadrant. The abdomen insufflated to 15 mmHg pressure which was tolerated well. Diagnostic laparoscopy demonstrated no injury to bowel viscera or mesentery. The liver surface was unremarkable. Next, two 8 mm robotic ports were placed along the right upper abdomen. The camera 8-mm port was maintained along the epigastrium. Another 8 mm port was placed along the left upper abdominal wall after exchanging the 5 mm port. Please note that the ports were placed at least 10 to 15 cm away from the target anatomy of the gallbladder. The robot was docked along the left lateral abdomen. The patient was repositioned in reverse Trendelenburg position. Using a grasper for arm 3, a grasper for arm 4, including hook cautery for arm 1, the robotic system was docked and primed as described. Instruments were interchanged by the assistant reading teacher including hook cautery, Bovie cautery and clip appliers. I had sat at the console. Adhesions along the left upper quadrant was identified involving the jejunojejunostomy including gastrojejunostomy all lysed using hook cautery. Next attention was brought to the infundibulum and cystic structures. The infundibulum and cystic duct were dissected free from surrounding tissues. The cystic duct was isolated. FIREFLY was used to identify the cystic artery and cystic structures. A critical view of safety was obtained. Large PLASTIC clips were used throughout the entire case. Using a clip cake washer, 2 clips were placed at the junction of the infundibulum and cystic duct. The cystic duct was divided between clips. Next, the cystic artery was similarly clipped and cauterized. Electro-Bovie cautery was used to remove the gallbladder from the hepatic fossa. Hemostasis was checked and found to be adequate. The robot was undocked. I re-scrubbed into the case. Using a 10 mm Endo Catch bag via the left upper quadrant incision, the specimen was removed from the abdominal cavity. All pneumoperitoneum instruments were evacuated from the abdominal cavity. The incisions were reapproximated using 4-0 Monocryl in an interrupted subcuticular fashion. Fascial defects were less than 8 mm in size. Please note along the trocar sites, local anesthetic was placed as a field block prior to insertion of all instruments. Liquid glue was applied to the skin. At the end of the procedure needle, sponge, and instrument count had been verified correct by the air technician. The patient was transferred to postanesthesia care unit in stable condition. Intraoperative films were shared with the patient's family. Plan - Discharge Summary Discharge Rx Participant: Yes New Discharge Prescriptions: New Acetaminophen [Tylenol] 650 mg PO Q4H PRN #30 tab PRN Reason: Pain Simethicone [Gas-X] 125 mg PO AC-TID PRN #20 capsule PRN Reason: Abdominal Distention Continue Ergocalciferol [Vitamin D2 (DRISDOL)] 50,000 unit PO FR Zinc 50 mg PO DAILY Mv-Mn/Folic AC/Calcium/Vit K1 [Women 50 Plus Multivit Adv Tab] 1 each PO DAILY Discharge Medication List Ergocalciferol [Vitamin D2 (DRISDOL)] 50,000 unit PO FR 02/28/19 [History] Mv-Mn/Folic AC/Calcium/Vit K1 [Women 50 Plus Multivit Adv Tab] 1 each PO DAILY 04/25/20 [History] Zinc 50 mg PO DAILY 04/25/20 [History] Acetaminophen [Tylenol] 650 mg PO Q4H PRN #30 tab 05/05/20 [Rx] Simethicone [Gas-X] 125 mg PO AC-TID PRN #20 capsule 05/05/20 [Rx] [place] Patient Instructions/Handouts: Laparoscopic Cholecystectomy (DC), Low Fat Diet (DC) Activity/Diet/Wound Care/Special Instructions: Recommend low-fat diet for the next 2 days. No lifting over 10 pounds in 2 weeks until May 19October shower. No bath tub soaks for two weeks until Diet as tolerated. Use Tylenol scheduled for the next 24-48 hours for best pain relief. Use ice along incisions for the today to prevent swelling. Discharge Disposition: HOME SELF-CARE
[2020-05-05] MEDS ORDERED: KETOROLAC 15 MG/ML 1 ML VIAL ONE (11:30)
[2020-05-05] MEDS ORDERED: SODIUM CHLORIDE 0.9% 1,000 ML IV ONE (11:31)
[2020-05-05] MEDS ORDERED: KETOROLAC 15 MG/ML 1 ML VIAL IVP STA (11:31)
[2020-05-05] MEDS ORDERED: DEXAMETHASONE SOD PHOSPHATE 4 MG/ML 1 ML VIAL IV STA (11:31)
[2020-05-05] MEDS ORDERED: SUMAtriptan succinate 6 MG/0.5 ML VIAL SQ STA (11:31)
[2020-05-05 13:57] VITALS: BP 127/60; PULSE 68
== END 2020-05-05 14:21 | disposition home or self-care (01) ==
LOC: OR 06:14
PROVIDERS: ATTEND Surgery Plastic and Reconstructive Surgery
DX: K81.1 Chronic cholecystitis (principal); K66.0 Peritoneal adhesions (postprocedural) (postinfection); K21.9 Gastro-esophageal reflux disease without esophagitis; E78.5 Hyperlipidemia, unspecified; G43.909 Migraine, unspecified, not intractable, without status migrainosus; Z87.442 Personal history of urinary calculi; Z87.440 Personal history of urinary (tract) infections; N81.4 Uterovaginal prolapse, unspecified; H93.19 Tinnitus, unspecified ear; Z98.84 Bariatric surgery status; Z90.710 Acquired absence of both cervix and uterus; Z90.722 Acquired absence of ovaries, bilateral; Z98.890 Other specified postprocedural states; Z82.49 Family history of ischemic heart disease and other diseases of the circulatory system; Z88.5 Allergy status to narcotic agent; Z88.2 Allergy status to sulfonamides; Z88.8 Allergy status to other drugs, medicaments and biological substances; Z88.6 Allergy status to analgesic agent; Z91.040 Latex allergy status
CPT/HCPCS: 47562; S2900; 88304

== ENCOUNTER → 2020-05-07 | Outpatient (CLI) | payer BC ==
[2020-05-07 14:14] VITALS: BP 135/84; PULSE 88; RESP 18; TEMP 98.7
--- NOTE | 2020-05-07 14:46 | P.PN ---
Subjective Progress Note Date: 05/07/20 DATE: 05/07/2020 CHIEF COMPLAINT: Status gastric bypass HISTORY OF PRESENT ILLNESS: Norman Bain is a 65-year-old female who is status post gastric bypass 02/14/2017. She is 3 years out. She is status post cholecystectomy 05/05/2021. She is less than 1 week out. She reports having dizziness. She was on gabapentin. She reports feeling better after getting food following her surgery. No reports of pain. She had nausea. Her initial weight was 206 pounds. Today she comes in weighing 183 pounds from 181 pounds, 1 month ago. She has gained 4 pounds in 1 months. Her ideal body for her 5-foot, 2-1/2-frame is 135 pounds. Body mass index is reduced from 37.2 to 33.3. Lifetime weight loss is 21 pounds. Percent excess weight loss is 30 %. PHYSICAL EXAM: VITAL SIGNS: 5 feet 2-1/2 inches, 185 pounds. BMI 33.3 Vital Signs Temp 98.7 F 05/07/20 14:07 Pulse 88 05/07/20 14:07 Resp 18 05/07/20 14:07 BP 135/84 05/07/20 14:07 Pulse Ox GENERAL: Well-developed, pleasant female in no acute distress. HEENT: Head is atraumatic, normocephalic. Extraocular movements grossly intact. NECK: Supple without lymphadenopathy. No large discrete thyroid nodule. CHEST: Nonlabored respirations with bilateral excursions. CARDIOVASCULAR: Regular rate and rhythm. ABDOMEN: Incisions intact MUSCULOSKELETAL: No clubbing, cyanosis, or edema. NEURO: No focal or lateralizing signs. Cranial nerves II-12. SKIN: Good skin turgor. Well-perfused. IMAGES: Reviewed with scar tissue pulling abdomen and chest ASSESSMENT: 1. Morbid obesity due to excess calories. 2. Body mass index of 37.2 down to 33.3 3. Gastroesophageal reflux disease, resolved. 4. Hypertensive heart disease, improved. 5. Metabolic syndrome. 6. Status post gastric bypass. 7. Gastrojejunal stricture. 8. Dysphagia. 9. Vitamin D deficiency 10. Panniculitis. 11. Thyroid nodule 12. Iron deficiency anemia 13. Hiatal hernia 14. Gallstones, status post cholecystectomy PLAN: 1. Plan for discontinue gabapentin. 2. Lifting restriction of 10 pounds for 2 weeks. Objective - Vital Signs Vital signs: Vital Signs Temp 98.7 F 05/07/20 14:07 Pulse 88 05/07/20 14:07 Resp 18 05/07/20 14:07 BP 135/84 05/07/20 14:07 Pulse Ox Intake & Output 05/06/20 05/07/20 05/07/20 18:59 06:59 18:59 Weight 83.915 kg
== END | disposition home or self-care (01) ==
LOC: BARWHC3 13:37
PROVIDERS: ATTEND Surgery Plastic and Reconstructive Surgery
DX: E66.01 Morbid (severe) obesity due to excess calories (principal); I11.9 Hypertensive heart disease without heart failure; E88.81 Metabolic syndrome and other insulin resistance; R13.10 Dysphagia, unspecified; E55.9 Vitamin D deficiency, unspecified; M79.3 Panniculitis, unspecified; K44.9 Diaphragmatic hernia without obstruction or gangrene; E04.1 Nontoxic single thyroid nodule; D50.9 Iron deficiency anemia, unspecified; Z68.33 Body mass index [BMI] 33.0-33.9, adult; Z98.84 Bariatric surgery status; Z90.49 Acquired absence of other specified parts of digestive tract
CPT/HCPCS: 99211

== ENCOUNTER → 2020-06-02 | Outpatient (CLI) | payer BC ==
--- NOTE | 2020-06-03 14:24 | MM ---
Reason for exam: screening (asymptomatic). Last mammogram was performed 1 year and 1 month ago. History: Patient is postmenopausal. Took hormonal contraceptives for 5 years. Took estrogen for 9 years beginning at age 41. Physical Findings: A clinical breast exam by your physician is recommended on an annual basis and results should be correlated with mammographic findings. MG 3D Screening Mammo W/Cad Bilateral CC and MLO view(s) were taken. Prior study comparison: May 01, 2019, bilateral MG screening mammo w CAD. March 16, 2018, bilateral MG 3d screening mammo w/cad. There are scattered fibroglandular densities. No significant changes when compared with prior studies. ASSESSMENT: Benign, BI-RAD 2 RECOMMENDATION: Routine screening mammogram of both breasts in 1 year.
== END | disposition home or self-care (01) ==
LOC: RADMAMWWP 13:32
PROVIDERS: ATTEND Family Medicine
DX: Z12.31 Encounter for screening mammogram for malignant neoplasm of breast (principal)
CPT/HCPCS: 77063; 77067

== ENCOUNTER → 2021-02-11 | Outpatient (CLI) | payer BC ==
--- NOTE | 2021-02-11 15:21 | P.PN ---
Subjective Progress Note Date: 02/11/21 She lost weight and had a hemorrhoids. She saw Dr Hernandez. She had lost weight from last year of almost 10 pounds. She needs bariatric labs due to memory loss. She has epigastric belly pain and violent gas. She has not seen food hand flatwork finisher. Recommend food hand flatwork finisher. Advocated for COVID vaccine. She has new troubles gas. She is eating tito slaw. Recommend CT scan for abdominal pain. Spoke to with all questions addressed.
[2021-02-11 16:21] VITALS: BP 154/86; PULSE 69; RESP 18; TEMP 98.3; BMI 32.0
[2021-02-11 16:49] LABS: HCT 40.1 % (34.0-46.0); HGB 13.6 gm/dL (11.4-16.0); MCH 31.3 pg (25.0-35.0); MCHC 33.8 g/dL (31.0-37.0); MCV 92.6 fL (80.0-100.0); Mean Platelet Volume 7.9; Platelet Count 264 k/uL (150-450); RBC 4.33 m/uL (3.80-5.40); RDW 13.4 % (11.5-15.5); WBC 8.8 k/uL (3.8-10.6)
[2021-02-11 23:52] LABS: Hemoglobin A1C 5.1 % (4.0-6.0)
[2021-02-12 01:59] LABS: INR 0.93 (0.90-1.11); Partial Thromboplastin Time 25.7 sec (23.5-31.0); Prothrombin Time 10.2 sec (9.9-11.9)
[2021-02-12 10:31] LABS: Zinc, Serum 63 ug/dL (60-130)
[2021-02-12 15:42] LABS: Folate, Serum 7.8 ng/mL
[2021-02-12 16:24] LABS: Chol/HDL Ratio 3.91; Magnesium 2.2 mg/dL (1.5-2.4)
[2021-02-12 16:25] LABS: % Iron Saturation 11.46 (12.00-45.00); African American GFR (CKD) 68.5 (60.0-200.0); Albumin 4.5 g/dL (3.80-4.90); Albumin/Globulin Ratio 2.25 (1.60-3.17); Calcium 8.9 mg/dL (8.7-10.3); Ferritin 316.2 ng/mL (10.0-291.0); Non-African American GFR(CKD) 59.1 (60.0-200.0); Total Bilirubin 0.3 mg/dL (0.3-1.2); Total Protein 6.5 g/dL (6.2-8.2)
[2021-02-13 06:09] LABS: Vitamin A 43 ug/dL (38-106)
[2021-02-13 13:06] LABS: Vit B1(Thiamine) 78 ug/L (38-122)
== END | disposition home or self-care (01) ==
LOC: BARWHC3 14:42
PROVIDERS: ATTEND Surgery Plastic and Reconstructive Surgery
DX: E89.1 Postprocedural hypoinsulinemia (principal); D50.8 Other iron deficiency anemias; E44.0 Moderate protein-calorie malnutrition; E55.9 Vitamin D deficiency, unspecified; K74.1 Hepatic sclerosis; N19 Unspecified kidney failure; K50.90 Crohn's disease, unspecified, without complications
CPT/HCPCS: 36415; 80053; 80061; 82306; 82525; 82607; 82728; 82746; 83036; 83540; 83550; 83721; 83735; 83970; 84100; 84134; 84255; 84425; 84443; 84590; 84630; 85027; 85610; 85730; 99211

== ENCOUNTER → 2021-03-10 | Outpatient (CLI) | payer MEDICARE ==
--- NOTE | 2021-03-11 05:58 | CT ---
EXAMINATION TYPE: CT abdomen pelvis w con DATE OF EXAM: 03/10/2021 HISTORY: abdominal pain, diarrhea. hx of diverticulitis. CT DLP: 1550mGycm Automated Exposure Control for Dose Reduction was Utilized. CONTRAST: CT scan of the abdomen and pelvis is performed with oral and with IV Contrast, patient injected with 100 mL of Isovue 300. COMPARISON: CT abdomen and pelvis April 15, 2016 FINDINGS: LUNG BASES: No significant abnormality is appreciated. LIVER/GB: Persistent peripheral 1.5 cm linear shaped hyperdense area right hepatic lobe series 2 imag e 19 becomes isodense on delayed phase images consistent with transient hepatic attenuation differenc e. Gallbladder now not seen suspected surgically absent. No new biliary dilatation. PANCREAS: No significant abnormality is seen. SPLEEN: No significant abnormality is seen. ADRENALS: No significant abnormality is seen. KIDNEYS: Interval passage and/or treatment of 8mm right renal calculus. Symmetric cortical medullary uptake and excretion are current study without hydronephrosis seen bilaterally. BOWEL: Stable small sized hiatal hernia. Oral contrast does not reach level of the terminal ileum. In terval surgical changes from gastric bypass procedure noted epigastric level. Small bowel feces sign in the distal ileum. No suspicious small or large bowel dilatation. Finding consistent with delayed p assage of ingested material to colonic level. Distal colonic diverticulosis. No CT evidence for acute diverticulitis. Stable high positioning of the cecum just below the inferior liver margin. UTERUS/ADNEXA: Uterus surgically absent. Scattered pelvic phleboliths redemonstrated. LYMPH NODES: No greater than 1cm abdominal or pelvic lymph nodes are appreciated. OSSEOUS STRUCTURES: Moderate to severe disc space narrowing with vacuum disc phenomenon at L5-S1 leve l redemonstrated. OTHER: No significant additional abnormality is seen. IMPRESSION: Colonic diverticulosis without CT evidence for acute diverticulitis. Interval gastric byp ass surgery. No bowel obstruction. No acute findings are evident.
== END | disposition home or self-care (01) ==
LOC: RADCTMAIN 15:17
PROVIDERS: ATTEND Surgery Plastic and Reconstructive Surgery
DX: K57.30 Diverticulosis of large intestine without perforation or abscess without bleeding (principal)
CPT/HCPCS: 82565; 84520; 74177; 36415; Q9967

== ENCOUNTER 2021-05-02 10:22 | Observation (INO) | payer MEDICARE ==
[2021-05-02] MEDS ORDERED: NITROGLYCERIN OINT 1 INCH/GM PACKET TOPICAL STA (10:38)
--- NOTE | 2021-05-02 10:40 | ED ---
General Adult HPI - General Chief complaint: Chest Pain Stated complaint: chest pain Time Seen by Provider: 05/02/21 10:29 Source: patient, EMS, RN notes reviewed Mode of arrival: EMS Limitations: no limitations - History of Present Illness Initial comments: Patient is a pleasant 66-year-old female presenting to the emergency Department with chest discomfort. Onset of symptoms was yesterday evening. Discomfort has been waxing and waning, somewhat worse this morning. Discomfort feels like tightness. No radiation. No associated dyspnea, nausea, or diaphoresis. Patient has had some intermittent palpitations as well. No history of previous diagnosed cardiac disease. - Related Data Home Medications Medication Instructions Recorded Confirmed Zinc 50 mg PO DAILY 04/25/20 05/02/21 Ergocalciferol [Vitamin D2 (1250 1,250 mcg PO TH 05/02/21 05/02/21 Mcg = 15867 Iu)] Ferrous Sulfate [Feosol] 325 mg PO BID 05/02/21 05/02/21 Vision Vitamin(Unknown) 1 tab PO DAILY 05/02/21 05/02/21 Allergies Allergy/AdvReac Type Severity Reaction Status Date / Time hydrocodone [From [place]] Allergy Severe Anaphylaxis Verified 05/02/21 11:46 aspirin Allergy asthma Verified 05/02/21 11:46 attack hydromorphone [From Dilaudid] Allergy Dyspnea Verified 05/02/21 11:46 latex Allergy Anaphylaxis Verified 05/02/21 11:46 Penicillins Allergy Rash/Hives Verified 05/02/21 11:46 procaine [From Novocain] Allergy Anaphylaxis Verified 05/02/21 11:46 Sulfa (Sulfonamide Allergy painful Verified 05/02/21 11:46 Antibiotics) rash tamsulosin Allergy Rash/Hives Verified 05/02/21 11:46 Review of Systems ROS Statement: Those systems with pertinent positive or pertinent negative responses have been documented in the HPI. ROS Other: All systems not noted in ROS Statement are negative. Constitutional: Denies: fever Eyes: Denies: eye pain ENT: Denies: ear pain Respiratory: Denies: cough, dyspnea Cardiovascular: Reports: as per HPI, chest pain, palpitations Endocrine: Denies: fatigue Gastrointestinal: Denies: abdominal pain Genitourinary: Denies: dysuria Musculoskeletal: Denies: back pain Skin: Denies: rash Neurological: Denies: weakness Past Medical History Past Medical History: GERD/Reflux, Hyperlipidemia Additional Past Medical History / Comment(s): migraines, chronic kidney stones (have required lithotripsy), UTI's, Uterine Prolapse (Not requiring surgery as of 06/14/18); Possible Ocular Migraines (Opthamologist looking into this as of June 2018) History of Any Multi-Drug Resistant Organisms: None Reported Past Surgical History: Adenoidectomy, Bariatric Surgery, Cholecystectomy, Hysterectomy, Tonsillectomy Additional Past Surgical History / Comment(s): BILATERAL oophorectomy,emergency laproscopic surgery, egd, colonoscopy, shockwave lithotripsy, gastric bypass 02-14-17 (Dr. Michelle Bernardo) Past Anesthesia/Blood Transfusion Reactions: Previous Problems w/ Anesthesia, Postoperative Nausea & Vomiting (PONV) Additional Past Anesthesia/Blood Transfusion Reaction / Comment(s): "was in coma for 4 days after exploratory laproscopy had very low blood pressure. Prior to surgery,had internal bleeding " Past Psychological History: No Psychological Hx Reported Smoking Status: Never smoker Past Alcohol Use History: None Reported Past Drug Use History: None Reported - Past Family History Mother Family Medical History: Deep Vein Thrombosis (DVT) General Exam Limitations: no limitations General appearance: alert, in no apparent distress Head exam: Present: normocephalic Eye exam: Present: normal appearance Neck exam: Present: normal inspection Respiratory exam: Present: normal lung sounds bilaterally. Absent: chest wall tenderness Cardiovascular Exam: Present: regular rate, normal rhythm Expanded Peripheral pulses: 2+: Radial (R), Radial (L), Dorsalis Pedis (R), Dorsalis Pedis (L) GI/Abdominal exam: Present: soft. Absent: tenderness Extremities exam: Present: normal inspection. Absent: pedal edema, calf tenderness Neurological exam: Present: alert Psychiatric exam: Present: normal affect, normal mood Skin exam: Present: normal color Course Vital Signs 05/02/21 05/02/21 05/02/21 10:24 11:22 11:31 Temperature 98.6 F Pulse Rate 72 68 63 Respiratory 18 17 18 Rate Blood Pressure 154/91 148/78 129/76 O2 Sat by Pulse 97 97 97 Oximetry EKG Findings - EKG Comments: EKG Findings:: Normal sinus rhythm with rate is 66. MS 118. QRS 80. QT 416. QTC 436. Normal axis. Normal QRS. No acute ST change. Medical Decision Making - Medical Decision Making Patient reevaluated and resting comfortably in bed. Mild symptoms at this time. Patient and family updated on results and plan. Case was discussed with Dr. Vera, who will admit for Dr. Mulligan. - Lab Data Result diagrams: 05/02/21 10:42 05/02/21 10:42 Lab Results 05/02/21 05/02/21 05/02/21 Range/Units 10:42 10:42 10:42 WBC 6.2 (3.8-10.6) k/uL RBC 4.53 (3.80-5.40) m/uL Hgb 13.7 (11.4-16.0) gm/dL Hct 40.3 (34.0-46.0) % MCV 89.0 (80.0-100.0) fL MCH 30.3 (25.0-35.0) pg MCHC 34.0 (31.0-37.0) g/dL RDW 13.5 (11.5-15.5) % Plt Count 251 (150-450) k/uL MPV 7.8 Neutrophils % 68 % Lymphocytes % 22 % Monocytes % 6 % Eosinophils % 2 % Basophils % 1 % Neutrophils # 4.2 (1.3-7.7) k/uL Lymphocytes # 1.4 (1.0-4.8) k/uL Monocytes # 0.4 (0-1.0) k/uL Eosinophils # 0.2 (0-0.7) k/uL Basophils # 0.0 (0-0.2) k/uL PT 10.0 (9.0-12.0) sec INR 0.9 (<1.2) APTT 22.6 (22.0-30.0) sec Sodium 140 (137-145) mmol/L Potassium 4.0 (3.5-5.1) mmol/L Chloride 109 H (98-107) mmol/L Carbon Dioxide 24 (22-30) mmol/L Anion Gap 7 mmol/L BUN 18 H (7-17) mg/dL Creatinine 0.67 (0.52-1.04) mg/dL Est GFR (CKD-EPI)AfAm >90 (>60 ml/min/1.73 sqM) Est GFR (CKD-EPI)NonAf >90 (>60 ml/min/1.73 sqM) Glucose 105 H (74-99) mg/dL Calcium 8.9 (8.4-10.2) mg/dL Magnesium 2.0 (1.6-2.3) mg/dL Total Bilirubin 0.5 (0.2-1.3) mg/dL AST 22 (14-36) U/L ALT 14 (4-34) U/L Alkaline Phosphatase 58 (38-126) U/L Troponin I (0.000-0.034) ng/mL Total Protein 6.6 (6.3-8.2) g/dL Albumin 4.0 (3.5-5.0) g/dL 05/02/21 Range/Units 10:42 WBC (3.8-10.6) k/uL RBC (3.80-5.40) m/uL Hgb (11.4-16.0) gm/dL Hct (34.0-46.0) % MCV (80.0-100.0) fL MCH (25.0-35.0) pg MCHC (31.0-37.0) g/dL RDW (11.5-15.5) % Plt Count (150-450) k/uL MPV Neutrophils % % Lymphocytes % % Monocytes % % Eosinophils % % Basophils % % Neutrophils # (1.3-7.7) k/uL Lymphocytes # (1.0-4.8) k/uL Monocytes # (0-1.0) k/uL Eosinophils # (0-0.7) k/uL Basophils # (0-0.2) k/uL PT (9.0-12.0) sec INR (<1.2) APTT (22.0-30.0) sec Sodium (137-145) mmol/L Potassium (3.5-5.1) mmol/L Chloride (98-107) mmol/L Carbon Dioxide (22-30) mmol/L Anion Gap mmol/L BUN (7-17) mg/dL Creatinine (0.52-1.04) mg/dL Est GFR (CKD-EPI)AfAm (>60 ml/min/1.73 sqM) Est GFR (CKD-EPI)NonAf (>60 ml/min/1.73 sqM) Glucose (74-99) mg/dL Calcium (8.4-10.2) mg/dL Magnesium (1.6-2.3) mg/dL Total Bilirubin (0.2-1.3) mg/dL AST (14-36) U/L ALT (4-34) U/L Alkaline Phosphatase (38-126) U/L Troponin I <0.012 (0.000-0.034) ng/mL Total Protein (6.3-8.2) g/dL Albumin (3.5-5.0) g/dL - Radiology Data Radiology results: image reviewed (Chest x-ray shows no acute process) Disposition Clinical Impression: Chest pain Disposition: ADMITTED IP TO THIS HOSP Is patient prescribed a controlled substance at d/c from ED?: No Referrals: Jessica Mulligan III, MD [Primary Care Provider] - 1-2 days Decision Time: 12:23
[2021-05-02 10:52] LABS: Basophils % (A) 1 %; Eosinophils # (A) 0.2 k/uL (0-0.7); Eosinophils % (A) 2 %; HCT 40.3 % (34.0-46.0); HGB 13.7 gm/dL (11.4-16.0); Lymphocytes # (A) 1.4 k/uL (1.0-4.8); Lymphocytes % (A) 22 %; MCH 30.3 pg (25.0-35.0); Mean Platelet Volume 7.8; Monocytes # (A) 0.4 k/uL (0-1.0); Monocytes % (A) 6 %; Neutrophils # (A) 4.2 k/uL (1.3-7.7); Neutrophils % (A) 68 %; Platelet Count 251 k/uL (150-450); RBC 4.53 m/uL (3.80-5.40); RDW 13.5 % (11.5-15.5); WBC 6.2 k/uL (3.8-10.6)
[2021-05-02 11:00] LABS: ALT 14 U/L (4-34); AST 22 U/L (14-36); African American GFR (CKD) >90 (>60 ml/min/1.73 sqM); Alkaline Phosphatase 58 U/L (38-126); Anion Gap 7 mmol/L; Blood Urea Nitrogen 18 mg/dL (7-17); Calcium 8.9 mg/dL (8.4-10.2); Carbon Dioxide 24 mmol/L (22-30); Chloride 109 mmol/L (98-107); Glucose 105 mg/dL (74-99); Non-African American GFR(CKD) >90 (>60 ml/min/1.73 sqM); Sodium 140 mmol/L (137-145); Total Bilirubin 0.5 mg/dL (0.2-1.3); Total Protein 6.6 g/dL (6.3-8.2)
[2021-05-02 11:04] LABS: INR 0.9 (<1.2); Partial Thromboplastin Time 22.6 sec (22.0-30.0)
--- NOTE | 2021-05-02 11:08 | XR ---
EXAMINATION TYPE: XR chest 2V DATE OF EXAM: 05/02/2021 COMPARISON: Chest x-ray November 16, 2016 HISTORY: Chest pain. TECHNIQUE: Frontal and lateral views of the chest are obtained. FINDINGS: Overlying EKG leads. There is persistent linear left basilar opacity. Right lung is clear. No pleural effusion or pneumothorax seen bilaterally. The cardiac silhouette size is stable and with in normal limits. The osseous structures are intact. IMPRESSION: Stable lateral left basilar linear scarring and/or atelectasis.
[2021-05-02] MEDS ORDERED: NITROGLYCERIN SL TABS 0.4 MG TAB SUBLINGUAL PRN (12:23)
[2021-05-02] MEDS ORDERED: ALPRAZolam 0.25 MG TAB PO PRN (16:36)
[2021-05-02] MEDS ORDERED: ACETAMINOPHEN TAB 500 MG TAB PO PRN (16:36)
[2021-05-02] MEDS: PANTOPRAZOLE 40 MG TABLET PO SCH (17:28)
--- NOTE | 2021-05-02 18:09 | PN ---
PROGRESS NOTE DATE OF SERVICE: 05/02/2021 CHIEF COMPLAINT: Chest pain. HISTORY OF PRESENT ILLNESS: This 66-year-old woman with a past medical history of multiple medical problems, including history of GERD, history of hyperlipidemia, history of migraine, history of adenoidectomy, history of bariatric surgery, being followed by Dr. Mulligan in the outpatient setting, was complaining of chest pain. The patient had chest pain in the anterior part of the chest which was waxing and waning. The patient still has pain, about 3/10, and the patient also had some pain-like tightness. There is no radiation of pain elsewhere. There is no history of any fever, rigors or chills. No history of nausea, vomiting, diarrhea or any aggravating or relieving factors. The patient came to [facility]. The troponins are negative, less than 0.012. EKG, which I reviewed personally, showed normal sinus rhythm and a nonspecific ST-T changes also. There is no history of any fever, rigor or chills at this time. PAST MEDICAL HISTORY: History of GERD, hyperlipidemia, history of migraine, history of adenoidectomy, bariatric surgery, cholecystectomy, hysterectomy, multiple allergies. HOME MEDICATIONS: Zinc, iron sulfate and vitamin D. ALLERGIES: NORCO, ASPIRIN, DILAUDID, LATEX, PENICILLIN, NOVOCAIN, SULFA, FLOMAX. FAMILY HISTORY: No history of heart disease or strokes in the family. SOCIAL HISTORY: No history of smoking. No history of alcohol intake. REVIEW OF SYSTEMS: ENT: No diminished hearing. No diminished vision. CARDIOVASCULAR SYSTEM: As mentioned earlier. RESPIRATORY SYSTEM: As mentioned earlier. GI: No nausea, vomiting, diarrhea. : No dysuria. NERVOUS SYSTEM: No numbness, weakness. ALLERGY/IMMUNOLOGY: No asthma or hay fever. MUSCULOSKELETAL: As mentioned earlier. HEMATOLOGY/ONCOLOGY: No history of anemia. ENDOCRINE: No history of diabetes or hypothyroidism. CONSTITUTIONAL: As mentioned earlier. DERMATOLOGY: Negative. RHEUMATOLOGY: Negative. PSYCHIATRY: As mentioned earlier. PHYSICAL EXAMINATION: Patient alert and oriented x3. Pulse is 68, blood pressure 120/74, respiration 18, temperature 98.1, pulse ox 96% on room air. HEENT: Conjunctivae normal. NECK: No jugular venous distention. CARDIOVASCULAR: S1, S2 muffled. RESPIRATION: Breath sounds diminished at the bases. No rhonchi. No crackles. ABDOMEN: Soft, nontender. No mass palpable. LEGS: No edema. No swelling. NERVOUS SYSTEM: Higher functions as mentioned earlier. Moves all 4 limbs. No focal motor or sensory deficit. LYMPHATICS: No lymph node palpable in neck, axillae or groin. SKIN: No ulcer, rash, bleeding. JOINTS: No active deforming arthropathy. LABS: CBC within normal limits. Chloride is 109, BUN is 18. Other labs are noted. ASSESSMENT: 1. Chest pain; possible unstable angina. 2. History of gastroesophageal reflux disease. 3. Hyperlipidemia. 4. History of migraine. 5. History of chronic kidney stones. 6. History of urinary tract infection. 7. Uterine prolapse. 8. History of possible ocular migraines. 9. History of adenoidectomy. 10.History of bariatric surgery. 11.History of cholecystectomy. 12.Multiple allergies. 13.History of anaphylaxis. 14.History of shockwave lithotripsy. 15.History of gastric bypass. 16.FULL CODE. RECOMMENDATIONS AND DISCUSSION: In this 66-year-old woman who presented with multiple complex issues, we will monitor the patient closely. I recommend unstable angina protocol. Cardiology consultation. Possible stress test. Prognosis is guarded because of multiple complex medical issues. Further recommendations to follow. A copy of this dictation is being forwarded to Dr. Mulligan, who is the primary physician. MMODL / IJN: [id number] /
[2021-05-02] MEDS: NITROGLYCERIN OINT 1 INCH/GM PACKET TOPICAL SCH ×2 (18:14→23:08)
[2021-05-02] MEDS: FERROUS SULFATE 325 MG TAB PO SCH (20:14)
[2021-05-03] MEDS: NITROGLYCERIN OINT 1 INCH/GM PACKET TOPICAL SCH ×2 (05:44→12:18)
[2021-05-03 08:32] VITALS: BP 118/74; PULSE 55; RESP 18; TEMP 98
[2021-05-03] MEDS ORDERED: ZINC SULFATE 220 MG CAP PO SCH (09:00)
[2021-05-03] MEDS: PANTOPRAZOLE 40 MG TABLET PO SCH (09:10)
[2021-05-03] MEDS: FERROUS SULFATE 325 MG TAB PO SCH (09:10)
[2021-05-03 09:25] LABS: Basophils # (A) 0.05 X 10*3/uL (0.00-0.10); Basophils % (A) 0.9 %; Eosinophils # (A) 0.13 X 10*3/uL (0.04-0.35); Eosinophils % (A) 2.2 %; HCT 39.5 % (37.2-46.3); HGB 12.7 g/dL (12.0-15.0); Lymphocytes # (A) 1.77 X 10*3/uL (0.90-5.00); Lymphocytes % (A) 30.2 %; MCH 29.9 pg (27.0-32.0); MCHC 32.2 g/dL (32.0-37.0); MCV 92.9 fL (80.0-97.0); Mean Platelet Volume 10.5 fL (9.5-12.2); Monocytes # (A) 0.56 X 10*3/uL (0.20-1.00); Monocytes % (A) 9.6 %; Neutrophils # (A) 3.34 X 10*3/uL (1.80-7.70); Neutrophils % (A) 56.9 %; Platelet Count 258 X 10*3/uL (140-440); RBC 4.25 X 10*6/uL (4.10-5.20); RDW 13.6 % (11.5-14.5); WBC 5.86 X 10*3/uL (4.50-10.00)
--- NOTE | 2021-05-03 09:56 | P.CRDCN ---
History of Present Illness History of present illness: HISTORY OF PRESENTING ILLNESS This is a pleasant 66-year-old female with no significant past medical history. We have been asked to see in consultation for chest pain. She states while attempting to sleep on Tuesday night she felt her heart racing associated with a pressure sensation. The palpitations lasted for approximately 2 hours. When she woke up in the morning the chest discomfort and palpitations had subsided. She had another episode of chest discomfort prompting her to call EMS. According to the patient EMS told her she was having "extra beats". She has had no arrhythmias noted on telemetry since being in the hospital. EKG reveals sinus mechanism with no acute ST or T wave abnormalities noted. Chest x-ray is negative for an acute cardiopulmonary process. She takes no daily cardiac medications. REVIEW OF SYSTEMS At the time of my exam: CONSTITUTIONAL: Denies fever or chills. CARDIOVASCULAR: Denies chest pain, shortness of breath, orthopnea, PND or p alpitations. RESPIRATORY: Denies cough. GASTROINTESTINAL: Denies abdominal pain, diarrhea, constipation, nausea or vomiting. MUSCULOSKELETAL: Denies myalgias. NEUROLOGIC: Denies numbness, tingling, headache or weakness. ENDOCRINE: Denies fatigue, weight change, polydipsia or polyurina. GENITOURINARY: Denies burning, hematuria or urgency with micturation. HEMATOLOGIC: Denies history of anemia or bleeding. PHYSICAL EXAMINATION Blood pressure 99/63 heart rate 62 afebrile and maintaining oxygen saturation on room air. CONSTITUTIONAL: No apparent distress. HEENT: Head is normocephalic. Pupils are equal, round. Sclerae anicteric. Mucous membranes of the mouth are moist. No JVD. No carotid bruit. CHEST EXAMINATION: Lungs are clear to auscultation. No chest wall tenderness is noted on palpation or with deep breathing. HEART EXAMINATION: Regular rate and rhythm. S1, S2 heard. No murmurs, gallops or rub. ABDOMEN: Soft, nontender. EXTREMITIES: 2+ peripheral pulses, no lower extremity edema and no calf tenderness. NEUROLOGIC EXAMINATION: Patient is awake, alert and oriented x3. ASSESSMENT Chest pain and palpitations PLAN An acute coronary event has been ruled out. Telemetry tracings have been unremarkable for an acute arrhythmia. Pain is atypical for angina. Stable for discharge home to follow-up in the office for outpatient stress testing and holter monitor. Thank you kindly for this consultation. Nurse Practitioner note has been reviewed, I agree with a documented findings and plan of care. Patient was seen and examined. Past Medical History Past Medical History: GERD/Reflux, Hyperlipidemia Additional Past Medical History / Comment(s): migraines, chronic kidney stones (have required lithotripsy), UTI's, Uterine Prolapse (Not requiring surgery as of 06/14/18); Possible Ocular Migraines (Opthamologist looking into this as of June 2018) History of Any Multi-Drug Resistant Organisms: None Reported Past Surgical History: Adenoidectomy, Bariatric Surgery, Cholecystectomy, Hysterectomy, Tonsillectomy Additional Past Surgical History / Comment(s): BILATERAL oophorectomy,emergency laproscopic surgery, egd, colonoscopy, shockwave lithotripsy, gastric bypass 02-14-17 (Dr. Michelle Bernardo) Past Anesthesia/Blood Transfusion Reactions: Previous Problems w/ Anesthesia, Postoperative Nausea & Vomiting (PONV) Additional Past Anesthesia/Blood Transfusion Reaction / Comment(s): "was in coma for 4 days after exploratory laproscopy had very low blood pressure. Prior to surgery,had internal bleeding " Past Psychological History: No Psychological Hx Reported Smoking Status: Never smoker Past Alcohol Use History: None Reported Past Drug Use History: None Reported - Past Family History Mother Family Medical History: Deep Vein Thrombosis (DVT) Medications and Allergies Home Medications Medication Instructions Recorded Confirmed Type Zinc 50 mg PO DAILY 04/25/20 05/02/21 History Ergocalciferol [Vitamin D2 (1250 1,250 mcg PO TH 05/02/21 05/02/21 History Mcg = 58658 Iu)] Ferrous Sulfate [Feosol] 325 mg PO BID 05/02/21 05/02/21 History Vision Vitamin(Unknown) 1 tab PO DAILY 05/02/21 05/02/21 History Allergies Allergy/AdvReac Type Severity Reaction Status Date / Time hydrocodone [From [place]] Allergy Severe Anaphylaxis Verified 05/02/21 11:46 aspirin Allergy asthma Verified 05/02/21 11:46 attack hydromorphone [From Dilaudid] Allergy Dyspnea Verified 05/02/21 11:46 latex Allergy Anaphylaxis Verified 05/02/21 11:46 Penicillins Allergy Rash/Hives Verified 05/02/21 11:46 procaine [From Novocain] Allergy Anaphylaxis Verified 05/02/21 11:46 Sulfa (Sulfonamide Allergy painful Verified 05/02/21 11:46 Antibiotics) rash tamsulosin Allergy Rash/Hives Verified 05/02/21 11:46 Physical Exam Vitals: Vital Signs Temp Pulse Pulse Pulse Resp BP BP 05/03/21 07:00 98.0 F 55 L 18 118/74 05/03/21 02:05 97.9 F 62 16 99/63 05/02/21 19:20 98.5 F 66 18 133/80 05/02/21 14:45 98.1 F 68 18 120/74 05/02/21 13:24 76 18 127/71 05/02/21 11:31 63 18 129/76 05/02/21 11:22 68 17 148/78 05/02/21 10:24 98.6 F 72 18 154/91 Pulse Ox 05/03/21 07:00 98 05/03/21 02:05 96 05/02/21 19:20 95 05/02/21 14:45 96 05/02/21 13:24 96 05/02/21 11:31 97 05/02/21 11:22 97 05/02/21 10:24 97 Intake and Output 05/02/21 05/03/21 05/03/21 22:59 06:59 14:59 Intake Total 120 Output Total 0 0 Balance 120 0 Intake: Oral 120 Output: Emesis 0 0 Other: # Voids 1 Results 05/03/21 06:09 05/02/21 10:42 Cardiac Enzymes 05/02/21 05/02/21 05/02/21 Range/Units 10:42 10:42 14:12 AST 22 (14-36) U/L Troponin I <0.012 <0.012 (0.000-0.034) ng/mL 05/02/21 Range/Units 16:53 AST (14-36) U/L Troponin I <0.012 (0.000-0.034) ng/mL Coagulation 05/02/21 Range/Units 10:42 PT 10.0 (9.0-12.0) sec APTT 22.6 (22.0-30.0) sec CBC 05/02/21 Range/Units 10:42 WBC 6.2 (3.8-10.6) k/uL RBC 4.53 (3.80-5.40) m/uL Hgb 13.7 (11.4-16.0) gm/dL Hct 40.3 (34.0-46.0) % Plt Count 251 (150-450) k/uL Comprehensive Metabolic Panel 05/02/21 Range/Units 10:42 Sodium 140 (137-145) mmol/L Potassium 4.0 (3.5-5.1) mmol/L Chloride 109 H (98-107) mmol/L Carbon Dioxide 24 (22-30) mmol/L BUN 18 H (7-17) mg/dL Creatinine 0.67 (0.52-1.04) mg/dL Glucose 105 H (74-99) mg/dL Calcium 8.9 (8.4-10.2) mg/dL AST 22 (14-36) U/L ALT 14 (4-34) U/L Alkaline Phosphatase 58 (38-126) U/L Total Protein 6.6 (6.3-8.2) g/dL Albumin 4.0 (3.5-5.0) g/dL Current Medications Generic Name Dose Route Start Last Admin Trade Name Freq PRN Reason Stop Dose Admin Acetaminophen 500 mg 05/02/21 16:36 Acetaminophen Tab 500 Mg Tab PO Q6HR PRN Fever and/ or Pain Alprazolam 0.25 mg 05/02/21 16:36 Alprazolam 0.25 Mg Tab PO TID PRN Anxiety Ergocalciferol 1,250 mcg 05/07/21 09:00 Ergocalciferol 1,250 Mcg (50,000 Iu) Capsule PO TH [facility] Ferrous Sulfate 325 mg 05/02/21 21:00 05/03/21 09:10 Ferrous Sulfate 325 Mg Tab PO 325 mg BID [facility] Administration Nitroglycerin 0.4 mg 05/02/21 12:23 Nitroglycerin Sl Tabs 0.4 Mg Tab SUBLINGUAL Q5M PRN Chest Pain Nitroglycerin 1 inch 05/02/21 18:00 05/03/21 05:44 Nitroglycerin Oint 1 Inch/Gm Packet TOPICAL Not Given Q6HR [facility] Pantoprazole Sodium 40 mg 05/02/21 16:45 05/03/21 09:10 Pantoprazole 40 Mg Tablet PO Not Given [facility] Zinc Sulfate 220 mg 05/03/21 09:00 05/03/21 09:10 Zinc Sulfate 220 Mg Cap PO 220 mg DAILY CITLALY Administration Intake and Output 05/02/21 05/03/21 05/03/21 22:59 06:59 14:59 Intake Total 120 Output Total 0 0 Balance 120 0 Intake: Oral 120 Output: Emesis 0 0 Other: # Voids 1 05/02/21 10:42 05/02/21 10:42
[2021-05-03 10:36] LABS: African American GFR (CKD) 92.2 (60.0-200.0); BUN/Creat Ratio 20.97 Ratio (12.00-20.00); Blood Urea Nitrogen 16.4 mg/dL (9.0-27.0); Calcium 8.8 mg/dL (8.7-10.3); Carbon Dioxide 25.6 mmol/L (20.0-27.5); Chloride 108 mmol/L (96-109); Chol/HDL Ratio 3.96 Ratio; Glucose 97 mg/dL (70-110); LDL Cholesterol,Calculated 109.8 mg/dL (0.0-131.0); Non-African American GFR(CKD) 79.5 (60.0-200.0); Potassium 3.9 mmol/L (3.5-5.5); Sodium 144 mmol/L (135-145)
--- NOTE | 2021-05-06 22:18 | P.DS ---
Providers Date of admission: 05/02/21 12:23 Expected date of discharge: 05/03/21 Attending physician: Colleen Vera Consults: 05/02/21 12:23 Consult Physician Urgent Consulting Provider: Antonio Carmona Consult Reason/Comments: cp Do you want consulting provider notified?: Yes Primary care physician: Jessica Mulligan [facility] Course: Final diagnosis Chest pain, possible unstable angina History of gastroesophageal reflux disease Hyperlipidemia History of migraine history of chronic kidney stones history of urinary tract infection uterine prolapse history of possible ocular migraines history of adenoidectomy history of bariatric surgery History of cholecystectomy Multiple ALLERGIES history of anaphylaxis History of shockwave lithotripsy history of gastric bypass Full code Discharge disposition Patient is being discharged in a stable condition with guarded prognosis to home. Patient will follow-up with Dr. Mulligan upon discharge. Patient will also follow up with Dr. Carmona in the outpatient setting for stress testing this week. Total time taken is greater than 35 minutes. Hospital Course This is a 66 year old female that was recently admitted for chest pain anteri jose eduardo that had been worsening over the last few days. Cardiology evaluated the patient and recommended outpatient stress testing. Patient continued with some chest pain that was heavy at times although improved from admission. Patient had been up and down the halls to evaluate for any worsening chest pain or any other symptoms such as shortness of breath and patient denied any worsening. Recommending staying overnight for close observation and patient was keen on going home after talking with cardilogy and has appointment for stress test this week. Patient educated and instructed to call 911 or report to closest ER if any symptoms persist or worsen and patient agrees. Patient is extremely anxious to go home. Currently no reports of chest pain, shortness of breath, or palpitations. Patient is afebrile. No reports of nausea or vomiting and patient is tolerating diet. Patient will be discharged home today. Guarded prognosis. On exam vital signs are stable. Cardio S1, S2 are muffled. Respiratory shows diminished breath sounds at the bases with no wheezing or rhonchi noted. Abdomen is soft and non-tender. Nervous system shows no focal deficits. Please refer to medication reconciliation sheet for a list of medications. Patient Condition at Discharge: Stable Plan - Discharge Summary Discharge Rx Participant: No New Discharge Prescriptions: Continue Zinc 50 mg PO DAILY Ferrous Sulfate [Iron (65 MG Elemental)] 325 mg PO BID Ergocalciferol [Vitamin D2 (1250 Mcg = 00390 Iu)] 1,250 mcg PO TH Vision Vitamin(Unknown) 1 tab PO DAILY Discharge Medication List Zinc 50 mg PO DAILY 04/25/20 [History] Ergocalciferol [Vitamin D2 (1250 Mcg = 97962 Iu)] 1,250 mcg PO TH 05/02/21 [History] Ferrous Sulfate [Iron (65 MG Elemental)] 325 mg PO BID 05/02/21 [History] Vision Vitamin(Unknown) 1 tab PO DAILY 05/02/21 [History] Follow up Appointment(s)/Referral(s): Antonio Carmona MD [STAFF PHYSICIAN] - 1 Week Jessica Mulligan III, MD [Primary Care Provider] - 1-2 days Patient Instructions/Handouts: Chest Pain (DC) Activity/Diet/Wound Care/Special Instructions: Patient is to follow-up with cardiology this week for outpatient stress test Activity Limited until follow-up Continue current medications Follow-up primary care provider on discharge Continue current diet If experiencing any symptoms of chest pain shortness of breath dizziness, lightheadedness please call 911 or report to her nearest emergency department Discharge Disposition: HOME SELF-CARE
[2021-05-07] MEDS ORDERED: ERGOCALCIFEROL 1,250 MCG (50,000 IU) CAPSULE PO SCH (09:00)
== END 2021-05-03 13:11 | disposition home or self-care (01) ==
LOC: EC 10:22 → 6NMEDSUR 12:23
PROVIDERS: ADMIT Hospitalist; ATTEND Hospitalist
DX: R07.89 Other chest pain (principal); R00.2 Palpitations; G43.909 Migraine, unspecified, not intractable, without status migrainosus; K21.9 Gastro-esophageal reflux disease without esophagitis; E78.5 Hyperlipidemia, unspecified; Z88.5 Allergy status to narcotic agent; Z88.0 Allergy status to penicillin; Z88.2 Allergy status to sulfonamides; Z88.8 Allergy status to other drugs, medicaments and biological substances; Z88.6 Allergy status to analgesic agent; Z88.4 Allergy status to anesthetic agent; Z91.040 Latex allergy status; Z98.84 Bariatric surgery status; Z90.49 Acquired absence of other specified parts of digestive tract; Z90.710 Acquired absence of both cervix and uterus; Z87.442 Personal history of urinary calculi; Z87.440 Personal history of urinary (tract) infections; Z87.42 Personal history of other diseases of the female genital tract; Z87.892 Personal history of anaphylaxis; Z90.722 Acquired absence of ovaries, bilateral; Z98.890 Other specified postprocedural states; Z82.49 Family history of ischemic heart disease and other diseases of the circulatory system
CPT/HCPCS: 99285; 36415; 93005; 85379; 80061; 80053; 80048; 84443; 83735; 84484; 85025 ×2; 85610; 85730; 87635; 71046; G0378 ×2

== ENCOUNTER → 2021-08-14 | Outpatient (CLI) | payer MEDICARE ==
--- NOTE | 2021-08-14 09:24 | FL ---
ESOPHOGRAM. HISTORY: Dysphagia Esophagram was performed per the air contrast technique. The patient swallowed barium and effervesce nt crystals without difficulty or delay. Esophageal peristalsis and motility appear to be within normal limits. There is no evidence for filling defect, mass or diverticulum. Small reducible sliding type hiatal hernia. Subsequently single contrast cervical esophagram was performed which fails demonstrate evidence for a spiration penetration or mass. IMPRESSION: Small reducible sliding type hiatal hernia.
== END | disposition home or self-care (01) ==
LOC: RADFLMAIN 08:05
PROVIDERS: ATTEND Surgery Plastic and Reconstructive Surgery
DX: K44.9 Diaphragmatic hernia without obstruction or gangrene (principal); R13.10 Dysphagia, unspecified
CPT/HCPCS: 74220

== ENCOUNTER → 2021-09-02 | Outpatient (CLI) | payer MEDICARE ==
[2021-09-02 15:59] VITALS: BP 158/84; PULSE 95; TEMP 98; BMI 32.5
--- NOTE | 2021-09-02 17:20 | P.BASOAP ---
Subjective Progress Note Date: 09/02/21 Needs hiatal hernia repair due to atypical chest pain. Schedule as needed. Barium swallow. Objective - Vital Signs Vital signs: Vital Signs Temp 98 F 09/02/21 15:53 Pulse 95 09/02/21 15:53 Resp BP 158/84 09/02/21 15:53 Pulse Ox Intake & Output 09/01/21 09/02/21 09/02/21 18:59 06:59 18:59 Weight 82.1 kg Assessment/Plan Plan: Date: 09/02/21 Initial Weight: 93.576 kg Initial BMI: 37.1 Current Weight: 82.1 kg Current BMI: 32.5 Type of Surgery: Total Volume in Band: Previous Volume: Volume Removed: Volume Added: Band Size:
== END | disposition home or self-care (01) ==
LOC: BARWHC3 14:55
PROVIDERS: ATTEND Surgery Plastic and Reconstructive Surgery
DX: K44.9 Diaphragmatic hernia without obstruction or gangrene (principal); R07.9 Chest pain, unspecified
CPT/HCPCS: 99211

== ENCOUNTER → 2022-02-01 | Outpatient (CLI) | payer MEDICARE ==
--- NOTE | 2022-02-01 09:00 | BD ---
EXAMINATION TYPE: Axial Bone Density DATE OF EXAM: 02/01/2022 COMPARISON: NONE CLINICAL HISTORY: 67 years year old Female. ICD-10 CODE: M81.0 OSTEOPOROSIS Height: 62 Weight: 180.4 FRAX RISK QUESTIONS: Alcohol (3 or more units per day): NO Family History (Parent hip fracture): NO Glucocorticoids (More than 3mos): NO History of Fracture in Adulthood: NO Secondary Osteoporosis: 1. Type 1 Diabetes: NO 2. Hyperthyroidism: NO 3. Menopause before 45: YES 4. Malnutrition: NO 5. Chronic liver disease: NO Rheumatoid Arthritis: NO Current Tobacco Use: NO RISK FACTORS HISTORY OF: Hip Fracture (Right/Left): NO Spine Fracture: NO History of Wrist Fracture: NO Surgery to Spine/Hip(right/left)/Wrist (right/left): NO Family History of Osteoporosis: NO Active: YES Diet low in dairy products/other sources of calcium: NO Postmenopausal woman: YES Take estrogen and/or progesterone medications: NO Lost more than 2 inches in height since high school: NO Frequent falls: NO Poor Health: NO Hyperparathyroidism: NO Adrenal Insufficiency: NO MEDICATIONS: Prednisone or other steroids: NO Thyroid Medications: NO Osteoporosis Medications: NO Additional Medications: VIT D, Additional History: EXAM MEASUREMENTS: Bone mineral densitometry was performed using the [employer] System. Bone mineral density as measured about the Lumbar spine is: ----- L1-L4(G/cm2): 1.048 T Score Values are as follows: ----- L1: -1.8 ----- L2: -1.6 ----- L3: -0.5 ----- L4: -0.8 ----- L1-L4: -1.1 BASELINE STUDY Bone mineral density about the R hip (g/cm2): 0.905 Bone mineral density about the L hip (g/cm2): 0.844 T Score values are as follows: -----R Neck: -1.0 -----L Neck: -1.4 -----R Total: -0.2 -----L Total: -0.6 BASELINE STUDY FRAX%s: The graph provided illustrates a 8.4% chance for a major osteoporotic fx and a 0.8% chance fo r the hips probability for fx in 10 years time. IMPRESSION: Osteopenia (T Score between -2.5 and -1). There is slightly increased risk of fracture and the patient may be considered for treatment. Re-Screen 2-5 years. NOTE: T-SCORE=SD OF THE YOUNG ADULT MEAN.
--- NOTE | 2022-02-01 09:54 | MM ---
Reason for Exam: Screening (asymptomatic). Last mammogram was performed 1 year(s) and 8 month(s) ago. Patient History: Menarche at age 13. First Full-Term at age 18. Left ovary removed at age 41. Right ovary removed at age 41. Hysterectomy at age 41. Postmenopausal. Estrogen, starting at age 41 for 9 years. Patient used Hormonal Contraceptives for 5 years. Risk Values: Jennifer 5 year model risk: 1.2%. NCI Lifetime model risk: 4.4%. Prior Study Comparison: 03/16/2018 Bilateral Screening Mammogram, [facility]. 05/01/2019 Bilateral Screening Mammogram, [facility]. 06/02/2020 Bilateral Screening Mammogram, [facility]. Tissue Density: The breast tissue is almost entirely fat. Findings: Analyzed By CAD. There is no suspicious group of microcalcifications or new suspicious mass in either breast. Overall Assessment: Negative, BI-RAD 1 Management: Screening Mammogram of both breasts in 1 year. A clinical breast exam by your physician is recommended on an annual basis and results should be correlated with mammographic findings. Electronically signed and approved by: Fidel Main DO
== END | disposition home or self-care (01) ==
LOC: RADMAMWWP 07:58
PROVIDERS: ATTEND Internal Medicine Geriatric Medicine
DX: Z12.31 Encounter for screening mammogram for malignant neoplasm of breast (principal); M81.0 Age-related osteoporosis without current pathological fracture; R92.8 Other abnormal and inconclusive findings on diagnostic imaging of breast
CPT/HCPCS: 77063; 77067; 77080

== ENCOUNTER → 2022-02-11 | Outpatient (CLI) | payer MEDICARE ==
[2022-02-11 14:44] LABS: INR 0.9 (<1.2); Partial Thromboplastin Time 23.2 sec (22.0-30.0); Prothrombin Time 10.1 sec (9.0-12.0)
[2022-02-11 18:01] LABS: HCT 41.6 % (37.2-46.3); HGB 13.4 g/dL (12.0-15.0); MCH 29.8 pg (27.0-32.0); MCHC 32.2 g/dL (32.0-37.0); MCV 92.4 fL (80.0-97.0); Mean Platelet Volume 10.3 fL (9.5-12.2); NRBC Per 100 WBC 0 /100 WBCS (0.0-0.0); Platelet Count 301 X 10*3/uL (140-440); RDW 13.3 % (11.5-14.5); WBC 7.28 X 10*3/uL (4.50-10.00)
[2022-02-11 19:13] LABS: % Iron Saturation 12.14 (12.00-45.00); ALT 13 U/L (8-44); AST 18 U/L (13-35); Albumin 4.2 g/dL (3.8-4.9); Albumin/Globulin Ratio 1.93 (1.60-3.17); Alkaline Phosphatase 67 U/L (41-126); Blood Urea Nitrogen 16.6 mg/dL (9.0-27.0); Calcium 8.8 mg/dL (8.7-10.3); Carbon Dioxide 26.4 mmol/L (20.0-27.5); Chloride 106 mmol/L (96-109); Globulin 2.2 g/dL (1.6-3.3); Glucose 98 mg/dL (70-110); Iron 47 ug/dL (50-170); Magnesium 2.4 mg/dL (1.5-2.4); Non-African American GFR(CKD) 65.6 (60.0-200.0); Phosphorus 3.9 mg/dL (2.4-5.1); Potassium 4.1 mmol/L (3.5-5.5); Sodium 142 mmol/L (135-145); Total Iron Binding Capacity 386 ug/dL (228-460); Total Protein 6.3 g/dL (6.2-8.2)
[2022-02-11 19:20] LABS: Chol/HDL Ratio 3.92 Ratio; LDL Cholesterol,Calculated 96.6 mg/dL (0.0-131.0); Prealbumin 18.5 mg/dL (18.0-42.0)
[2022-02-12 16:03] LABS: Zinc, Serum 97 ug/dL (60-130)
== END | disposition home or self-care (01) ==
LOC: LABWHC1 12:50
PROVIDERS: ATTEND Surgery Plastic and Reconstructive Surgery
DX: E66.01 Morbid (severe) obesity due to excess calories (principal); D50.8 Other iron deficiency anemias; D50.9 Iron deficiency anemia, unspecified; K91.2 Postsurgical malabsorption, not elsewhere classified; E44.0 Moderate protein-calorie malnutrition; E44.1 Mild protein-calorie malnutrition; E45 Retarded development following protein-calorie malnutrition; E46 Unspecified protein-calorie malnutrition; E55.9 Vitamin D deficiency, unspecified; K74.1 Hepatic sclerosis; N19 Unspecified kidney failure; T56.894A Toxic effect of other metals, undetermined, initial encounter
CPT/HCPCS: 36415; 80053; 80061; 82306; 82525; 82607; 82728; 82746; 83036; 83540; 83550; 83735; 83970; 84100; 84134; 84255; 84425; 84443; 84590; 84630; 85027; 85610; 85730

== ENCOUNTER → 2022-02-17 | Outpatient (CLI) | payer MEDICARE ==
[2022-02-17 13:25] VITALS: BP 117/79; PULSE 82; TEMP 98; BMI 31.8
--- NOTE | 2022-02-17 13:48 | P.BASOAP ---
Subjective Progress Note Date: 02/17/22 She has lost weight of 4 pounds. She reports weight loss from upper arm. She reports eating a lot this summer with her family. She is happy with her weight loss. She has sliding hiatal hernia. She has prior atypical chest pain only happened once. She is reports reflux. Hiatal hernia repair methods reviewed. Benefits and risks of hiatal hernia surgery described. She is pending cardiac clearance. She reports occasional left upper quadrant pain that happened once Feb 13, 4 days ago. Objective - Vital Signs Vital signs: Vital Signs Temp 98 F 02/17/22 13:19 Pulse 82 02/17/22 13:19 Resp BP 117/79 02/17/22 13:19 Pulse Ox FiO2 Intake & Output 02/16/22 02/17/22 02/17/22 18:59 06:59 18:59 Weight 80.286 kg Assessment/Plan Plan: Date: 02/17/22 Initial Weight: 93.576 kg Initial BMI: 37.1 Current Weight: 80.286 kg Current BMI: 31.8 Type of Surgery: Total Volume in Band: Previous Volume: Volume Removed: Volume Added: Band Size:
== END | disposition home or self-care (01) ==
LOC: BARWHC3 13:03
PROVIDERS: ATTEND Surgery Plastic and Reconstructive Surgery
DX: K44.9 Diaphragmatic hernia without obstruction or gangrene (principal)
CPT/HCPCS: 99211

== ENCOUNTER → 2022-04-14 | Outpatient (CLI) | payer MEDICARE ==
--- NOTE | 2022-04-14 08:55 | CT ---
EXAMINATION TYPE: CT abdomen pelvis w con DATE OF EXAM: 04/14/2022 COMPARISON: 03/10/2021 HISTORY: Left lower quadrant abdominal pain. CT DLP: 1454.3 mGycm CONTRAST: CT scan of the abdomen and pelvis is performed with Oral Contrast and with IV Contrast, patient injec anthony with 70ml mL of Isovue 300. FINDINGS: LUNG BASES-: No visible nodule. No infiltrate. LIVER/GB: The gallbladder surgically absent. No space occupying hepatic lesion. Biliary tree is of normal caliber. PANCREAS: No inflammation. No distinct mass. SPLEEN: No splenic enlargement. No lesion seen. ADRENALS: No nodule. No thickening. KIDNEYS/BLADDER: No hydronephrosis. No nephrolithiasis. No distinct renal mass. Urinary bladder g rossly unremarkable. BOWEL: Normal appendix. Normal bowel caliber. No inflammation. As the operative changes about the s tomach. GENITAL ORGANS: Hysterectomy changes. No adnexal masses seen. LYMPH NODES: No greater than 1cm abdominal or pelvic lymph nodes are appreciated. AORTA: No significant abnormality. OSSEOUS STRUCTURES: No significant abnormality is seen. OTHER: No significant additional abnormality is seen. IMPRESSION: 1. No significant abnormality to account for the patient's symptoms.
== END | disposition home or self-care (01) ==
LOC: RADCTMAIN 07:08
PROVIDERS: ATTEND Surgery Plastic and Reconstructive Surgery
DX: K57.92 Diverticulitis of intestine, part unspecified, without perforation or abscess without bleeding (principal); R10.32 Left lower quadrant pain
CPT/HCPCS: 82565; 84520; 74177; 36415; Q9967

== ENCOUNTER 2022-04-16 06:57 | Observation (INO) | payer MEDICARE ==
[2022-04-16] MEDS ORDERED: SODIUM CHLORIDE 0.9% 1,000 ML IV STA (07:41)
[2022-04-16] MEDS ORDERED: ONDANSETRON 4 MG/2 ML VIAL IVP STA (07:43)
[2022-04-16] MEDS ORDERED: FAMOTIDINE 20 MG/2 ML VIAL IV STA (07:43)
[2022-04-16] MEDS ORDERED: fentaNYL (PF) 50 MCG/ML 2 ML AMP IVP STA (07:45)
[2022-04-16] MEDS ORDERED: IOPAMIDOL CONTRAST (ORAL USE) VIAL PO PRN (07:54)
[2022-04-16 08:12] LABS: Basophils # (A) 0.1 k/uL (0-0.2); Basophils % (A) 1 %; Eosinophils # (A) 0.1 k/uL (0-0.7); Eosinophils % (A) 2 %; HCT 39.7 % (34.0-46.0); HGB 13.4 gm/dL (11.4-16.0); Lymphocytes # (A) 1.3 k/uL (1.0-4.8); Lymphocytes % (A) 22 %; MCH 30.3 pg (25.0-35.0); MCHC 33.8 g/dL (31.0-37.0); MCV 89.9 fL (80.0-100.0); Mean Platelet Volume 7.3; Monocytes # (A) 0.4 k/uL (0-1.0); Monocytes % (A) 7 %; Neutrophils # (A) 3.9 k/uL (1.3-7.7); Neutrophils % (A) 66 %; Platelet Count 280 k/uL (150-450); RBC 4.42 m/uL (3.80-5.40); RDW 13.2 % (11.5-15.5); WBC 5.9 k/uL (3.8-10.6)
[2022-04-16 08:21] LABS: ALT 16 U/L (4-34); AST 23 U/L (14-36); African American GFR (CKD) >90 (>60 ml/min/1.73 sqM); Albumin 3.9 g/dL (3.5-5.0); Alkaline Phosphatase 50 U/L (38-126); Amylase 49 U/L (30-110); Anion Gap 2 mmol/L; Blood Urea Nitrogen 15 mg/dL (7-17); Calcium 8.3 mg/dL (8.4-10.2); Carbon Dioxide 29 mmol/L (22-30); Chloride 109 mmol/L (98-107); Glucose 99 mg/dL (74-99); Lipase 103 U/L (23-300); Non-African American GFR(CKD) 88 (>60 ml/min/1.73 sqM); Potassium 3.9 mmol/L (3.5-5.1); Sodium 140 mmol/L (137-145); Total Bilirubin 0.7 mg/dL (0.2-1.3); Total Protein 6.1 g/dL (6.3-8.2)
[2022-04-16 08:26] LABS: INR 0.9 (<1.2); Partial Thromboplastin Time 22.9 sec (22.0-30.0); Prothrombin Time 10.2 sec (9.0-12.0)
--- NOTE | 2022-04-16 09:29 | CT ---
EXAMINATION TYPE: CT abdomen pelvis w con DATE OF EXAM: 04/16/2022 COMPARISON: 04/14/2022 INDICATION: Abdominal pain DLP: 1358 mGycm, Automated exposure control for dose reduction was used. CONTRAST: 100 mL of Isovue 300. Study performed with Oral Contrast TECHNIQUE: Axial images were obtained from above the diaphragm to the pubic rami in the axial plane a t 5 mm thick sections. Reconstructed images are reviewed on the computer in the coronal plane. FINDINGS: Limited CT sections are obtained the lung bases. The lung bases are clear. CT ABDOMEN: There appear to be some small varicosities at the gallbladder bed fossa just superior to the hepatic flexure. Liver: Normal Spleen: Normal Pancreas: Normal Adrenal glands: The adrenal glands are normal. Gallbladder: Normal Kidneys: No masses are evident. No hydronephrosis is present. No cysts are present. Delayed images were obtained through the kidneys, which remain unremarkable. Aorta: Vascular calcification is within the aorta. Inferior vena cava: Normal. CT PELVIS: Loops of bowel within the abdomen and pelvis are normal. Scattered diverticuli are present through th e transverse and descending colon. There are loops of bowel which are incompletely distended or lac k oral contrast limiting their evaluation. Appendix: Normal as visualized. Urinary bladder: Normal. Genitourinary structures: Uterus and ovaries are not identified. Osseous structures: No suspicious lytic or sclerotic lesions. Some degenerative disc changes present within the lower lumbar spine at the L5-S1 level with mild disc height loss at L3-4 L4-5. IMPRESSIONS: 1. No suspicious acute changes to account for patient's abdomen pain. 2. Diverticulosis without acute diverticulitis.
[2022-04-16] MEDS ORDERED: NALOXONE 0.4 MG/ML 1 ML VIAL IV PRN (09:37)
[2022-04-16] MEDS ORDERED: ONDANSETRON 4 MG/2 ML VIAL IVP PRN (09:37)
--- NOTE | 2022-04-16 09:37 | ED ---
General Adult HPI - General Chief complaint: Nausea/Vomiting/Diarrhea Stated complaint: Abdominal pain Time Seen by Provider: 04/16/22 07:06 Source: patient, RN notes reviewed Mode of arrival: ambulatory Limitations: no limitations - History of Present Illness Initial comments: Patient is a pleasant 67-year-old female presenting to the emergency department with concerns for abdominal discomfort. Symptoms have been somewhat chronic but somewhat progressed recently. Discomfort now is in the right lower abdomen as well. Patient previously has chronic left upper abdomen discomfort. Patient also has some right upper abdominal discomfort. Patient does have previous bariatric surgery. No nausea vomiting. Patient has had some diarrhea over the past couple weeks however does not have normal stools. Patient recently has seen Dr. Milan. - Related Data Home Medications Medication Instructions Recorded Confirmed Zinc 50 mg PO DAILY 04/25/20 04/14/22 Ergocalciferol [Vitamin D2 (1250 1,250 mcg PO TH 05/02/21 04/14/22 Mcg = 96493 Iu)] Vision Vitamin(Unknown) 1 tab PO DAILY 05/02/21 04/14/22 Cyanocobalamin (Vitamin B-12) 5,000 mcg PO DAILY 09/02/21 04/14/22 [Vitamin B12] Iron 64 mg PO DAILY 09/02/21 04/14/22 Ascorbic Acid [Vitamin C] 1,000 mg PO DAILY 02/17/22 04/14/22 Multivit-Min/Folic Acid/Zls315 1 each PO DAILY 02/17/22 04/14/22 [Alive Premium Adult Multivit] Previous Rx's Medication Instructions Recorded Nystatin 100,000 Unit/gm Powd 1 applic TOPICAL BID #60 gm 07/15/21 [Mycostatin Powder] Allergies Allergy/AdvReac Type Severity Reaction Status Date / Time hydrocodone [From [place]] Allergy Severe Anaphylaxis Verified 04/16/22 07:03 aspirin Allergy asthma Verified 04/16/22 07:03 attack codeine Allergy Anaphylaxis Verified 04/16/22 07:04 COVID-19 (SARS-CoV-2) Allergy Anaphylaxis Verified 04/16/22 07:04 vaccine, lory hydromorphone [From Dilaudid] Allergy Dyspnea Verified 04/16/22 07:03 influenza A (H1N1) virus Allergy Anaphylaxis Verified 04/16/22 07:04 vaccine [id number] [From influenza A (H1N1)] latex Allergy Anaphylaxis Verified 04/16/22 07:03 Penicillins Allergy Rash/Hives Verified 04/16/22 07:03 procaine [From Novocain] Allergy Anaphylaxis Verified 04/16/22 07:03 Sulfa (Sulfonamide Allergy painful Verified 04/16/22 07:03 Antibiotics) rash tamsulosin Allergy Rash/Hives Verified 04/16/22 07:03 tetanus and diphtheria Allergy Anaphylaxis Verified 04/16/22 07:04 toxoids Review of Systems ROS Statement: Those systems with pertinent positive or pertinent negative responses have been documented in the HPI. ROS Other: All systems not noted in ROS Statement are negative. Constitutional: Denies: fever Eyes: Denies: eye pain ENT: Denies: ear pain Respiratory: Denies: cough Cardiovascular: Denies: chest pain Endocrine: Denies: fatigue Gastrointestinal: Reports: as per HPI, abdominal pain, diarrhea Genitourinary: Denies: dysuria Musculoskeletal: Denies: back pain Skin: Denies: rash Neurological: Denies: weakness Past Medical History Past Medical History: GERD/Reflux, Hyperlipidemia Additional Past Medical History / Comment(s): migraines, chronic kidney stones (have required lithotripsy), UTI's, Uterine Prolapse (Not requiring surgery as of 06/14/18); Possible Ocular Migraines (Opthamologist looking into this as of June 2018) History of Any Multi-Drug Resistant Organisms: None Reported Past Surgical History: Adenoidectomy, Bariatric Surgery, Cholecystectomy, Hysterectomy, Tonsillectomy Additional Past Surgical History / Comment(s): BILATERAL oophorectomy,emergency laproscopic surgery, egd, colonoscopy, shockwave lithotripsy, gastric bypass 02-14-17 (Dr. Michelle Bernardo) Past Anesthesia/Blood Transfusion Reactions: Previous Problems w/ Anesthesia, Postoperative Nausea & Vomiting (PONV) Additional Past Anesthesia/Blood Transfusion Reaction / Comment(s): "was in coma for 4 days after exploratory laproscopy had very low blood pressure. Prior to surgery,had internal bleeding " Past Psychological History: No Psychological Hx Reported Smoking Status: Never smoker Past Alcohol Use History: None Reported Past Drug Use History: None Reported - Past Family History Mother Family Medical History: Deep Vein Thrombosis (DVT) General Exam Limitations: no limitations General appearance: alert, in no apparent distress Head exam: Present: normocephalic Eye exam: Present: normal appearance Neck exam: Present: normal inspection Respiratory exam: Present: normal lung sounds bilaterally Cardiovascular Exam: Present: regular rate, normal rhythm Expanded Peripheral pulses: 2+: Posterior Tibialis (R), Posterior Tibialis (L) GI/Abdominal exam: Present: soft, tenderness (Moderate tenderness, mostly left upper abdomen and epigastric. Mild tenderness right lower quadrant). Absent: distended, guarding, rebound, rigid Extremities exam: Present: normal inspection Neurological exam: Present: alert Psychiatric exam: Present: normal affect, normal mood Skin exam: Present: normal color Course Vital Signs 04/16/22 07:01 Temperature 97.6 F Pulse Rate 72 Respiratory 18 Rate Blood Pressure 138/79 O2 Sat by Pulse 98 Oximetry Medical Decision Making - Medical Decision Making Case was discussed with Dr. Milan who is familiar with this patient and would like her to be admitted. Patient reevaluated and updated. - Lab Data Result diagrams: 04/16/22 08:04 04/16/22 08:04 Lab Results 04/16/22 04/16/22 04/16/22 Range/Units 08:04 08:04 08:04 WBC 5.9 (3.8-10.6) k/uL RBC 4.42 (3.80-5.40) m/uL Hgb 13.4 (11.4-16.0) gm/dL Hct 39.7 (34.0-46.0) % MCV 89.9 (80.0-100.0) fL MCH 30.3 (25.0-35.0) pg MCHC 33.8 (31.0-37.0) g/dL RDW 13.2 (11.5-15.5) % Plt Count 280 (150-450) k/uL MPV 7.3 Neutrophils % 66 % Lymphocytes % 22 % Monocytes % 7 % Eosinophils % 2 % Basophils % 1 % Neutrophils # 3.9 (1.3-7.7) k/uL Lymphocytes # 1.3 (1.0-4.8) k/uL Monocytes # 0.4 (0-1.0) k/uL Eosinophils # 0.1 (0-0.7) k/uL Basophils # 0.1 (0-0.2) k/uL PT 10.2 (9.0-12.0) sec INR 0.9 (<1.2) APTT 22.9 (22.0-30.0) sec Sodium 140 (137-145) mmol/L Potassium 3.9 (3.5-5.1) mmol/L Chloride 109 H (98-107) mmol/L Carbon Dioxide 29 (22-30) mmol/L Anion Gap 2 mmol/L BUN 15 (7-17) mg/dL Creatinine 0.72 (0.52-1.04) mg/dL Est GFR (CKD-EPI)AfAm >90 (>60 ml/min/1.73 sqM) Est GFR (CKD-EPI)NonAf 88 (>60 ml/min/1.73 sqM) Glucose 99 (74-99) mg/dL Calcium 8.3 L (8.4-10.2) mg/dL Total Bilirubin 0.7 (0.2-1.3) mg/dL AST 23 (14-36) U/L ALT 16 (4-34) U/L Alkaline Phosphatase 50 (38-126) U/L Total Protein 6.1 L (6.3-8.2) g/dL Albumin 3.9 (3.5-5.0) g/dL Amylase 49 (30-110) U/L Lipase 103 (23-300) U/L - Radiology Data Radiology results: report reviewed (CT abdomen and pelvis without acute abnormality) Disposition Clinical Impression: Abdominal pain Disposition: ADMITTED IP TO THIS HOSP Is patient prescribed a controlled substance at d/c from ED?: No Referrals: Abdirizak Wilson MD [Primary Care Provider] - 1-2 days Time of Disposition: 09:37
[2022-04-16] MEDS ORDERED: fentaNYL (PF) 50 MCG/ML 2 ML AMP IVP PRN (09:38)
[2022-04-16] MEDS: SODIUM CHLORIDE 0.9% 1,000 ML IV SCH ×2 (11:10→20:02)
--- NOTE | 2022-04-16 11:32 | P.GSHP ---
History of Present Illness H&P Date: 04/16/22 CHIEF COMPLAINT: Abdominal pain HISTORY OF PRESENT ILLNESS: This is a 67-year-old female who presented to hospital with complaints of abdominal pain for the last 2 weeks. She complains of pain in the left upper quadrant across the upper abdomen and into the right upper quadrant. She reports decreased appetite and nausea with diarrhea. She describes a pulling sensation in the left upper quadrant. She reports that the sensation is similar to her adhesions that she's had in the past. She denies any blood in her stools or black stools. She does have a past surgical history that includes Benedict-en-Y gastric bypass, hysterectomy, cholecystectomy. Computed tomography scan abdomen and pelvis no suspicious acute changes to come for patient's abdominal pain. Diverticulosis without acute diverticulitis. Patient denies any fevers chills or sweats. Patient's last colonoscopy was 5 years ago with colon polyps and diverticulosis. PAST MEDICAL HISTORY: See list. PAST SURGICAL HISTORY: See list. MEDICATIONS: See list. ALLERGIES: See list. SOCIAL HISTORY: No illicit drug use. REVIEW OF SYSTEMS: CONSTITUTIONAL: Denies fever or chills. HEENT: Denies blurred vision, vision changes, or eye pain. Denies hemoptysis ENDOCRINE: Denies heat or cold intolerance. CARDIOVASCULAR: Denies chest pain or pressure. RESPIRATORY: No shortness of breath. GASTROINTESTINAL: please refer to HPI otherwise unremarkable NEURO: Denies history of seizures. PSYCH: No depression or suicidal ideation HEMATOLOGIC: Denies bleeding disorders. LYMPHATIC: The patient denies any lumps and bumps around the neck. GENITOURINARY: Denies any blood in urine or increased urinary frequency. MUSCULOSKELETAL: Denies myalgias. Denies joint swelling. Denies decreased range of motion beyond patients baseline. SKIN: Denies pruitis. Denies rash. PHYSICAL EXAM: VITAL SIGNS: Reviewed GENERAL: Well-developed in no acute distress. HEENT: No sclera icterus. Extraocular movements grossly intact. Moist buccal mucosa. Head is atraumatic, normocephalic. Hears conversational speech. No nasal drainage. NECK: Supple without lymphadenopathy. CHEST: Non-labored respirations and equal bilateral excursions. CARDIOVASCULAR: Palpable 2+ radial pulses. ABDOMEN: Soft. nondistended. Tenderness to palpation in the left upper quadrant and right upper quadrant MUSCULOSKELETAL: No clubbing or cyanosis. NEUROLOGIC: No focal or lateralizing signs. Cranial nerves II through XII grossly intact. PSYCH: Appropriate affect. Alert and oriented to person, place and time. SKIN: Well perfused. Good skin turgor. LABORATORY DATA: WBC is 5.9 Hgb 13.4 platelets 280 INR 0.9 Sodium is 140 potassium is 3.9 creatinine 0.7 to LFTs normal Lipase 103 IMAGING: CAT scan as stated above ASSESSMENT: 1. Abdominal pain likely secondary to adhesions 2. Prior history of lysis of adhesions 3. Prior surgical history includes Benedict-en-Y gastric bypass, cholecystectomy and hysterectomy PLAN: -Patient scheduled for Robotic lysis of adhesions -Keep patient nothing by mouth -Continue IV fluids -Continue antiemetics and pain medication as needed Physician Training Mgr note has been reviewed by physician. Signing provider agrees with the documented findings, assessment, and plan of care. Past Medical History Past Medical History: GERD/Reflux, Hyperlipidemia Additional Past Medical History / Comment(s): migraines, chronic kidney stones (have required lithotripsy), UTI's, Uterine Prolapse (Not requiring surgery as of 06/14/18); Possible Ocular Migraines (Opthamologist looking into this as of June 2018) History of Any Multi-Drug Resistant Organisms: None Reported Past Surgical History: Adenoidectomy, Bariatric Surgery, Cholecystectomy, Hysterectomy, Tonsillectomy Additional Past Surgical History / Comment(s): BILATERAL oophorectomy,emergency laproscopic surgery, egd, colonoscopy, shockwave lithotripsy, gastric bypass 02-14-17 (Dr. Michelle Bernardo) Past Anesthesia/Blood Transfusion Reactions: Previous Problems w/ Anesthesia, Postoperative Nausea & Vomiting (PONV) Additional Past Anesthesia/Blood Transfusion Reaction / Comment(s): "was in coma for 4 days after exploratory laproscopy had very low blood pressure. Prior to surgery,had internal bleeding " Past Psychological History: No Psychological Hx Reported Smoking Status: Never smoker Past Alcohol Use History: None Reported Past Drug Use History: None Reported - Past Family History Mother Family Medical History: Deep Vein Thrombosis (DVT) Medications and Allergies Home Medications Medication Instructions Recorded Confirmed Type No Known Home Medications 04/16/22 04/16/22 History Allergies Allergy/AdvReac Type Severity Reaction Status Date / Time hydrocodone [From [place]] Allergy Severe Anaphylaxis Verified 04/16/22 09:54 aspirin Allergy asthma Verified 04/16/22 09:54 attack codeine Allergy Anaphylaxis Verified 04/16/22 09:54 COVID-19 (SARS-CoV-2) Allergy Anaphylaxis Verified 04/16/22 09:54 vaccine, lory hydromorphone [From Dilaudid] Allergy Dyspnea Verified 04/16/22 09:54 influenza A (H1N1) virus Allergy Anaphylaxis Verified 04/16/22 09:54 vaccine [id number] 2008 [From influenza A (H1N1)] latex Allergy Anaphylaxis Verified 04/16/22 09:54 Penicillins Allergy Rash/Hives Verified 04/16/22 09:54 procaine [From Novocain] Allergy Anaphylaxis Verified 04/16/22 09:54 Sulfa (Sulfonamide Allergy painful Verified 04/16/22 09:54 Antibiotics) rash tamsulosin Allergy Rash/Hives Verified 04/16/22 09:54 tetanus and diphtheria Allergy Anaphylaxis Verified 04/16/22 09:54 toxoids Surgical - Exam Vital Signs Temp Pulse Resp BP Pulse Ox 97.6 F 72 18 138/79 98 04/16/22 07:01 04/16/22 07:01 04/16/22 07:01 04/16/22 07:01 04/16/22 07:01 Results - Labs 04/16/22 08:04 04/16/22 08:04 Abnormal Lab Results - Last 24 Hours (Table) 04/16/22 Range/Units 08:04 Chloride 109 H (98-107) mmol/L Calcium 8.3 L (8.4-10.2) mg/dL Total Protein 6.1 L (6.3-8.2) g/dL Diabetes panel 04/16/22 Range/Units 08:04 Sodium 140 (137-145) mmol/L Potassium 3.9 (3.5-5.1) mmol/L Chloride 109 H (98-107) mmol/L Carbon Dioxide 29 (22-30) mmol/L BUN 15 (7-17) mg/dL Creatinine 0.72 (0.52-1.04) mg/dL Glucose 99 (74-99) mg/dL Calcium 8.3 L (8.4-10.2) mg/dL AST 23 (14-36) U/L ALT 16 (4-34) U/L Alkaline Phosphatase 50 (38-126) U/L Total Protein 6.1 L (6.3-8.2) g/dL Albumin 3.9 (3.5-5.0) g/dL Calcium panel 04/16/22 Range/Units 08:04 Calcium 8.3 L (8.4-10.2) mg/dL Albumin 3.9 (3.5-5.0) g/dL Pituitary panel 04/16/22 Range/Units 08:04 Sodium 140 (137-145) mmol/L Potassium 3.9 (3.5-5.1) mmol/L Chloride 109 H (98-107) mmol/L Carbon Dioxide 29 (22-30) mmol/L BUN 15 (7-17) mg/dL Creatinine 0.72 (0.52-1.04) mg/dL Glucose 99 (74-99) mg/dL Calcium 8.3 L (8.4-10.2) mg/dL Adrenal panel 04/16/22 Range/Units 08:04 Sodium 140 (137-145) mmol/L Potassium 3.9 (3.5-5.1) mmol/L Chloride 109 H (98-107) mmol/L Carbon Dioxide 29 (22-30) mmol/L BUN 15 (7-17) mg/dL Creatinine 0.72 (0.52-1.04) mg/dL Glucose 99 (74-99) mg/dL Calcium 8.3 L (8.4-10.2) mg/dL Total Bilirubin 0.7 (0.2-1.3) mg/dL AST 23 (14-36) U/L ALT 16 (4-34) U/L Alkaline Phosphatase 50 (38-126) U/L Total Protein 6.1 L (6.3-8.2) g/dL Albumin 3.9 (3.5-5.0) g/dL
[2022-04-16] MEDS ORDERED: IV FLUID CONTINUATION 1,000 ML IV ONE ×2 (15:29)
[2022-04-16] MEDS ORDERED: PROPOFOL 10 MG/ML 20 ML VIAL IV ONE (15:29)
[2022-04-16] MEDS ORDERED: LIDOCAINE 2% INJ 20 MG/ML (2 ML VIAL) ONE (15:29)
--- NOTE | 2022-04-16 15:32 | P.HPADDEND ---
H&P Addendum H&P Addendum Date: 04/16/22 Patient reports epigastric pain with eating with intermittent dysphagia. She has pre-existing history of gastric ulcer and gastrojejunal stricture. Recommend an upper endoscopy dilation. Additionally, patient reports new right lower quadrant pain that started earlier this morning now worsening this af ternoon. She reports having her appendix. Also recommended robotic appendectomy.
--- NOTE | 2022-04-16 15:49 | P.PCN ---
Date of Procedure: 04/16/22 Description of Procedure: PREOPERATIVE DIAGNOSIS: Dysphagia. Epigastric abdominal pain History of gastric stricture and ulcer s/p Benedict-en-y gastric bypass. Nausea with vomiting. POSTOPERATIVE DIAGNOSIS: Dysphagia. s/p Benedict-en-y gastric bypass. Gastrojejunal stricture without chronic ulcer without perforation Diaphragmatic hiatal hernia OPERATION: Esophagogastrojejunoscopy with balloon dilatation from 15 to 20 mm. SURGEON: Michelle Bernardo MD ANESTHESIA: MAC. INDICATIONS: The patient is a -year-old female who presents with a history of dysphagia, gastric bypass including new-onset nausea and vomiting. Benefits and risks of the procedure were described. Informed consent was obtained. DESCRIPTION: The patient was brought into the endoscopy suite and laid in the left lateral decubitus position. After a timeout was confirmed, the procedure was initiated. An Olympus gastroscope was passed along the posterior oropharynx down to the distal esophagus where the squamocolumnar junction was unremarkable. The gastric pouch was entered. A gastrojejunal stricture of 15 mm was found as the adult g astroscope was 9.5 mm in size. A [employer] balloon dilator was placed through the scope. Final insufflation up to 20 mm was performed with a total of 2 minutes. The scope was advanced up to 60 cm from the incisors into the Benedict limb. The mucosa of the gastrojejunal anastomosis was intact. No chronic gastrojejunal marginal ulcer was encountered. No full-thickness injury was encountered. The GI tract was desufflated. She had mild bronchospasm. The patient tolerated the procedure well. FINDINGS: Squamocolumnar junction unremarkable at 35 cm. Diaphragmatic hiatus at 38 cm Hiatal hernia, 4 cm Gastrojejunal anastomosis at 42 cm Gastric pouch 4 cm Stricture of approximately 15 mm encountered. No chronic gastrojejunal ulceration encountered. Successful balloon dilatation to 20 mm. RECOMMENDATIONS: Upper endoscopy as needed
[2022-04-17] MEDS: SODIUM CHLORIDE 0.9% 1,000 ML IV SCH ×3 (01:22→18:09)
[2022-04-17] MEDS: PANTOPRAZOLE 40 MG/10 ML VIAL IV SCH (08:42)
--- NOTE | 2022-04-17 13:53 | P.PN ---
Subjective Progress Note Date: 04/17/22 CHIEF COMPLAINT: Abdominal pain HISTORY OF PRESENT ILLNESS: The patient is a 67-year-old female with history of gastric bypass who presents with worsening abdominal pain of the right lower quadrant including epigastrium. Upper endoscopy yesterday demonstrated gastrojejunal stricture which was dilated. She reports her pain along the right lower quadrant has worsened since admission. ROS: No fevers or chills. No new chest pain. She is passing flatus. PHYSICAL EXAM: VITAL SIGNS: Reviewed CONSTITUTIONAL: Well developed and in no acute distress. EYES: Conjuctivae without sclera icterus. Extraocular movements grossly intact. HEAD, EARS, NOSE, THROAT: Moist buccal mucosa. Head is atraumatic, normocephalic. Hears conversational speech. No nasal drainage. RESPIRATORY: Non-labored respirations and equal bilateral excursions. CARDIOVASCULAR: Palpable 2+ radial pulses. ABDOMEN: Tender right lower quadrant and left upper quadrant. MUSCULOSKELETAL: No gross deformity of the lower extremities noted. No clubbing. No cyanosis. SKIN: Good skin turgor. Well perfused. NEUROLOGIC: Cranial nerves II through XII grossly intact. No focal or lateralizing signs. PSYCH: Appropriate affect. Alert and oriented to person, place and time. CLINICAL LABS: Reviewed. Hemoglobin normal. STUDIES: CT of the abdomen and pelvis and apparently reviewed demonstrated moderate diffuse diverticulosis throughout the colon. Appendix not well visualized right lower quadrant. Questionable intussusception of jejunojejunostomy. This is my independent interpretation. ASSESSMENT: 1. Right lower quadrant abdominal pain with left upper quadrant abdominal pain 2. Personal history gastric bypass 3. Gastrojejunal stricture PLAN: 1. Since admission, patient complaining of increased right lower quadrant abdominal pain or appendix was not clearly visualized on computed tomography scan. Diagnostic laparoscopy with lysis of adhesions and appendectomy described. 2. Benefits and risks of surgical intervention were reviewed. 3. Repeat CBC and BMP Objective - Vital Signs Vital signs: Vital Signs Temp 98.4 F 04/17/22 11:27 Pulse 65 04/17/22 11:27 Resp 17 04/17/22 11:27 BP 125/68 04/17/22 11:27 Pulse Ox 94 L 04/17/22 11:27 FiO2 Intake & Output 04/16/22 04/17/22 04/17/22 18:59 06:59 18:59 Intake Total 100 240 Balance 100 240 Weight 81.647 kg Intake: IV 100 Oral 240 Other: Voiding Method Toilet # Voids 2 3 - Labs CBC & Chem 7: 04/16/22 08:04 04/16/22 08:04
[2022-04-17] MEDS ORDERED: HEPARIN SODIUM,PORCINE/PF 5,000 UNIT/0.5 ML SYRINGE SQ SCH (21:00)
[2022-04-18] MEDS: PANTOPRAZOLE 40 MG/10 ML VIAL IV SCH (08:30)
[2022-04-18] MEDS: SODIUM CHLORIDE 0.9% 1,000 ML IV SCH ×4 (08:31→20:10)
--- NOTE | 2022-04-18 08:41 | P.HPADDEND ---
H&P Addendum H&P Addendum Date: 04/18/22 Patient has persistent right lower quadrant including left upper quadrant abdominal pain and the presence of gastric bypass. Patient does have appendix poorly visualized on computed tomography scan. Appendectomy including lysis of adhesions described.
[2022-04-18 09:22] LABS: Basophils % (A) 1 %; Eosinophils # (A) 0.1 k/uL (0-0.7); Eosinophils % (A) 2 %; HCT 38.6 % (34.0-46.0); Lymphocytes # (A) 1.1 k/uL (1.0-4.8); Lymphocytes % (A) 21 %; MCH 30.5 pg (25.0-35.0); MCHC 33.6 g/dL (31.0-37.0); MCV 90.8 fL (80.0-100.0); Monocytes # (A) 0.3 k/uL (0-1.0); Monocytes % (A) 5 %; Neutrophils # (A) 3.6 k/uL (1.3-7.7); Neutrophils % (A) 69 %; Platelet Count 230 k/uL (150-450); RBC 4.25 m/uL (3.80-5.40); RDW 13.6 % (11.5-15.5); WBC 5.2 k/uL (3.8-10.6)
[2022-04-18 09:58] LABS: ALT 14 U/L (4-34); AST 17 U/L (14-36); African American GFR (CKD) >90 (>60 ml/min/1.73 sqM); Albumin 3.7 g/dL (3.5-5.0); Albumin/Globulin Ratio 1.7; Alkaline Phosphatase 53 U/L (38-126); Anion Gap 3 mmol/L; Blood Urea Nitrogen 6 mg/dL (7-17); Calcium 8.4 mg/dL (8.4-10.2); Carbon Dioxide 27 mmol/L (22-30); Chloride 110 mmol/L (98-107); Globulin 2.2 g/dL; Glucose 93 mg/dL (74-99); Non-African American GFR(CKD) 79 (>60 ml/min/1.73 sqM); Potassium 3.9 mmol/L (3.5-5.1); Sodium 140 mmol/L (137-145); Total Bilirubin 0.7 mg/dL (0.2-1.3); Total Protein 5.9 g/dL (6.3-8.2)
[2022-04-18] MEDS ORDERED: DEXAMETHASONE SOD PHOSPHATE 4 MG/ML 1 ML VIAL IV ONE (16:58)
[2022-04-18] MEDS ORDERED: IV FLUID CONTINUATION 100 ML IV ONE (16:59)
[2022-04-18] MEDS ORDERED: LACTATED RINGERS 1,000 ML IV ONE (17:08)
[2022-04-18] MEDS ORDERED: MIDAZOLAM 2 MG/2 ML VIAL ONE (17:40)
[2022-04-18] MEDS ORDERED: ROCURONIUM 10 MG/ML (5 ML VIAL) IV ONE (17:40)
[2022-04-18] MEDS ORDERED: PROPOFOL 10 MG/ML 20 ML VIAL IV ONE (17:40)
[2022-04-18] MEDS ORDERED: LIDOCAINE 2% INJ 20 MG/ML (2 ML VIAL) ONE (17:40)
[2022-04-18] MEDS ORDERED: GLYCOPYRROLATE 0.2 MG/ML 2 ML VIAL ONE (17:40)
[2022-04-18] MEDS ORDERED: NEOSTIGMINE 1 MG/ML 10 ML VIAL ONE (17:40)
[2022-04-18] MEDS ORDERED: fentaNYL (PF) 50 MCG/ML 2 ML AMP ONE (17:40)
[2022-04-18] MEDS ORDERED: SUCCINYLCHOLINE CHLORIDE 200 MG/10 ML VIAL IV ONE (17:40)
[2022-04-18] MEDS ORDERED: BUPIVACAIN-EPI 0.25%-1:200,000 30 ML VIAL SQ ONE ×2 (18:00→18:11)
[2022-04-18] MEDS ORDERED: ONDANSETRON 4 MG/2 ML VIAL IVP PRN (19:20)
[2022-04-18] MEDS ORDERED: NALOXONE 0.4 MG/ML 1 ML VIAL IV PRN (19:20)
--- NOTE | 2022-04-18 19:30 | P.OP ---
Date of Procedure: 04/18/22 Description of Procedure: SURGEON: KIM LEVY MD Preoperative Diagnosis: 1. Right lower quadrant abdominal pain 2. Left upper quadrant abdominal pain 3. History of peritoneal adhesions 4. History of gastric bypass Postoperative Diagnosis: 1. Right lower quadrant abdominal pain due to appendicitis 2. Left upper quadrant abdominal pain due to peritoneal adhesions 3. Generalized peritoneal adhesions 4. History of gastric bypass 5. Diverticulitis Procedure(s) Performed: 1. Robotic-assisted daVinci Xi laparoscopic lysis of adhesions over 30 minutes 2. Robotic-assisted daVinci Xi laparoscopic appendectomy Anesthesia: GETA, local Estimated Blood Loss (ml): 5 Pathology: other (appendix) Condition: stable Disposition: floor Operative Findings: 1. Dense adhesions left upper quadrant, epigastrium, bilateral lower abdomen small bowel to abdominal wall, lysed 2. Resolved diverticulitis with residual adhesions left lower quadrant lysed 3. No internal hernias identified at Roberts's defect or jejunojejunostomy mesenteric defect 4. Epigastric, left upper quadrant, bilateral lower abdomen on peritoneal adhesions lysed 5. Retrocecal appendix with dilated tip for clinical appendicitis, right upper quadrant INDICATIONS: The patient is a 67-year-old female who presents with history of gastric bypass, epigastric, right upper quadrant, bilateral lower abdominal pain. she has history of peritoneal adhesions. Benefits and risks, including infection, open surgery, and bleeding for additional surgery was discussed at length. Informed consent was obtained. All questions of the patient and family were answered. DESCRIPTION: The patient was transferred to the operating room and placed in supine position. The patient had previously voided. The abdomen was then prepped and draped in standard sterile fashion as I[place]an was placed along the abdomen to minimize any contamination of skin floor. After a timeout protocol was performed, attention was then brought to the left upper quadrant whereby a 0 degree 5 mm laparoscopic trocar entry was performed. The abdominal cavity was entered and insufflated to 12 mmHg pressure, which was tolerated well. Diagnostic laparoscopy demonstrated no injury to bowel, viscera or mesentery. Adhesions involving the left upper quadrant small bowel to abdominal wall, epigastrium small bowel to the abdominal wall, colon adhered to the left lower quadrant and small bowel adhered to the right lower quadrant was identified. No dilated small bowel or signs of bowel obstruction was identified. Next a robotic 8-mm trocar was placed along the left lower quadrant, 10-cm lateral to the midline. A 12 mm port was placed along the left upper quadrant and another 8-mm port left lateral abdominal wall. Ports were placed 8 cm apart from each other including 15-20 cm away from the target anatomy of the right pelvis. The patient was then placed in Trendelenburg position, at 7 down. The robotic da John XI system was primed and docked along the left side of the patient. Using atraumatic graspers and vessel sealer, the robotic system was docked and primed as described. Instruments were interchanged by the rn first assistant including graspers, robotic stapler and vessel sealer. Attention was brought to the small bowel to abdominal adhesions of the epigastrium, left upper quadrant, right lower quadrant and colon to the left lower quadrant. Adhesions were lysed with blunt dissection including vessel seal for over 30 minutes. The appendix was found retrocecal extending from the right lower quadrant to the upper quadrant along the retroperitoneum. The base of the appendix was somewhat dilated. Additionally, the small bowels investigated from the terminal ileum proximally including along the Beneditc limb. No internal hernias were identified of the Roberts's defect and jejunojejunostomy mesenteric defect. The gastric pouch was adherent to the abdominal wall at the epigastrium and lysed.. Next, attention was brought to identify the cecum. A systematic view within the abdominal cavity was started with the small bowel which was unremarkable. The base of the cecum was unremarkable. The appendix was retrocecal coursing towards right upper quadrant behind the ascending colon with additional dissection required. The base of the appendix was dilated. No perforation was identified. The appendix was dissected free from its surrounding tissues. Blue 45 mm robotic staple load was fired along the base of the appendix. The staple line was hemostatic. Hemostasis was checked prior to undocking the robot. The robot was undocked. I re-scrubbed into the case. The specimen was removed from the abdominal cavity with an Endo Catch bag through the 12 mm trocar at the left upper quadrant. All instruments and pneumoperitoneum were evacuated from the abdominal cavity. Local anesthetic was infiltrated to all wounds for postop analgesia. All incisions were also cleansed with diluted hydrogen peroxide. The incisions were closed with 4-0 Monocryl. Exofin glue was applied to the rest of the skin incisions. The patient had tolerated the procedure well. The patient was extubated successfully. The patient was transferred to the postanesthesia care unit in stable condition.
[2022-04-18] MEDS: KETOROLAC 15 MG/ML 1 ML VIAL IVP SCH (19:35)
[2022-04-18] MEDS: HEPARIN SODIUM,PORCINE/PF 5,000 UNIT/0.5 ML SYRINGE SQ SCH (20:11)
[2022-04-18] MEDS: SIMETHICONE 40 MG/0.6 ML DROPS 2,000 MG/30 ML BOTTLE PO SCH (20:11)
[2022-04-19] MEDS: ACETAMINOPHEN IV (For NPO) 1,000 MG in EMPTY BAG 1 BAG IVPB SCH ×3 (00:41→11:59)
[2022-04-19] MEDS: KETOROLAC 15 MG/ML 1 ML VIAL IVP SCH ×3 (00:41→11:59)
[2022-04-19] MEDS: SODIUM CHLORIDE 0.9% 1,000 ML IV SCH ×2 (05:32→15:33)
[2022-04-19] MEDS: HEPARIN SODIUM,PORCINE/PF 5,000 UNIT/0.5 ML SYRINGE SQ SCH (09:05)
[2022-04-19] MEDS: PANTOPRAZOLE 40 MG/10 ML VIAL IV SCH (09:05)
[2022-04-19] MEDS: SIMETHICONE 40 MG/0.6 ML DROPS 2,000 MG/30 ML BOTTLE PO SCH ×2 (09:07→12:32)
--- NOTE | 2022-04-19 13:54 | P.DS ---
Providers Date of admission: 04/16/22 09:38 Expected date of discharge: 04/19/22 Attending physician: Michelle Bernardo Consults: 04/17/22 13:47 Consult Physician Routine Consulting Provider: [facility] Consult Reason/Comments: [facility] Do you want consulting provider notified?: Yes Primary care physician: Abdirizak Wilson Hospital Course: Discharge diagnosis 1. Right lower quadrant abdominal pain due to appendicitis 2. Left upper quadrant abdominal pain due to peritoneal adhesions 3. Generalized peritoneal adhesions 4. History of gastric bypass 5. Diverticulitis Hospital course The patient is a 67-year-old female who presents with history of gastric bypass, epigastric, right upper quadrant, bilateral lower abdominal pain. She has histo ry of peritoneal adhesions. Patient is status post Robotic-assisted daVinci Xi laparoscopic lysis of adhesions and appendectomy. Patient tolerated surgery well. Her pain is controlled. She is tolerating diet. She is afebrile. She's up and ambulating. She is having flatus. She is stable for discharge. Physician Emissions Inspector note has been reviewed by physician. Signing provider agrees with the documented findings, assessment, and plan of care. Patient Condition at Discharge: Stable Plan - Discharge Summary New Discharge Prescriptions: New Ibuprofen [Motrin] 600 mg PO Q8HR PRN #30 tab PRN Reason: Pain Acetaminophen Tab [Tylenol] 1,000 mg PO Q6HR PRN #30 tablet PRN Reason: Pain Simethicone 40 mg/0.6 ml Drops [Mylicon Drops] 80 mg PO PCHS ml Discharge Medication List Acetaminophen Tab [Tylenol] 1,000 mg PO Q6HR PRN #30 tablet 04/19/22 [Rx] Ibuprofen [Motrin] 600 mg PO Q8HR PRN #30 tab 04/19/22 [Rx] Simethicone 40 mg/0.6 ml Drops [Mylicon Drops] 80 mg PO PCHS ml 04/19/22 [Rx] Follow up Appointment(s)/Referral(s): Abdirizak Wilson MD [Primary Care Provider] - 1-2 days Bariatric [place], [place] [NON-STAFF] - 04/23/22 Activity/Diet/Wound Care/Special Instructions: Wear abdominal binder at all times for comfort. No lifting over 4 pounds in 4 weeks You May shower. No bath tub soaks for two weeks Avoid steak, tough meats Use Tylenol and ibuprofen scheduled for the next 24-48 hours for best pain relief. Use ice along incisions for the today to prevent swelling. Discharge Disposition: HOME SELF-CARE
[2022-04-19 14:11] VITALS: BP 99/61; PULSE 74; RESP 18; TEMP 98.6
== END 2022-04-19 15:35 | disposition home or self-care (01) ==
LOC: EC 06:57 → INTOOBSV 09:38 → 5NMEDONC 09:38 → OBSVTOIN 09:38 → 5NMEDONC 10:18 → UNDODISIN 04-19 15:35 → UNDODISOB 04-19 15:35
PROVIDERS: ADMIT Surgery Plastic and Reconstructive Surgery; ATTEND Surgery Plastic and Reconstructive Surgery
DX: K37 Unspecified appendicitis (principal); K66.0 Peritoneal adhesions (postprocedural) (postinfection); I70.0 Atherosclerosis of aorta; M51.37 Other intervertebral disc degeneration, lumbosacral region; K57.30 Diverticulosis of large intestine without perforation or abscess without bleeding; K21.9 Gastro-esophageal reflux disease without esophagitis; R13.10 Dysphagia, unspecified; E78.5 Hyperlipidemia, unspecified; N81.4 Uterovaginal prolapse, unspecified; K44.9 Diaphragmatic hernia without obstruction or gangrene; K31.89 Other diseases of stomach and duodenum; Z98.84 Bariatric surgery status; Z79.899 Other long term (current) drug therapy; Z91.040 Latex allergy status; Z88.0 Allergy status to penicillin; Z88.2 Allergy status to sulfonamides; Z88.7 Allergy status to serum and vaccine; Z91.09 Other allergy status, other than to drugs and biological substances; Z90.49 Acquired absence of other specified parts of digestive tract; Z90.710 Acquired absence of both cervix and uterus; Z83.2 Family history of diseases of the blood and blood-forming organs and certain disorders involving the immune mechanism
CPT/HCPCS: 96361; 96374; 96375; 99285; 36415; 88304; 80053 ×2; 82150; 83690; 85025 ×2; 85610; 85730; 74177; 43245; 44970; 49329; G0378 ×4; J2250; J0330; J1100; J2710; J0690; J2405 ×2; J3010; J1885; J2704 ×2; C9113 ×3; Q9967; J1644 ×3; J2001 ×2; C1726

== ENCOUNTER → 2023-01-29 | Outpatient (CLI) | payer MEDICARE ==
[2023-01-29 09:22] LABS: INR 0.9 (<1.2); Partial Thromboplastin Time 22.8 sec (22.0-30.0)
[2023-01-29 13:08] LABS: HCT 43.4 % (37.2-46.3); HGB 14.2 d/dL (12.0-15.0); MCH 30.2 pg (27.0-32.0); MCHC 32.7 d/dL (32.0-37.0); MCV 92.3 FL (80.0-97.0); Mean Platelet Volume 9.8 FL (9.5-12.2); NRBC Per 100 WBC 0 X 10*3/uL (0.00-0.01); Platelet Count 306 X 10*3/uL (140-440); RDW 13.2 % (11.5-14.5); WBC 6.19 X 10*3/uL (4.50-10.00)
[2023-01-29 13:38] LABS: % Iron Saturation 18.11 (12.00-45.00); ALT 19 U/L (8-44); AST 18 U/L (13-35); Albumin 4.6 d/dL (3.8-4.9); Alkaline Phosphatase 62 U/L (41-126); BUN/Creat Ratio 19.78 Ratio (12.00-20.00); Blood Urea Nitrogen 17.8 mg/dL (9.0-27.0); Calcium 9.4 mg/dL (8.7-10.3); Carbon Dioxide 25.9 mmol/L (21.6-31.8); Chloride 106 mmol/L (96-109); Chol/HDL Ratio 4.16 Ratio; Globulin 2.3 d/dL (1.6-3.3); Glucose 107 mg/dL (70-110); Iron 73 UG/DL (50-170); LDL Cholesterol,Calculated 126.5 mg/dL (0.0-131.0); Magnesium 2.2 mg/dL (1.5-2.4); Phosphorus 3.9 mg/dL (2.4-5.1); Potassium 4.4 mmol/L (3.5-5.5); Sodium 144 mmol/L (135-145); Total Bilirubin 0.4 mg/dL (0.3-1.2); Total Iron Binding Capacity 403 UG/DL (228-460); Total Protein 6.9 d/dL (6.2-8.2)
[2023-01-31 13:00] LABS: Zinc, Serum 106 ug/dL (60-130)
[2023-02-01 08:38] LABS: Vit B1(Thiamine) 82 ug/L (38-122)
[2023-02-01 12:58] LABS: Vitamin A 47 ug/dL (38-106)
== END | disposition home or self-care (01) ==
LOC: LABWHC1 08:06
PROVIDERS: ATTEND Surgery Plastic and Reconstructive Surgery
DX: E66.01 Morbid (severe) obesity due to excess calories (principal); D50.8 Other iron deficiency anemias; K91.2 Postsurgical malabsorption, not elsewhere classified; E44.0 Moderate protein-calorie malnutrition; E89.1 Postprocedural hypoinsulinemia; E44.1 Mild protein-calorie malnutrition; E45 Retarded development following protein-calorie malnutrition; E46 Unspecified protein-calorie malnutrition; E55.9 Vitamin D deficiency, unspecified; K74.1 Hepatic sclerosis; N19 Unspecified kidney failure; T56.894A Toxic effect of other metals, undetermined, initial encounter; K50.90 Crohn's disease, unspecified, without complications
CPT/HCPCS: 36415; 80053; 80061; 82306; 82525; 82607; 82728; 82746; 83036; 83540; 83550; 83735; 83970; 84100; 84134; 84255; 84425; 84443; 84590; 84630; 85027; 85610; 85730

== ENCOUNTER → 2023-02-04 | Outpatient (CLI) | payer MEDICARE ==
--- NOTE | 2023-02-08 08:30 | MM ---
Reason for Exam: Screening (asymptomatic). Last mammogram was performed 1 year(s) and 1 month(s) ago. Patient History: Menarche at age 13. First Full-Term at age 18. Left ovary removed at age 41. Right ovary removed at age 41. Hysterectomy at age 41. Postmenopausal. Patient has history of breast feeding. Estrogen, starting at age 41 for 9 years. Patient used Hormonal Contraceptives for 5 years. Risk Values: Jennifer 5 year model risk: 1.2%. NCI Lifetime model risk: 4.2%. Prior Study Comparison: 05/08/2015 Screening Mammogram, [facility]. 03/16/2018 Bilateral Screening Mammogram, [facility]. 05/01/2019 Bilateral Screening Mammogram, [facility]. 06/02/2020 Bilateral Screening Mammogram, [facility]. 02/01/2022 Bilateral MG 3D screening mammo w/cad, [facility]. Tissue Density: The breast tissue is almost entirely fat. Findings: Analyzed By CAD. There is no suspicious group of microcalcifications or new suspicious mass. Overall Assessment: Negative, BI-RAD 1 Management: Screening Mammogram of both breasts in [address] [facility] will attempt to contact patient to return for supplemental views and ultrasound if indicated. Patient should continue monthly self-breast exams. A clinical breast exam by your physician is recommended on an annual basis. This exam should not preclude additional follow-up of suspicious palpable abnormalities. Note on Jennifer scores and lifetime risk: 1. A Jennifer score greater than 3% is considered moderate risk. If this is the case, consider specialist referral to assess eligibility for a risk reducing agent. 2. If overall lifetime risk for the development of breast cancer is 20% or higher, the patient may qualify for future screening with alternating mammogram and breast MRI. Electronically signed and approved by: Fidel Main DO
== END | disposition home or self-care (01) ==
LOC: RADMAMWWP 07:02
PROVIDERS: ATTEND Internal Medicine Geriatric Medicine
DX: Z12.31 Encounter for screening mammogram for malignant neoplasm of breast (principal); Z78.0 Asymptomatic menopausal state
CPT/HCPCS: 77063; 77067

== ENCOUNTER → 2023-03-23 | Outpatient (CLI) | payer MEDICARE ==
[2023-03-23 13:46] VITALS: BP 120/77; PULSE 87; TEMP 97.9; BMI 32.9
--- NOTE | 2023-03-23 14:42 | P.BASOAP ---
Subjective Progress Note Date: 03/23/23 She has weight gain and lost weight. She has gained 9 pounds and lost it. Her weight is stable. She needs vitamin D. Get labs. Nutricost and Now brands described for less fillers. She has diverticulosis. She is due for colonoscopy. Objective - Vital Signs Vital signs: Vital Signs Temp 97.9 F 03/23/23 13:27 Pulse 87 03/23/23 13:27 Resp BP 120/77 03/23/23 13:27 Pulse Ox FiO2 Intake & Output 03/22/23 03/23/23 03/23/23 18:59 06:59 18:59 Weight 83.007 kg Assessment/Plan Plan: Date: 03/23/23 Initial Weight: 93.576 kg Initial BMI: 37.1 Current Weight: 83.007 kg Current BMI: 32.9 Type of Surgery: Total Volume in Band: Previous Volume: Volume Removed: Volume Added: Band Size:
== END ==
LOC: BARWHC3 13:17
PROVIDERS: ATTEND Surgery Plastic and Reconstructive Surgery
DX: Z53.9 Procedure and treatment not carried out, unspecified reason (principal)
CPT/HCPCS: 99211

== ENCOUNTER 2023-05-23 07:56 | Day surgery (SDC) | payer MEDICARE ==
[2023-05-18 12:22] VITALS: BMI 33.6
[~2023-05-23 07:56] MED LIST changes: +LACTATED RINGERS 1,000 ML IV SCH; +LIDOCAINE 1% (10MG/ML) FOR IV START INTRADERMA PRN; -ONDANSETRON 4 MG/2 ML VIAL IVP ONE; -fentaNYL (PF) 50 MCG/ML 2 ML AMP IV PRN
[2023-05-23] MEDS ORDERED: ONDANSETRON 4 MG/2 ML VIAL ONE (08:22)
[2023-05-23 08:28] VITALS: TEMP 97.1
--- NOTE | 2023-05-23 08:47 | P.GSHP ---
History of Present Illness H&P Date: 05/23/23 CHIEF COMPLAINT: Colon screen HISTORY OF PRESENT ILLNESS: The patient is a 68-year-old female who presents for colon screen. Lower endoscopy was offered for further evaluation and management. PAST MEDICAL HISTORY: Please see list. PAST SURGICAL HISTORY: Please see list. MEDICATIONS: Please see list. ALLERGIES: Please see list. SOCIAL HISTORY: No illicit drug use FAMILY HISTORY: No reports of Crohn disease or ulcerative colitis. REVIEW OF ORGAN SYSTEMS: CONSTITUTIONAL: No reports of fevers or chills. PHYSICAL EXAM: VITAL SIGNS: Stable GENERAL: Well-developed pleasant in no acute distress. HEENT: No scleral icterus. Extraocular movements grossly intact. Moist buccal mucosa. NECK: Supple without lymphadenopathy. CHEST: Unlabored respirations. Equal bilateral excursions. CARDIOVASCULAR: Regular rate and rhythm. Distal 2+ pulses. ABDOMEN: Soft, nontender, nondistended. MUSCULOSKELETAL: No clubbing, cyanosis, or edema. ASSESSMENT: 1. Colon screen. PLAN: 1. Recommend proceeding with a lower endoscopy Past Medical History Past Medical History: GERD/Reflux, Hyperlipidemia Additional Past Medical History / Comment(s): migraines, chronic kidney stones (have required lithotripsy), UTI's, Uterine Prolapse (Not requiring surgery as of 06/14/18); Possible Ocular Migraines (Opthamologist looking into this as of June 2018) History of Any Multi-Drug Resistant Organisms: None Reported Past Surgical History: Adenoidectomy, Appendectomy, Bariatric Surgery, Cholecystectomy, Hysterectomy, Tonsillectomy Additional Past Surgical History / Comment(s): BILATERAL oophorectomy,emergency laproscopic surgery, egd, colonoscopy, shockwave lithotripsy, gastric bypass 02-14-17 (Dr. Michelle Bernardo), LYSIS OF ADHESIONS AND APPENDECTOMY 04/16/22 Past Anesthesia/Blood Transfusion Reactions: Previous Problems w/ Anesthesia, Postoperative Nausea & Vomiting (PONV) Additional Past Anesthesia/Blood Transfusion Reaction / Comment(s): "was in coma for 4 days after exploratory laproscopy had very low blood pressure. Prior to surgery,had internal bleeding " Smoking Status: Never smoker - Past Family History Mother Family Medical History: Deep Vein Thrombosis (DVT) Medications and Allergies Home Medications Medication Instructions Recorded Confirmed Type Ergocalciferol [Vitamin D2 (1250 1,250 mcg PO MO 03/23/23 05/23/23 History Mcg = 90220 Iu)] Lactulose [Cephulac] 30 gm PO W/SUPPER 05/18/23 05/23/23 History Allergies Allergy/AdvReac Type Severity Reaction Status Date / Time hydrocodone [From [place]] Allergy Severe Anaphylaxis Verified 05/23/23 08:19 aspirin Allergy asthma Verified 05/23/23 08:19 attack codeine Allergy Anaphylaxis Verified 05/23/23 08:19 COVID-19 (SARS-CoV-2) Allergy Anaphylaxis Verified 05/23/23 08:19 vaccine, lory hydromorphone [From Dilaudid] Allergy Dyspnea Verified 05/23/23 08:19 influenza A (H1N1) virus Allergy Anaphylaxis Verified 05/23/23 08:19 vaccine m-hannah-split 2008 [From influenza A (H1N1)] latex Allergy Anaphylaxis Verified 05/23/23 08:19 Penicillins Allergy Rash/Hives Verified 05/23/23 08:19 procaine [From Novocain] Allergy Anaphylaxis Verified 05/23/23 08:19 Sulfa (Sulfonamide Allergy painful Verified 05/23/23 08:19 Antibiotics) rash tamsulosin Allergy Rash/Hives Verified 05/23/23 08:19 tetanus and diphtheria Allergy Anaphylaxis Verified 05/23/23 08:19 toxoids ciprofloxacin AdvReac ACHY/PAINFUL Verified 05/23/23 08:19 JOINTS metronidazole [From Flagyl] AdvReac HEADACHE, Verified 05/23/23 08:19 ABD PAIN prednisone AdvReac N/V, Verified 05/23/23 08:19 COULDN'T SLEEP Surgical - Exam Vital Signs Temp Pulse BP Pulse Ox 97.1 F L 69 127/75 95 05/23/23 08:16 05/23/23 08:16 05/23/23 08:16 05/23/23 08:16
[2023-05-23] MEDS ORDERED: PROPOFOL 10 MG/ML 20 ML VIAL IV ONE (08:51)
--- NOTE | 2023-05-23 09:30 | P.PCN ---
Date of Procedure: 05/23/23 Description of Procedure: PREOPERATIVE DIAGNOSIS: Personal history of colon polyps Colonoscopy screening POSTOPERATIVE DIAGNOSIS: Tubular adenoma cecum Tubular adenoma ascending colon Tubular adenoma transverse colon Sigmoid diverticulosis Internal hemorrhoids, grade 2 OPERATION: Colonoscopy to the ileocecal valve and appendiceal orifice, cecum Colonoscopy with hot snare polypectomy SURGEON: Michelle Bernardo MD. ANESTHESIA: MAC. INDICATIONS: The patient is an 68-year-old female who presents personal history of colon polyps. Last colonoscopy 5 years. Benefits and risks were described and informed consent was obtained. DESCRIPTION OF PROCEDURE: The patient had undergone Miralax Prep. The patient had been brought into the operating room and laid in the left lateral decubitus position. After adequate intravenous sedation, the rectum was examined with 2% lidocaine jelly. External hemorrhoids were encountered. The rectal tone was within normal limits. No lesions were palpated in the rectal vault. An Olympus colonoscope was advanced until the cecum, ileocecal valve and appendiceal orifice were clearly viewed. The prep was fair. Sigmoid diverticulosis was encountered. Colonic polyps were found and removed. No evidence of focal colitis was found. Retroflexion of the scope demonstrated grade 2 internal hemorrhoids without active bleeding or inflammation. The colon was desufflated. The patient had tolerated the procedure well. Withdrawal time was over 6 minutes. FINDINGS: Aronchick preparation quality scale 2+ (1-5) Internal hemorrhoids, grade 1 External hemorrhoids, grade 1. No arteriovenous malformations. Sigmoid diverticulosis Removal of 3 polyps: - Snare polypectomy cecum, 11 mm tubulovillous adenoma - Snare polypectomy ascending colon, 8 mm flat villous adenoma - Snare polypectomy transverse colon, 8 mm flat villous adenoma polyp. No focal colitis. RECOMMENDATIONS: Given severity of tubular adenomas, recommend repeat colonoscopy 3 years, 2025 Plan - Discharge Summary Discharge Rx Participant: No New Discharge Prescriptions: Continue Ergocalciferol [Vitamin D2 (1250 Mcg = 31070 Iu)] 1,250 mcg PO MO Lactulose [Cephulac] 30 gm PO W/SUPPER Discharge Medication List Ergocalciferol [Vitamin D2 (1250 Mcg = 51149 Iu)] 1,250 mcg PO MO 03/23/23 [History] Lactulose [Cephulac] 30 gm PO W/SUPPER 05/18/23 [History] Follow up Appointment(s)/Referral(s): [facility] [NON-STAFF] - 06/15/23 Patient Instructions/Handouts: Diverticulosis (DC), Colorectal Polyps (GEN), Diverticulosis Diet (GEN) Activity/Diet/Wound Care/Special Instructions: Repeat colonoscopy 3 years, 2025 Discharge Disposition: HOME SELF-CARE
[2023-05-23 10:15] VITALS: BP 118/68; PULSE 78; RESP 16
== END 2023-05-23 10:40 | disposition home or self-care (01) ==
LOC: ORWHC2ENDO 07:56
PROVIDERS: ATTEND Surgery Plastic and Reconstructive Surgery
DX: Z12.11 Encounter for screening for malignant neoplasm of colon (principal); D12.0 Benign neoplasm of cecum; D12.2 Benign neoplasm of ascending colon; D12.3 Benign neoplasm of transverse colon; K57.30 Diverticulosis of large intestine without perforation or abscess without bleeding; K64.1 Second degree hemorrhoids; K64.4 Residual hemorrhoidal skin tags; Z86.010 Personal history of colon polyps; K21.9 Gastro-esophageal reflux disease without esophagitis; E78.5 Hyperlipidemia, unspecified; Z87.440 Personal history of urinary (tract) infections; Z90.49 Acquired absence of other specified parts of digestive tract; Z90.710 Acquired absence of both cervix and uterus; Z90.89 Acquired absence of other organs; Z98.84 Bariatric surgery status; Z90.722 Acquired absence of ovaries, bilateral; Z83.2 Family history of diseases of the blood and blood-forming organs and certain disorders involving the immune mechanism; Z98.890 Other specified postprocedural states; Z88.5 Allergy status to narcotic agent; Z91.040 Latex allergy status; Z88.0 Allergy status to penicillin; Z88.2 Allergy status to sulfonamides; Z88.1 Allergy status to other antibiotic agents; Z88.8 Allergy status to other drugs, medicaments and biological substances
CPT/HCPCS: 88305; 45385; J2405; J2704

== ENCOUNTER → 2023-06-01 | Outpatient (CLI) | payer MEDICARE ==
[2023-06-01 13:54] VITALS: BP 132/64; PULSE 86; RESP 16; TEMP 98.2; BMI 33.1
--- NOTE | 2023-06-01 15:05 | P.BASOAP ---
Subjective Progress Note Date: 06/01/23 DATE:06/01/23 CHIEF COMPLAINT: Status gastric bypass HISTORY OF PRESENT ILLNESS: Norman Bain is a 68-year-old female who is status post gastric bypass 02/14/2017. She is 6 years postop. She is status post lower endoscopy. She has family history of diverticulosis. She denies current abdominal pain. She has personal history of colon polyps. She presents for follow-up. Her initial weight was 206 pounds. Today she comes in weighing 184 pounds from 177 pounds 1 year ago. She has lost 7 pounds in 1 year. Her ideal body for her 5-foot, 2-/2-frame is 135 pounds. Body mass index is reduced from 37.2 to 33.1. Lifetime weight loss is 22 pounds. Lifetime percent excess weight loss is 31 %. PAST MEDICAL HISTORY: 1. Morbid obesity due to excess calories 2. BMI initial 37.2 3. History of hiatal hernia. 4. Obstructive sleep apnea. 5. Osteoarthritis of diffuse joints. 6. Kidney stones. 7. Gastroesophageal reflux disease. 8. Osteoarthritis. PAST SURGICAL HISTORY: 1. Upper endoscopy. 2. Adenoidectomy. 3. Hysterectomy. 4. Tonsillectomy. 5. Bilateral laparoscopic oophorectomy. 6. Colonoscopy. 7. History of lithotripsy. 8. EGD. 9. Cystoscopy. 10. Severe postoperative nausea and vomiting. 11. Cholecystectomy. 12. Hemorrhoidectomy MEDICATIONS: Home Medications Medication Instructions Recorded Confirmed Ergocalciferol [Vitamin D2 (1250 1,250 mcg PO MO 03/23/23 06/01/23 Mcg = 12834 Iu)] Lactulose [Cephulac] 30 gm PO W/SUPPER 05/18/23 06/01/23 ALLERGIES: Allergies Allergy/AdvReac Type Severity Reaction Status Date / Time hydrocodone [From [place]] Allergy Severe Anaphylaxis Verified 05/23/23 08:19 aspirin Allergy asthma Verified 05/23/23 08:19 attack codeine Allergy Anaphylaxis Verified 05/23/23 08:19 COVID-19 (SARS-CoV-2) Allergy Anaphylaxis Verified 05/23/23 08:19 vaccine, lory hydromorphone [From Dilaudid] Allergy Dyspnea Verified 05/23/23 08:19 influenza A (H1N1) virus Allergy Anaphylaxis Verified 05/23/23 08:19 vaccine m-hannah-split 2008 [From influenza A (H1N1)] latex Allergy Anaphylaxis Verified 05/23/23 08:19 Penicillins Allergy Rash/Hives Verified 05/23/23 08:19 procaine [From Novocain] Allergy Anaphylaxis Verified 05/23/23 08:19 Sulfa (Sulfonamide Allergy painful Verified 05/23/23 08:19 Antibiotics) rash tamsulosin Allergy Rash/Hives Verified 05/23/23 08:19 tetanus and diphtheria Allergy Anaphylaxis Verified 05/23/23 08:19 toxoids ciprofloxacin AdvReac ACHY/PAINFUL Verified 05/23/23 08:19 JOINTS metronidazole [From Flagyl] AdvReac HEADACHE, Verified 05/23/23 08:19 ABD PAIN prednisone AdvReac N/V, Verified 05/23/23 08:19 COULDN'T SLEEP SOCIAL HISTORY: Lifelong nontobacco user. She is . FAMILY HISTORY: Denies any esophageal or stomach cancer. REVIEW OF SYSTEMS: CONSTITUTIONAL: Her initial weight was 206 pounds. Her ideal body for her 5- foot, 2-1/2-frame is 135 pounds. Body mass index is reduced from 37.2. HEENT: No reports of trouble with vision, hearing or dysphagia. ENDOCRINE: No diabetes. No previous thyroid disorder. LYMPHATICS: No reports of lumps or bumps around the neck. RESPIRATORY: Has obstructive sleep apnea, resolved. No reports of dyspnea on exertion. CARDIOVASCULAR: No recent chest pain, heart attack. GASTROINTESTINAL: No dumping syndrome. MUSCULOSKELETAL: Diffuse osteoarthritis where she takes Motrin, improved. GENITONURINARY: History of kidney stones with blood in urine. NEURO: No reports of stroke or seizure disorder. PSYCH: No reports of depression or suicidal ideation. SKIN: No skin cancer. No recent rash. PHYSICAL EXAM: VITAL SIGNS: 5 feet 2-1/2 inches, 184 pounds. BMI 33.1 Vital Signs Temp 98.2 F 06/01/23 13:35 Pulse 86 06/01/23 13:35 Resp 16 06/01/23 13:35 BP 132/64 06/01/23 13:35 Pulse Ox FiO2 GENERAL: Well-developed, pleasant female in no acute distress. HEENT: Head is atraumatic, normocephalic. Extraocular movements grossly intact. NECK: Supple without lymphadenopathy. No large discrete thyroid nodule. CHEST: Nonlabored respirations with bilateral excursions. CARDIOVASCULAR: Regular rate and rhythm. ABDOMEN: Incisions intact MUSCULOSKELETAL: No clubbing, cyanosis, or edema. NEURO: No focal or lateralizing signs. Cranial nerves II-12. SKIN: Good skin turgor. Well-perfused. PSYCH: Alert to person, place and time. COLON: Aronchick preparation quality scale 2+ (1-5) Internal hemorrhoids, grade 1 External hemorrhoids, grade 1. No arteriovenous malformations. Sigmoid diverticulosis Removal of 3 polyps: - Snare polypectomy cecum, 11 mm tubulovillous adenoma - Snare polypectomy ascending colon, 8 mm flat villous adenoma - Snare polypectomy transverse colon, 8 mm flat villous adenoma polyp. No focal colitis. Final Pathologic Diagnosis A. TRANSVERSE COLON POLYP, BIOPSY: Tubular adenoma. B. ASCENDING COLON POLYP, BIOPSY: Fragmented sessile serrated adenoma. C. CECAL POLYP, BIOPSY: Sessile serrated adenoma. ASSESSMENT: 1. Morbid obesity due to excess calories. 2. Body mass index of 37.2 to 33.1 3. Epigastric abdominal pain 4. Dysphagia 5. Gastroesophageal reflux disease 6. Hypertensive heart disease 7. Metabolic syndrome. 8. Status post gastric bypass. 9. Gastrojejunal stricture. 10. Vitamin D deficiency 11. Panniculitis. 12. Thyroid nodule 13. Iron deficiency anemia 14. Hiatal hernia 15. Memory loss 16. Dietary surveillance and counseling 17. Hypertriglyceridemia 18. Atypical chest pain 19. Panniculitis PLAN: 1. She has presence of diverticulosis with increased risk of perforation. Dietary management reviewed. 2. She has higher risk colon polyps and will need repeat colonoscopy in 3 years. Objective - Vital Signs Vital signs: Vital Signs Temp 98.2 F 06/01/23 13:35 Pulse 86 06/01/23 13:35 Resp 16 06/01/23 13:35 BP 132/64 06/01/23 13:35 Pulse Ox FiO2 Intake & Output 05/31/23 06/01/23 06/01/23 18:59 06:59 18:59 Weight 83.461 kg Assessment/Plan Plan: Date: 06/01/23 Initial Weight: 93.576 kg Initial BMI: 37.1 Current Weight: 83.461 kg Current BMI: 33.1 Type of Surgery: [facility]-en-Y Gastric Bypass Total Volume in Band: Previous Volume: Volume Removed: Volume Added: Band Size:
== END ==
LOC: BARWHC3 13:13
PROVIDERS: ATTEND Surgery Plastic and Reconstructive Surgery
DX: E66.01 Morbid (severe) obesity due to excess calories (principal); R10.13 Epigastric pain; R13.10 Dysphagia, unspecified; R10.9 Unspecified abdominal pain; K21.9 Gastro-esophageal reflux disease without esophagitis; I11.0 Hypertensive heart disease with heart failure; E88.810 Metabolic syndrome; E55.9 Vitamin D deficiency, unspecified; M79.3 Panniculitis, unspecified; E04.1 Nontoxic single thyroid nodule; K44.9 Diaphragmatic hernia without obstruction or gangrene; G47.33 Obstructive sleep apnea (adult) (pediatric); E78.1 Pure hyperglyceridemia; K31.89 Other diseases of stomach and duodenum; M19.90 Unspecified osteoarthritis, unspecified site; N20.0 Calculus of kidney; R07.9 Chest pain, unspecified; Z98.890 Other specified postprocedural states; Z90.49 Acquired absence of other specified parts of digestive tract; Z68.33 Body mass index [BMI] 33.0-33.9, adult; Z98.84 Bariatric surgery status; Z90.710 Acquired absence of both cervix and uterus; Z88.5 Allergy status to narcotic agent; Z88.8 Allergy status to other drugs, medicaments and biological substances; Z88.2 Allergy status to sulfonamides; Z88.0 Allergy status to penicillin; Z91.040 Latex allergy status; Z88.7 Allergy status to serum and vaccine; Z88.3 Allergy status to other anti-infective agents; Z91.018 Allergy to other foods; Z88.1 Allergy status to other antibiotic agents
CPT/HCPCS: 99211

== ENCOUNTER 2023-12-07 16:17 | Emergency (ER) | payer OTHER, MEDICARE ==
[2023-12-07 16:28] VITALS: RESP 18
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
[2023-12-07] MEDS: KETOROLAC 15 MG/ML 1 ML VIAL IM STA (18:35)
[2023-12-07 19:00] VITALS: BP 143/81; PULSE 70; TEMP 98.4
== END 2023-12-07 19:00 | disposition home or self-care (01) ==
LOC: EC 16:17
DX: M25.511 Pain in right shoulder (principal); Z88.5 Allergy status to narcotic agent; Z88.6 Allergy status to analgesic agent; Z88.2 Allergy status to sulfonamides; Z88.0 Allergy status to penicillin; Z88.7 Allergy status to serum and vaccine; Z88.8 Allergy status to other drugs, medicaments and biological substances; V89.2XXA Person injured in unspecified motor-vehicle accident, traffic, initial encounter; Y92.411 Interstate highway as the place of occurrence of the external cause
CPT/HCPCS: 73030; 73610; 72125; 70450; 71250; 74176; 99285; 96372; J1885

== ENCOUNTER → 2024-01-09 | Outpatient (CLI) | payer OTHER, MEDICARE ==
--- NOTE | 2024-02-10 11:33 | MR ---
INDICATION: Patient age:Female; 69 years old; Reason for study: G44.309 POST-TRAUMATIC HEADACHE, UNSPECIFIED, NOT; [facility]. COMPARISON: CT brain C-spine 12/07/2023. TECHNIQUE: Multi planar, multi sequence imaging was performed through the brain. The patient was then given 9 cc of Gadavist intravenously and multi planar, T1 fat-saturation images were obtained. FINDINGS: The jason-white junctions, ventricular system, basal cisterns appear unremarkable. Diffusion-weighted imaging shows no evidence of restricted diffusion to suggest acute/subacute infarct. Intracranial art erial flow voids are maintained. Midline structures show no abnormality. Couple of high T2/FLAIR sign al foci within the left frontal lobe subcortical white matter measuring up to 4 mm. The susceptibilit y weighted images do not reveal any evidence for micro-hemorrhage. After administration of gadolinium , no abnormal enhancement is seen. The bone marrow signal is within normal limits. The paranasal sinuses and globes are unremarkable. IMPRESSION: 1. No evidence of intracranial mass, acute/subacute infarct, or abnormal enhancement. 2. Nonspecific few white matter changes, likely related to small vessel ischemic disease.
== END | disposition home or self-care (01) ==
LOC: RADMRIMAIN 06:32
PROVIDERS: ATTEND Internal Medicine Geriatric Medicine
DX: G44.309 Post-traumatic headache, unspecified, not intractable (principal)
CPT/HCPCS: 70553; A9585

== ENCOUNTER → 2024-02-14 | Outpatient (CLI) | payer MEDICARE ==
[2024-02-14 15:26] LABS: INR 0.9 (<1.2); Partial Thromboplastin Time 23.7 sec (22.0-30.0); Prothrombin Time 10.5 sec (10.0-12.5)
[2024-02-14 18:07] LABS: HCT 42.3 % (37.2-46.3); HGB 13.5 g/dL (12.0-15.0); MCH 29.2 pg (27.0-32.0); MCHC 31.9 g/dL (32.0-37.0); MCV 91.6 FL (80.0-97.0); Mean Platelet Volume 10.2 FL (9.5-12.2); NRBC Per 100 WBC 0 X 10*3/uL (0.00-0.01); Platelet Count 320 X 10*3/uL (140-440); RBC 4.62 X 10*6/uL (4.10-5.20); RDW 13.6 % (11.5-14.5); WBC 6.91 X 10*3/uL (4.50-10.00)
[2024-02-14 19:19] LABS: Prealbumin 14.9 mg/dL (18.0-42.0)
[2024-02-14 20:22] LABS: % Iron Saturation 10.62 (12.00-45.00); ALT 11 U/L (8-44); AST 14 U/L (13-35); Albumin 4.3 g/dL (3.8-4.9); Albumin/Globulin Ratio 1.79 Ratio (1.60-3.17); Alkaline Phosphatase 67 U/L (41-126); BUN/Creat Ratio 22.25 Ratio (12.00-20.00); Blood Urea Nitrogen 17.8 mg/dL (9.0-27.0); Calcium 8.9 mg/dL (8.7-10.3); Carbon Dioxide 24.4 mmol/L (21.6-31.8); Chloride 104 mmol/L (96-109); Globulin 2.4 g/dL (1.6-3.3); Glucose 102 mg/dL (70-110); Iron 43 UG/DL (50-170); LDL Cholesterol,Calculated 35.6 mg/dL (0.0-131.0); Magnesium 2.2 mg/dL (1.5-2.4); Phosphorus 4.2 mg/dL (2.4-5.1); Potassium 3.8 mmol/L (3.5-5.5); Sodium 140 mmol/L (135-145); Total Bilirubin 0.3 mg/dL (0.3-1.2); Total Iron Binding Capacity 405 UG/DL (228-460); Total Protein 6.7 g/dL (6.2-8.2)
[2024-02-15 08:32] LABS: Zinc, Serum 61 ug/dL (60-130)
[2024-02-16 06:25] LABS: Vitamin A 38 ug/dL (38-106)
[2024-02-16 08:54] LABS: Vit B1(Thiamine) 90 ug/L (38-122)
[2024-02-23 13:41] LABS: Selenium 105 mcg/L (63-160)
== END | disposition home or self-care (01) ==
LOC: LABWHC1 14:41
PROVIDERS: ATTEND Surgery Plastic and Reconstructive Surgery
DX: E66.01 Morbid (severe) obesity due to excess calories
CPT/HCPCS: 36415; 80053; 80061; 82306; 82525; 82607; 82728; 82746; 83036; 83540; 83550; 83735; 83970; 84100; 84134; 84255; 84425; 84443; 84590; 84630; 85027; 85610; 85730

== ENCOUNTER 2024-05-16 10:42 | Day surgery (SDC) | payer MEDICARE ==
[2024-05-15 09:36] VITALS: BMI 32.9
[~2024-05-16 10:42] MED LIST changes: +HYDROmorphone 0.5 MG/0.5 ML SYRINGE IVP PRN; -LACTATED RINGERS 1,000 ML IV SCH; -LIDOCAINE 1% (10MG/ML) FOR IV START INTRADERMA PRN
[2024-05-16] MEDS: OXYMETAZOLINE 0.05% NASL SPRAY 1 SPRAY BOTTLE EA NOSTRIL PRN (11:08)
[2024-05-16] MEDS: IV FLUID CONTINUATION 1,000 ML IV ONE (11:16)
[2024-05-16] MEDS: DEXAMETHASONE SOD PHOSPHATE 4 MG/ML 1 ML VIAL IV ONE (11:17)
[2024-05-16] MEDS: LACTATED RINGERS 1,000 ML IV SCH (11:17)
[2024-05-16] MEDS: FAMOTIDINE 20 MG/2 ML VIAL IV PRN (11:18)
[2024-05-16] MEDS: ONDANSETRON 4 MG/2 ML VIAL IVP ONE (11:18)
[2024-05-16] MEDS ORDERED: NEOSTIGMINE 1 MG/ML 10 ML VIAL ONE (11:33)
[2024-05-16] MEDS ORDERED: MIDAZOLAM 2 MG/2 ML VIAL ONE (11:33)
[2024-05-16] MEDS ORDERED: fentaNYL (PF) 50 MCG/ML 2 ML AMP ONE (11:33)
[2024-05-16] MEDS ORDERED: PROPOFOL 10 MG/ML 20 ML VIAL IV ONE (11:33)
[2024-05-16] MEDS ORDERED: GLYCOPYRROLATE 0.2 MG/ML 2 ML VIAL ONE (11:33)
[2024-05-16] MEDS ORDERED: ROCURONIUM 10 MG/ML (5 ML VIAL) IV ONE (11:33)
[2024-05-16] MEDS: LIDOCAINE 1%-EPI 1:100,000 20 ML VIAL SUBMUCOSAL ONE ×2 (11:43→11:50)
--- NOTE | 2024-05-16 12:11 | P.OP ---
Date of Procedure: 05/16/24 Preoperative Diagnosis: recurrent left posterior epistaxis Postoperative Diagnosis: same Procedure(s) Performed: bilateral nasal endoscopy with selective cauterization left posterior nasal cavity-posterior septum and posterior lateral nasal wall Anesthesia: RAFAELA Surgeon: Alexey Haddad Estimated Blood Loss (ml): 2 Pathology: none sent Condition: stable Disposition: PACU Indications for Procedure: this 69-year-old white female whose had difficulties with recurrent epistaxis on the left inspected the posterior which was not amenable to cauterization in office due to location Operative Findings: nasal septum deviated mildly to the left. There was a small the prominent vessel left posterior septum but more so suspicious was a prominent vessel possible small hemangioma left posterior lateral nasal wall just posterior to the inferior turbinate Description of Procedure: patient was brought in the operative suite and placed in a supine position. Patient underwent induction of general anesthesia with oral endotracheal in tubation without difficulty. The patient was prepped and draped in usual aseptic fashion. Full 0 degrees endoscopic examination is performed bilaterally. No abnormalities were noted on the right. The nasal septal vessel oh sterile the left as well as the area posterior a lateral nasal wall on the left were cauterized with suction cautery setting of 15. Excellent hemostasis was noted and remained good. No packing was required. The patient was then allowed to emerge from general anesthesia having tolerated procedure well was extubated in the operating suite and transferred to the postop recovery area in satisfactory condition
[2024-05-16 12:21] VITALS: TEMP 96.9
[2024-05-16 13:49] VITALS: RESP 16
[2024-05-16 14:13] VITALS: BP 114/73; PULSE 73
== END 2024-05-16 14:41 | disposition home or self-care (01) ==
LOC: OR 10:42
PROVIDERS: ATTEND Otolaryngology
DX: R04.0 Epistaxis (principal); E78.5 Hyperlipidemia, unspecified; K21.9 Gastro-esophageal reflux disease without esophagitis; G43.909 Migraine, unspecified, not intractable, without status migrainosus; Z90.89 Acquired absence of other organs; Z79.899 Other long term (current) drug therapy
CPT/HCPCS: 31231; 30905; J2250; J2710; J0690; J2405; J3010; J3490; J2704; J1596

== ENCOUNTER → 2024-05-23 | Outpatient (CLI) | payer MEDICARE ==
[2024-05-23 13:26] VITALS: BP 150/83; PULSE 70; RESP 16; TEMP 97.6; BMI 32.2
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
== END ==
LOC: BARWHC3 12:59
PROVIDERS: ATTEND Surgery Plastic and Reconstructive Surgery
DX: E66.01 Morbid (severe) obesity due to excess calories (principal); Z88.5 Allergy status to narcotic agent; Z88.7 Allergy status to serum and vaccine; Z88.8 Allergy status to other drugs, medicaments and biological substances; Z88.0 Allergy status to penicillin; Z88.2 Allergy status to sulfonamides; Z91.040 Latex allergy status; Z88.1 Allergy status to other antibiotic agents; Z88.6 Allergy status to analgesic agent; Z68.32 Body mass index [BMI] 32.0-32.9, adult
CPT/HCPCS: 99211

== ENCOUNTER → 2024-10-19 | Outpatient (CLI) | payer MEDICARE ==
[2024-10-19 15:14] LABS: Basophils # (A) 0.06 X 10*3/uL (0.00-0.10); Eosinophils # (A) 0.12 X 10*3/uL (0.04-0.35); Eosinophils % (A) 1.9 %; HCT 44.3 % (37.2-46.3); HGB 13.7 g/dL (12.0-15.0); Lymphocytes # (A) 1.57 X 10*3/uL (0.90-5.00); Lymphocytes % (A) 25.1 %; MCH 29.1 pg (27.0-32.0); MCHC 30.9 g/dL (32.0-37.0); MCV 94.1 FL (80.0-97.0); Mean Platelet Volume 10.2 FL (9.5-12.2); Monocytes # (A) 0.49 X 10*3/uL (0.20-1.00); Monocytes % (A) 7.8 %; NRBC Per 100 WBC 0 X 10*3/uL (0.00-0.01); Neutrophils # (A) 3.99 X 10*3/uL (1.80-7.70); Neutrophils % (A) 63.7 %; Platelet Count 352 X 10*3/uL (140-440); RBC 4.71 X 10*6/uL (4.10-5.20); RDW 12.9 % (11.5-14.5); WBC 6.26 X 10*3/uL (4.50-10.00)
[2024-10-19 15:41] LABS: ALT 12 U/L (8-44); AST 18 U/L (13-35); Albumin/Globulin Ratio 1.48 Ratio (1.60-3.17); Alkaline Phosphatase 61 U/L (41-126); Calcium 9.1 mg/dL (8.7-10.3); Carbon Dioxide 24.6 mmol/L (21.6-31.8); Chloride 105 mmol/L (96-109); Chol/HDL Ratio 3.34 Ratio; Globulin 2.7 g/dL (1.6-3.3); Glucose 100 mg/dL (70-110); LDL Cholesterol,Calculated 102.8 mg/dL (0.0-131.0); Potassium 4.3 mmol/L (3.5-5.5); Sodium 142 mmol/L (135-145); T4, Free (Free Thyroxine) 1.18 ng/dL (0.80-1.80); Total Bilirubin 0.3 mg/dL (0.3-1.2); Total Protein 6.7 g/dL (6.2-8.2)
== END | disposition home or self-care (01) ==
LOC: LABWHC1 09:00
PROVIDERS: ATTEND Internal Medicine Geriatric Medicine
DX: D64.9 Anemia, unspecified (principal); E78.5 Hyperlipidemia, unspecified; R73.9 Hyperglycemia, unspecified; E03.9 Hypothyroidism, unspecified
CPT/HCPCS: 36415; 80053; 80061; 83036; 84439; 84443; 85025